=== PATIENT | male | born 1960 | race Caucasian/White ===

== ENCOUNTER 2019-05-22 04:57 | Observation (INO) | payer OTHER ==
[2019-05-22] MEDS ORDERED: DECADRON 10MG INJ. IV ONE (05:08)
[2019-05-22] MEDS ORDERED: BENADRYL 50 MG/ML IV ONE (05:08)
[2019-05-22] MEDS ORDERED: Hydromorphone 1 mg/ml Ampule IV ONE (05:08)
[2019-05-22] MEDS ORDERED: TYLENOL 325 MG PO ONE (05:08)
[2019-05-22] MEDS ORDERED: DECADRON 10MG INJ. ONE (05:27)
[2019-05-22] MEDS ORDERED: BENADRYL 50 MG/ML ONE (05:27)
--- NOTE | 2019-05-22 05:27 | ERPHSYRPT ---
- History of Present Illness Time Seen by Provider: 05/22/19 05:10 Source: patient Exam Limitations: no limitations Patient Subjective Stated Complaint: pt states he woke up in middle of the night with pain in hip that goes down to ouside of lower leg. States it hurt so bad he could not catch his breath. at that point pt took pain meds and came to er. Triage Nursing Assessment: pt alert and oriented, states that his pain in his leg is 8/10. pt arrived in wheelchair and had some difficulty ambulating to bed with his r leg pain. Physician History: Patient has pain in the low back/right hip area radiating down his right thigh down to his foot. Patient denies any recent trauma, repetitive bending or lifting, fevers, chills, urinary retention, uncontrollable diarrhea or perineal numbness. Patient has not had any new weakness in the right lower leg in comparison to the left leg. Patient states he may have had an epidural in lumbar spine over 3 months ago by a buildings painter in [place], [place]. He did have lumbar surgery 2 years ago without any relief of his low back pain. Patient tried his pain medication Percocet without any relief of his symptoms. Timing/Duration: other (chronic pain in his low back that radiates into his leg ; 4 hours prior to coming into the emergency department, patient had a flare-up of pain) Method of Injury: unknown Quality: radiating Back Pain Location: lumbar spine Back Pain Radiation: upper legs (right thigh mainly) Severity of Pain-Max: severe Severity of Pain-Current: severe Modifying Factors: Improves With: pain medication (minimal relief). Worsens With: rest (laying flat while sleeping) Associated Symptoms: lower back pain, No fever, No chills, No sweating, No urinary incontinence, No loss of bowel control, No constipation, No nausea, No vomiting, No problems urinating, No light-headedness, No dizziness, No numbness in legs/feet, No weakness, No tingling in legs/feet, No muscle spasms Previous symptoms: same symptoms as today, no recent treatment Allergies/Adverse Reactions: No Known Drug Allergies Allergy (Verified 05/22/19 05:19) Home Medications: Hydrocodone Bit/Acetaminophen [Gattman 10-325 Tablet] 1 each PO QID 12/23/14 [ History] Citalopram Hydrobromide 20 mg* [ceLEXa 20 MG] 20 mg PO DAILY 12/31/15 [ History] Omeprazole 20 MG [Prilosec 20 mg] 20 mg PO BID 12/31/15 [History] Amlodipine Besylate/Valsartan [Amlodipine-Valsartan 10-320 mg] 1 each PO DAILY 12/03/16 [History] Benazepril HCl 10 mg [Lotensin 10 MG] 10 mg PO DAILY 12/03/16 [History] Methocarbamol [Robaxin-750] 750 mg PO Q6H 12/03/16 [History] Naproxen 375 mg [Naprosyn 375 mg] 375 mg PO BID 12/03/16 [History] Nitroglycerin 0.4 mg Tablet [Nitrostat 0.4 MG Tablet] 0.4 mg SL Q5MIN PRN MR X 3 PRN 12/03/16 [History] Simvastatin [Zocor] 20 mg PO DAILY 12/03/16 [History] Tizanidine HCl 4 mg [Zanaflex 4 MG] 4 mg PO TIDPRN PRN 08/04/17 [History] Hx Influenza Vaccination/Date Given: No Hx Pneumococcal Vaccination/Date Given: No - Review of Systems Constitutional: No Fever, No Chills, No Fatigue Eyes: No Symptoms, No Eye Pain, No Vision Changes Ears, Nose, & Throat: No Symptoms, No Throat Swelling, No Painful Swallowing, No Stridor Respiratory: No Cough, No Dyspnea Cardiac: No Chest Pain, No Edema, No Syncope Abdominal/Gastrointestinal: No Abdominal Pain, No Nausea, No Vomiting, No Diarrhea, No Hematemesis, No Hematochezia, No Melena Genitourinary Symptoms: No Dysuria, No Frequency, No Hematuria, No Flank Pain Musculoskeletal: Back Pain, No Neck Pain Skin: No Rash Neurological: No Dizziness, No Focal Weakness, No Headache, No Parasthesia, No Sensory Changes, No Speech Changes Psychological: No Symptoms Endocrine: No Symptoms Hematologic/Lymphatic: No Easy Bleeding, No Easy Bruising All Other Systems: Reviewed and Negative - Past Medical History Pertinent Past Medical History: Yes Neurological History: No Pertinent History ENT History: No Pertinent History Cardiac History: Angina, Coronary Artery Disease, Hypertension Respiratory History: Asthma, COPD Endocrine Medical History: Diabetes Type II, Liver Disease Musculoskeletal History: Arthritis GI Medical History: Ulcer History: No Pertinent History Psycho-Social History: Depression Male Reproductive Disorders: No Pertinent History Other Medical History: DM2. - Past Surgical History Past Surgical History: Yes Neuro Surgical History: No Pertinent History Cardiac: Cardiac Catheterization Respiratory: No Pertinent History Gastrointestinal: Cholecystectomy Genitourinary: No Pertinent History Musculoskeletal: Joint Replacement, Orthopedic Surgery Male Surgical History: No Pertinent History Other Surgical History: gastric bypass. rt knee arthroscopy and replacement, VINCENT - Social History Smoking Status: Never smoker Exposure to second hand smoke: No Drug Use: none Patient Lives Alone: No - Nursing Vital Signs Nursing Vital Signs: Initial Vital Signs Temperature 97.9 F 05/22/19 05:02 Pulse Rate 77 05/22/19 05:02 Respiratory Rate 16 05/22/19 05:02 O2 Sat by Pulse Oximetry 95 05/22/19 05:02 Pain Scale Pain Intensity [Right Calf] 8 Pain Intensity 6 - Physical Exam General Appearance: no apparent distress, alert Eye Exam: PERRL/EOMI, eyes nml inspection, No scleral icterus, No pale conjunctivae Ears, Nose, Throat Exam: pharynx normal, moist mucous membranes Neck Exam: normal inspection, non-tender, supple, full range of motion, No meningismus, No midline tenderness Respiratory Exam: normal breath sounds, lungs clear, airway intact, No respiratory distress, No diminished breath sounds, No accessory muscle use, No crackles/rales, No rhonchi, No wheezing, No stridor Cardiovascular Exam: regular rate/rhythm, normal heart sounds, normal peripheral pulses, capillary refill <2 sec Gastrointestinal Exam: soft, normal bowel sounds, No tenderness, No mass, No guarding, No rebound Back Exam: decreased range of motion, No CVA tenderness, No vertebral tenderness , No point tenderness Extremity Exam: normal inspection, normal range of motion, No calf tenderness, No pedal edema Neurologic Exam: alert, oriented x 3, cooperative, hospital sales representative II-XII nml as tested, normal mood/affect, nml station & gait, sensation nml, No motor deficits Skin Exam: normal color, warm, dry, No rash SpO2 Interpretation: normal SpO2: 95 O2 Delivery: Room Air - Course Nursing assessment & vital signs reviewed: Yes EKG Interpreted by Me: RATE, NORMAL AXIS, NORMAL INTERVALS, NORMAL QRS, NORMAL ST-T, Other (no change in comparison to EKG from 05/18/2017) Rhythm Strip: Normal Sinus Rhythm - CT Exams Abdomen CT Interpretation: Other (per Radiologist Interpretation: Mild diffuse fecal stasis, colonic diverticulosis. 1 cm right renal cyst, mild fatty liver and multilevel DDD. Normal appendix. Gastric bypass symptoms and meehan catheter in situ) Ordered Tests: Active Orders 24 hr Category Date Time Status Pneumatic Deicer Inspector STAT Care 05/22/19 05:35 Active Catheter-Roselle Meehan STAT Care 05/22/19 06:18 Active EKG-ER Only STAT Care 05/22/19 06:10 Active IV Insertion STAT Care 05/22/19 05:08 Active ABDOMEN AND PELVIS W/0 CONTRAS [CT] Stat Exams 05/22/19 06:12 Taken AMYLASE Stat Lab 05/22/19 05:15 Completed CBC W DIFF Stat Lab 05/22/19 05:15 Completed CK-Creatinine Phosphokinase Stat Lab 05/22/19 05:15 Completed CMP Stat Lab 05/22/19 05:15 Completed LIPASE Stat Lab 05/22/19 05:15 Completed Lactic Acid Stat Lab 05/22/19 05:32 Completed MAGNESIUM Stat Lab 05/22/19 05:15 Completed PROTIME WITH INR Stat Lab 05/22/19 05:15 Completed TROPONIN Q3H Lab 05/22/19 05:15 Received TROPONIN Q3H Lab 05/22/19 08:45 Ordered TROPONIN Q3H Lab 05/22/19 11:45 Ordered TROPONIN Q3H Lab 05/22/19 14:45 Ordered TROPONIN Q3H Lab 05/22/19 17:45 Ordered UA W/RFX UR CULTURE Stat Lab 05/22/19 05:33 Completed Urine Triage Profile Stat Lab 05/22/19 05:33 Ordered Transfer Order Routine Transfer 05/22/19 Ordered Medication Summary Discontinued Medications Generic Name Dose Route Start Last Admin Trade Name Freq PRN Reason Stop Dose Admin Acetaminophen 975 mg 05/22/19 05:08 05/22/19 05:30 Tylenol 325 Mg PO 05/22/19 05:09 975 mg STAT ONE Administration Acetaminophen Confirm 05/22/19 05:28 Tylenol 325 Mg Administered 05/22/19 05:29 Dose 975 mg .ROUTE .STK-MED ONE Calcium Gluconate 1,000 mg 05/22/19 06:12 05/22/19 06:47 Calcium Gluconate 10% 1000 Mg IV 05/22/19 06:13 1,000 mg STAT ONE Administration Calcium Gluconate Confirm 05/22/19 06:26 Calcium Gluconate 10% 1000 Mg Administered 05/22/19 06:27 Dose 1,000 mg IV .STK-MED ONE Dexamethasone Sodium Phosphate 10 mg 05/22/19 05:08 05/22/19 05:31 Decadron 10mg Inj. IV 05/22/19 05:09 10 mg STAT ONE Administration Dexamethasone Sodium Phosphate Confirm 05/22/19 05:27 Decadron 10mg Inj. Administered 05/22/19 05:28 Dose 10 mg .ROUTE .STK-MED ONE Dextrose 50 ml 05/22/19 06:12 05/22/19 06:47 D50w 50 Ml Abboject IV 05/22/19 06:13 50 ml STAT ONE Administration Diphenhydramine HCl 50 mg 05/22/19 05:08 05/22/19 07:03 Benadryl 50 Mg/Ml IV 05/22/19 05:09 Not Given STAT ONE Diphenhydramine HCl Confirm 05/22/19 05:27 Benadryl 50 Mg/Ml Administered 05/22/19 05:28 Dose 50 mg .ROUTE .STK-MED ONE Hydromorphone HCl 2 mg 05/22/19 05:08 05/22/19 07:04 Hydromorphone 1 Mg/Ml Ampule IV 05/22/19 05:09 Not Given STAT ONE Hydromorphone HCl Confirm 05/22/19 05:28 Hydromorphone 1 Mg/Ml Ampule Administered 05/22/19 05:29 Dose 2 mg .ROUTE .STK-MED ONE Sodium Chloride Confirm 05/22/19 05:34 Sodium Chloride 0.9% 1000 Ml Administered 05/22/19 05:35 Dose 1,000 mls @ ud .ROUTE .STK-MED ONE Sodium Chloride 1,000 mls @ 999 mls/hr 05/22/19 05:32 05/22/19 07:14 Sodium Chloride 0.9% 1000 Ml IV 05/22/19 06:32 Infused .Q1H1M STA Infusion Sodium Chloride 1,000 mls @ 999 mls/hr 05/22/19 06:12 05/22/19 07:08 Sodium Chloride 0.9% 1000 Ml IV 05/22/19 07:12 999 mls/hr .Q1H1M STA Administration Sodium Chloride Confirm 05/22/19 07:07 Sodium Chloride 0.9% 1000 Ml Administered 05/22/19 07:08 Dose 1,000 mls @ ud .ROUTE .STK-MED ONE Insulin Human Regular 10 unit 05/22/19 06:12 05/22/19 06:36 Novolin R IV 05/22/19 06:13 10 unit STAT ONE Administration Insulin Human Regular Confirm 05/22/19 06:37 Novolin R Administered 05/22/19 06:38 Dose 10 unit .ROUTE .STK-MED ONE Sodium Bicarbonate 50 meq 05/22/19 06:12 05/22/19 06:53 Sodium Bicarbonate 50 Meq/50 Ml Abboject IV 05/22/19 06:13 50 meq STAT ONE Administration Sodium Bicarbonate Confirm 05/22/19 06:51 Sodium Bicarbonate 50 Meq/50 Ml Abboject Administered 05/22/19 06:52 Dose 50 meq IV .STK-MED ONE Lab/Rad Data: Laboratory Result Diagrams 05/22/19 05:15 05/22/19 05:15 Laboratory Results 05/22/19 05/22/19 05/22/19 Range/Units 05:33 05:32 05:15 WBC (4.0-10.5) K/mm3 RBC (4.1-5.6) M/mm3 Hgb (12.5-18.0) gm/dl Hct (42-50) % MCV (78-100) fl MCH (26-32) pg MCHC (32-36) g/dl RDW (11.5-14.0) % Plt Count (150-450) K/mm3 MPV (6-9.5) fl Gran % (36.0-66.0) % Eos # (Auto) (0-0.5) Absolute Lymphs (auto) (1.0-4.6) Absolute Monos (auto) (0.0-1.3) Lymphocytes % (24.0-44.0) % Monocytes % (0.0-12.0) % Eosinophils % (0.00-5.0) % Basophils % (0.0-0.4) % Absolute Granulocytes (1.4-6.9) Basophils # (0-0.4) PT (8.83-12.87) SECONDS INR (0.8-3.0) Sodium (137-145) mmol/L Potassium (3.5-5.1) mmol/L Chloride (98-107) mmol/L Carbon Dioxide (22-30) mmol/L Anion Gap (5-15) MEQ/L BUN (9-20) mg/dL Creatinine (0.66-1.25) mg/dL Estimated GFR ML/MIN Glucose (74-106) mg/dL Lactic Acid 1.8 (0.4-2.0) Calcium (8.4-10.2) mg/dL Magnesium (1.6-2.3) mg/dL Total Bilirubin (0.2-1.3) mg/dL AST (17-59) U/L ALT (0-50) U/L Alkaline Phosphatase (38-126) U/L Creatine Kinase 348 H (55-170) U/L Serum Total Protein (6.3-8.2) g/dL Albumin (3.5-5.0) g/dL Amylase (30-110) U/L Lipase (23-300) U/L Urine Color YELLOW (YELLOW) Urine Appearance CLEAR (CLEAR) Urine pH 5.0 (5-6) Ur Specific [place] 1.017 (1.005-1.025) Urine Protein NEGATIVE (Negative) Urine Ketones NEGATIVE (NEGATIVE) Urine Blood NEGATIVE (0-5) Kristopher/ul Urine Nitrite NEGATIVE (NEGATIVE) Urine Bilirubin NEGATIVE (NEGATIVE) Urine Urobilinogen NEGATIVE (0-1) mg/dL Ur Leukocyte Esterase NEGATIVE (NEGATIVE) Urine WBC (Auto) 0-2 (0-5) /HPF Urine RBC (Auto) NONE (0-2) /HPF U Hyaline Cast (Auto) 0-2 (0-2) /LPF U Epithel Cells (Auto) NONE (FEW) /HPF Urine Bacteria (Auto) NONE (NEGATIVE) /HPF Urine Mucus (Auto) SLIGHT (NEGATIVE) /HPF Urine Culture Reflexed NO (NO) Urine Glucose NEGATIVE (NEGATIVE) mg/dL 05/22/19 05/22/19 05/22/19 Range/Units 05:15 05:15 05:15 WBC 13.2 H (4.0-10.5) K/mm3 RBC 4.19 (4.1-5.6) M/mm3 Hgb 11.0 L (12.5-18.0) gm/dl Hct 36.0 L (42-50) % MCV 85.9 (78-100) fl MCH 26.2 (26-32) pg MCHC 30.6 L (32-36) g/dl RDW 17.0 H (11.5-14.0) % Plt Count 256 (150-450) K/mm3 MPV 10.9 H (6-9.5) fl Gran % 82.8 H (36.0-66.0) % Eos # (Auto) 0.44 (0-0.5) Absolute Lymphs (auto) 1.04 (1.0-4.6) Absolute Monos (auto) 0.76 (0.0-1.3) Lymphocytes % 7.9 L (24.0-44.0) % Monocytes % 5.8 (0.0-12.0) % Eosinophils % 3.3 (0.00-5.0) % Basophils % 0.2 (0.0-0.4) % Absolute Granulocytes 10.92 H (1.4-6.9) Basophils # 0.03 (0-0.4) PT 12.9 H (8.83-12.87) SECONDS INR 1.14 (0.8-3.0) Sodium 140 (137-145) mmol/L Potassium 6.1 H* (3.5-5.1) mmol/L Chloride 106 (98-107) mmol/L Carbon Dioxide 24 (22-30) mmol/L Anion Gap 16.3 H (5-15) MEQ/L BUN 30 H (9-20) mg/dL Creatinine 3.71 H (0.66-1.25) mg/dL Estimated GFR 17.9 ML/MIN Glucose 207 H (74-106) mg/dL Lactic Acid (0.4-2.0) Calcium 9.2 (8.4-10.2) mg/dL Magnesium 2.1 (1.6-2.3) mg/dL Total Bilirubin 0.30 (0.2-1.3) mg/dL AST 35 (17-59) U/L ALT 27 (0-50) U/L Alkaline Phosphatase 85 (38-126) U/L Creatine Kinase (55-170) U/L Serum Total Protein 7.9 (6.3-8.2) g/dL Albumin 4.4 (3.5-5.0) g/dL Amylase 67 (30-110) U/L Lipase 62 (23-300) U/L Urine Color (YELLOW) Urine Appearance (CLEAR) Urine pH (5-6) Ur Specific [place] (1.005-1.025) Urine Protein (Negative) Urine Ketones (NEGATIVE) Urine Blood (0-5) Kristopher/ul Urine Nitrite (NEGATIVE) Urine Bilirubin (NEGATIVE) Urine Urobilinogen (0-1) mg/dL Ur Leukocyte Esterase (NEGATIVE) Urine WBC (Auto) (0-5) /HPF Urine RBC (Auto) (0-2) /HPF U Hyaline Cast (Auto) (0-2) /LPF U Epithel Cells (Auto) (FEW) /HPF Urine Bacteria (Auto) (NEGATIVE) /HPF Urine Mucus (Auto) (NEGATIVE) /HPF Urine Culture Reflexed (NO) Urine Glucose (NEGATIVE) mg/dL - Progress Progress: improved Progress Note: 05/22/19 06:26 Patient's blood pressure has improved with IV hydration to normal range. Cardiac monitory does not show any arrhythmias, peaked T waves or and QRS widening. Discussed with .: Gilbert (@[id number], Discussed the patient with Dr Hurtado, patient's physician and hospitalist. Dr Hurtado accepted the patient for observation to [facility] telemetry) Counseled pt/family regarding: lab results, diagnosis, need for follow-up, rad results - Departure Departure Disposition: Observation (to [facility] telemetry) Clinical Impression: Acute on chronic renal insufficiency, Hyperkalemia, Elevated CPK, Acute exacerbation of chronic low back pain Hypotension Qualifiers: Hypotension type: unspecified hypotension type Qualified Code(s): I95.9 - Hypotension, unspecified Condition: Fair Critical Care Time: Yes Referrals: LAWANDA HURTADO [Primary Care Provider] -
[2019-05-22] MEDS ORDERED: Hydromorphone 1 mg/ml Ampule ONE (05:28)
[2019-05-22] MEDS ORDERED: TYLENOL 325 MG ONE (05:28)
[2019-05-22] MEDS ORDERED: Sodium Chloride 0.9% 1000 ML 1,000 ML IV STA ×2 (05:32→06:12)
[2019-05-22] MEDS ORDERED: Sodium Chloride 0.9% 1000 ML 1,000 ML ONE ×2 (05:34→07:07)
[2019-05-22 05:42] LABS: Absolute Neutrophil Ct (ANC) 10.92 (1.4-6.9); BASOPHIL % 0.2 % (0.0-0.4); Basophil (Absolute #) 0.03 (0-0.4); Eosinophil % 3.3 % (0.00-5.0); Eosinophil (Absolute #) 0.44 (0-0.5); Lymphocyte (Absolute #) 1.04 (1.0-4.6); Lymphocytes % 7.9 % (24.0-44.0); Mean Cell Volume 85.9 fl (78-100); Mean Corpuscular Hemoglobin 26.2 pg (26-32); Mean Corpuscular Hgb Concent. 30.6 g/dl (32-36); Mean Platelet Volume 10.9 fl (6-9.5); Monocyte (Absolute #) 0.76 (0.0-1.3); Monocytes % 5.8 % (0.0-12.0); Neutrophil % 82.8 % (36.0-66.0); Platelet Count 256 K/mm3 (150-450); Red Blood Count 4.19 M/mm3 (4.1-5.6); White Blood Count 13.2 K/mm3 (4.0-10.5)
[2019-05-22 05:50] LABS: INR 1.14 (0.8-3.0); PROTIME 12.9 SECONDS (8.83-12.87)
[2019-05-22 05:55] LABS: ALBUMIN 4.4 g/dL (3.5-5.0); ANION GAP 16.3 MEQ/L (5-15); BILIRUBIN,TOTAL 0.3 mg/dL (0.2-1.3); Calcium 9.2 mg/dL (8.4-10.2); Creatinine 1 3.71 mg/dL (0.66-1.25); MAGNESIUM 2.1 mg/dL (1.6-2.3); Total Protein 7.9 g/dL (6.3-8.2)
[2019-05-22 06:09] LABS: Potassium 6.1 mmol/L (3.5-5.1)
[2019-05-22] MEDS ORDERED: D50W 50 ml Abboject IV ONE ×2 (06:12→20:41)
[2019-05-22] MEDS ORDERED: Calcium Gluconate 10% 1000 MG IV ONE ×5 (06:12→20:43)
[2019-05-22] MEDS ORDERED: SODIUM BICARBONATE 50 MEQ/50 ML ABBOJECT IV ONE ×4 (06:12→20:48)
[2019-05-22] MEDS ORDERED: NovoLIN R IV ONE ×2 (06:12→20:44)
[2019-05-22] MEDS ORDERED: NovoLIN R ONE (06:37)
[2019-05-22 06:58] LABS: Appearance CLEAR (CLEAR); Bilirubin NEGATIVE (NEGATIVE); Blood NEGATIVE Ery/ul (0-5); Glucose NEGATIVE (NEGATIVE); Hyaline Casts 0-2 /LPF (0-2); Ketones NEGATIVE (NEGATIVE); Leukocyte Esterase NEGATIVE (NEGATIVE); Mucus SLIGHT /HPF (NEGATIVE); Nitrite NEGATIVE (NEGATIVE); Protein,Urine Dip NEGATIVE (Negative); Specific Gravity 1.017 (1.005-1.025); Urobilinogen NEGATIVE mg/dL (0-1); WBC 0-2 /HPF (0-5)
[2019-05-22 07:25] LABS: Amphetamine,Urine NEGATIVE (NEGATIVE); Barbiturate,Urine NEGATIVE (NEGATIVE); Benzodiazepine,Urine POSITIVE (NEGATIVE); Cocaine,Urine NEGATIVE (NEGATIVE); Methadone,Urine NEGATIVE (NEGATIVE); Opiate,Urine POSITIVE (NEGATIVE); PCP,Urine NEGATIVE (NEGATIVE); THC,Urine NEGATIVE (NEGATIVE)
[2019-05-22] MEDS ORDERED: TYLENOL 325 MG PO PRN (08:30)
[2019-05-22] MEDS ORDERED: NovoLIN R SQ PRN (08:30)
--- NOTE | 2019-05-22 08:51 | XRAY ---
Indication: Low back pain radiating right leg. Multiple contiguous axial images obtained through the abdomen and pelvis without contrast as ordered. Comparison: None Lung bases are grossly clear. Heart is not enlarged. There has been previous gastric bypass surgery. Noncontrasted stomach and bowel loops appear nonobstructed. Normal appendix. Mild diffuse scattered colonic fecal debris throughout. Also mild scattered descending/sigmoid diverticulosis. Espinoza balloon catheter empties the urinary bladder. No free fluid/air. Mild fatty liver, fatty replaced pancreas, and previous cholecystectomy. 1 cm right inferior renal cyst. Remaining liver, pancreas, spleen, adrenal glands, kidneys, ureters, and bladder appear unremarkable for noncontrast exam. Minimal scattered aortoiliac calcifications without AAA. Osseous structures demonstrates mild/moderate degenerative changes throughout the thoracolumbar spine. Impression: 1. Mild fecal stasis without obstruction, colonic diverticulosis, fatty liver, right renal cyst, and Espinoza catheter in situ. 2. No acute intra-abdominal/pelvic abnormalities on this noncontrast exam. CTDI 24.17
--- NOTE | 2019-05-22 09:33 | HP ---
CHIEF COMPLAINT: Right leg pain and fall. HISTORY OF PRESENT ILLNESS: The patient is a 58 year-old white male patient with history of previous back problems, degenerative disc disease. He has had previous injections in his spine. He recently had problems with increasing pain and placed on naproxen and Zanaflex for his back pain. The patient was also recently found to be diabetic once again and started back on Metformin. The patient had been having trouble also with obstructive uropathy issues for which he had been placed on prostate medications as well. On presentation the patient reported that he had gotten increasing pain in his back and had gotten out of his bed to go to the bathroom and had fallen due to his right leg giving way. He has been having pain on a scale of 8 to 10 in that leg. Since that time and his presentation to the emergency room, the patient was found to be hypotensive and he had blood tests showing his creatinine had risen to above 3. The patient reports that he has had a previous problem with his kidneys after having taken naproxen but it had been good until just recently. PAST MEDICAL HISTORY: Again significant for his back issues, previous renal insufficiency, diabetes mellitus type 2 and hyperlipidemia. PAST SURGICAL HISTORY: The patient apparently previously had gastric bypass. MEDICATIONS: The patient's current home medications include Percocet 10/325 mg PRN, Celexa 20 mg a day, omeprazole 20 mg b.i.d., amlodipine/valsartan 10/320 mg daily, benazepril 10 mg daily, Robaxin 750 mg, nitroglycerin PRN, Simvastatin 20 mg, Zanaflex 10 mg b.i.d. ALLERGIES: NKDA. PHYSICAL EXAMINATION: Reveals a well-nourished, well-developed, somewhat obese white male patient currently in mild distress due to his back pain. VITAL SIGNS: His vital signs on admission showed temperature 97.9F, pulse 77 and respiratory rate 16. O2 saturation 95%. His blood pressure was 90 systolic on initial presentation but after fluids had risen to above 100 and most recently was 131 systolic. HEENT: Normocephalic, atraumatic. Pupils equal round reactive to light. Extraocular movements intact. Oropharynx is pink and moist. NECK: Supple without lymphadenopathy, thyromegaly or JVD. CHEST: Clear to auscultation. HEART: Regular rate and rhythm. ABDOMEN: Soft. No palpable masses. EXTREMITIES: Without cyanosis, clubbing or edema. NEUROLOGIC: The patient is alert and oriented x3. No focal deficits were noted. LAB DATA AND TESTS: His CT scan showing mild diverticulosis, fecal stasis, small right renal cyst and degenerative disc disease multi-level. No acute process was otherwise present. The patient's CPK was elevated at 348. His UA specific gravity 1.017 but otherwise essentially normal. Specifically negative for protein on urine dipstick. Lactic acid was 1.8. International normalized ratio 1.14. Sugar 207 nonfasting, BUN 30, creatinine 3.71, potassium 6.1. Electrolytes were otherwise normal. CO2 was normal at 24. Liver enzymes were normal. Amylase and lipase were normal. CBC showed a white count 13,200, hemoglobin 11.0, PLT count 256,000. There did appear to be a left shift with 82.8% granulocytes. Troponins were less than 0.012. Urine drug screen was positive for benzodiazepines and opiates. The patient had a rhythm strip showing normal sinus rhythm. There did appear to be some delay in precordial lead concerning for coronary artery disease. ASSESSMENT: A patient with hypertension, acute renal insufficiency, possible post-obstructive uropathy. Espinoza catheter has been placed. The patient has been given IV fluids. He has already been given. He was already given glucose and insulin in the emergency room as well as potassium. His hypertension has resolved with the IV fluids in the emergency room. We will maintain his IV fluids at half-normal saline at 150 cc/hour. We will obtain a nephrology consult checking albumin levels to see if there is any bacterial component to his illness. We will obtain blood cultures and urine cultures. We will place him on a sliding scale coverage for his sugars. Apparently the patient had also been recently placed on Metformin having been diagnosed with diabetes that may be contributing to his renal problems as well, this will be discontinued as well at this point. We will monitor him closely on telemetry due to his hyperkalemia. Otherwise the patient may take his Percocet for pain control. We will obtain PT evaluation for his sciatic pain.
[2019-05-22] MEDS: ZOCOR 20MG PO SCH (10:13)
[2019-05-22] MEDS: Pepcid 20 MG PO SCH ×2 (10:13→21:32)
[2019-05-22] MEDS: ceLEXa 20 MG PO SCH (10:14)
[2019-05-22] MEDS: Flomax 0.4 MG PO SCH (10:14)
[2019-05-22] MEDS: Avodart 0.5 MG PO SCH (10:14)
[2019-05-22] MEDS: Zanaflex 4 MG PO SCH ×3 (10:14→21:32)
[2019-05-22] MEDS: OXYCODONE-ACETAMINOPHEN 10-325 PO PRN ×3 (10:18→21:35)
[2019-05-22 11:46] LABS: Hematocrit 35.6 % (42-50); Hemoglobin 10.8 gm/dl (12.5-18.0); Mean Corpuscular Hgb Concent. 30.3 g/dl (32-36); Mean Platelet Volume 10.6 fl (6-9.5); Platelet Count 229 K/mm3 (150-450); Red Blood Count 4.14 M/mm3 (4.1-5.6); Red Cell Distribution Width 16.7 % (11.5-14.0); White Blood Count 11.7 K/mm3 (4.0-10.5)
[2019-05-22 12:20] LABS: ANION GAP 14.4 MEQ/L (5-15); Calcium 8.9 mg/dL (8.4-10.2); Creatinine 1 3.1 mg/dL (0.66-1.25)
[2019-05-22 12:38] LABS: Potassium 6.2 mmol/L (3.5-5.1)
[2019-05-22] MEDS ORDERED: Kayexylate 15 GM/60 ML PO ONE ×2 (13:20→14:30)
[2019-05-22] MEDS: NovoLOG Insulin SQ PRN ×2 (13:42→18:14)
[2019-05-22 19:30] LABS: ALBUMIN 4.3 g/dL (3.5-5.0); ANION GAP 15.8 MEQ/L (5-15); BILIRUBIN,TOTAL 0.4 mg/dL (0.2-1.3); Calcium 9.5 mg/dL (8.4-10.2); Creatinine 1 2.46 mg/dL (0.66-1.25); Total Protein 7.8 g/dL (6.3-8.2)
[2019-05-22 19:36] LABS: Potassium 6.6 mmol/L (3.5-5.1)
[2019-05-22] MEDS ORDERED: Lasix 20 MG/2 ML IV ONE (20:49)
[2019-05-22] MEDS: Sodium Chloride 0.9% 10 ML FLUSH Syringe IV PRN ×3 (21:56→22:10)
[2019-05-23] MEDS: OXYCODONE-ACETAMINOPHEN 10-325 PO PRN ×3 (04:47→20:50)
[2019-05-23 04:58] LABS: Hematocrit 35.8 % (42-50); Hemoglobin 11.2 gm/dl (12.5-18.0); Mean Cell Volume 84.2 fl (78-100); Mean Corpuscular Hgb Concent. 31.3 g/dl (32-36); Mean Platelet Volume 10.7 fl (6-9.5); Platelet Count 270 K/mm3 (150-450); Red Blood Count 4.25 M/mm3 (4.1-5.6); Red Cell Distribution Width 16.7 % (11.5-14.0)
[2019-05-23 05:00] LABS: Mean Corpuscular Hemoglobin 26.3 pg (26-32)
[2019-05-23 05:10] LABS: Iron 104 ug/dL (49-181); Iron Saturation 30 % (20-39); TIBC 344 ug/dL (261-497)
[2019-05-23 06:09] LABS: ALBUMIN 4.2 g/dL (3.5-5.0); ANION GAP 13.9 MEQ/L (5-15); BILIRUBIN,TOTAL 0.5 mg/dL (0.2-1.3); Calcium 9.9 mg/dL (8.4-10.2); Creatinine 1 1.83 mg/dL (0.66-1.25); Ferritin 65.7 ng/mL (17.9-464); Folate (Folic Acid) 6.81 ng/mL (2.76 - >20); Potassium 4.2 mmol/L (3.5-5.1); Total Protein 7.5 g/dL (6.3-8.2)
--- NOTE | 2019-05-23 08:22 | CONS ---
CONSULT DATE: 05/22/2019 REASON FOR CONSULT: Acute renal failure, hyperkalemia. HISTORY: The patient is a 58 year-old gentleman with multiple medical problems including diabetes mellitus type 2, hypertension who has been feeling poorly for the last few days. He has been feeling weak and tired, occasionally confused, has been feeling dizzy, lightheaded. He also has some degenerative disc disease and back pain. His pain in the back was getting worse and was not able to feel good. He presented to the emergency room and he was found to have low blood pressure. His creatinine was found to be greater than 3 and noted to have high potassium and he was admitted for further management and nephrology service was consulted. The patient denies any active vomiting or diarrhea. He said he has been feeling dizzy, lightheaded. He has not been drinking water. He mainly used to drink Mountain Dew. He gave some history of acute kidney injury several years ago with NSAID's. He does not follow with a psychology teacher. REVIEW OF SYSTEMS: All other systems were reviewed negative except as listed above. PAST MEDICAL HISTORY: Diabetes mellitus type 2, hypertension, hyperlipidemia, back pain. Cardiac disease, chronic obstructive pulmonary disease, osteoarthritis, depression. PAST SURGICAL HISTORY: Includes gastric bypass surgery. MEDICATIONS: Home medicines include amlodipine/valsartan and Benazepril along with other medication all of which were reviewed. ALLERGIES: NKDA. SOCIAL HISTORY: Denies any tobacco, alcohol or substance abuse. He is and lives with his . FAMILY HISTORY: Denies any history of kidney disease in the family. PHYSICAL EXAMINATION: The patient is awake, alert and oriented x3. No acute distress. Vital signs reviewed at bedside on the floor. HEENT: Head - Atraumatic, normocephalic. Eyes - Nonicteric. Positive icterus. No pallor. ENT: Mucosa moist. NECK: No JVD. Trachea midline. CHEST: Clear to auscultation bilaterally. No respiratory distress. CVS: Appears regular. No peripheral edema. ABDOMEN: Soft, nontender. Positive bowel sounds. No organomegaly. EXTREMITIES: No peripheral edema. NEURO: Awake, alert, oriented. Following commands. PSYCH: Appropriate mood and affect. SKIN: Warm and dry. LAB DATA AND TESTS: Labs reviewed. Creatinine 3.7, potassium 6.1, CPK 348. CT scan of abdomen showed diverticulosis and fecal stasis, small right renal cyst, degenerative disc disease. CBC showed white blood cell count 13,000, hemoglobin 11.0. Urine drug screen positive for benzodiazepine and opiate. ASSESSMENT AND PLAN: 1) Acute kidney disease likely secondary to both LIDIA and ARB combination and the combination of dehydration. I recommend at this time holding both LIDIA and ARB. Once his renal functions stabilizes he may go on one but not on both LIDIA or ARB. 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 His glomerular filtration rate in the last three years has been in the 40 to 50 range. I will add work up including ultrasound of the kidneys. I will check urine protein-creatinine ratio. I will evaluate for paraproteinemia and check ANCA panel and autoimmune diseases for the cause of renal dysfunction. I recommend renal dosing of all medications, avoiding nephrotoxins. 2) Hypertension: I recommend avoiding LIDIA and ARB combination and once his renal functions stabilizes he may go on one. Right now both should be on hold and using alternative agents. 3) Diabetes mellitus type 2: I recommend avoiding Metformin using alternative agents. 4) Gout: I recommend avoiding NSAID's and using alternative agents. I will monitor him closely. 5) Pain and depression: He will undergo medical management per primary team. I will continue to follow him closely. The patient's accompanying family members are updated at bedside. All questions were answered. 6) Anemia: I will check iron, B12, CMP, ferritin, folic acid and magnesium closely. Thank you for the consultation on this patient. Please do not hesitate to contact me for any questions.
--- NOTE | 2019-05-23 10:06 | XRAY ---
Indication: Hyperkalemia. Two-dimensional renal sonogram performed. Comparison: January 20, 2018. Right kidney measures 9.9 x 5.3 x 4.0 cm with new 1.1 cm cortical cyst. Left kidney measures 10.3 x 5.4 x 5.0 cm. No other solid/cystic renal mass or hydronephrosis. Cortical medullary differentiation preserved. Espinoza catheter empties the urinary bladder. Impression: New right renal cyst in a otherwise negative renal sonogram.
[2019-05-23 10:48] LABS: Appearance CLEAR (CLEAR); Bacteria RARE /HPF (NEGATIVE); Bilirubin NEGATIVE (NEGATIVE); Blood MODERATE Ery/ul (0-5); Glucose NEGATIVE (NEGATIVE); Ketones NEGATIVE (NEGATIVE); Leukocyte Esterase NEGATIVE (NEGATIVE); Mucus SLIGHT /HPF (NEGATIVE); Nitrite NEGATIVE (NEGATIVE); Protein,Urine Dip NEGATIVE (Negative); Specific Gravity 1.009 (1.005-1.025); Urobilinogen NEGATIVE mg/dL (0-1); WBC 0-2 /HPF (0-5)
[2019-05-23] MEDS: Zanaflex 4 MG PO SCH ×3 (11:42→22:52)
[2019-05-23] MEDS: ceLEXa 20 MG PO SCH (11:42)
[2019-05-23] MEDS: Flomax 0.4 MG PO SCH (11:42)
[2019-05-23] MEDS: ZOCOR 20MG PO SCH (11:42)
[2019-05-23] MEDS: Avodart 0.5 MG PO SCH (11:42)
[2019-05-23] MEDS: Pepcid 20 MG PO SCH ×2 (11:43→20:50)
[2019-05-23 12:04] LABS: 24 HR TOT. PROTEIN CALCULATION 1.44 GM/DAY (0.04-0.15)
[2019-05-23] MEDS: NovoLOG Insulin SQ PRN (23:02)
[2019-05-24] MEDS: OXYCODONE-ACETAMINOPHEN 10-325 PO PRN (02:50)
[2019-05-24 04:48] LABS: Absolute Neutrophil Ct (ANC) 6.21 (1.4-6.9); BASOPHIL % 0.3 % (0.0-0.4); Basophil (Absolute #) 0.03 (0-0.4); Eosinophil (Absolute #) 0.55 (0-0.5); Hematocrit 34.5 % (42-50); Hemoglobin 10.8 gm/dl (12.5-18.0); Lymphocyte (Absolute #) 1.76 (1.0-4.6); Lymphocytes % 19.1 % (24.0-44.0); Mean Cell Volume 84.1 fl (78-100); Mean Corpuscular Hemoglobin 26.3 pg (26-32); Mean Corpuscular Hgb Concent. 31.3 g/dl (32-36); Mean Platelet Volume 10.9 fl (6-9.5); Monocyte (Absolute #) 0.66 (0.0-1.3); Monocytes % 7.2 % (0.0-12.0); Neutrophil % 67.4 % (36.0-66.0); Platelet Count 239 K/mm3 (150-450); Red Cell Distribution Width 16.5 % (11.5-14.0); White Blood Count 9.2 K/mm3 (4.0-10.5)
[2019-05-24 05:02] LABS: ALBUMIN 3.8 g/dL (3.5-5.0); BILIRUBIN,TOTAL 0.4 mg/dL (0.2-1.3); Calcium 9.3 mg/dL (8.4-10.2); Creatinine 1 1.35 mg/dL (0.66-1.25); Potassium 4.5 mmol/L (3.5-5.1); Total Protein 6.9 g/dL (6.3-8.2)
[2019-05-24 05:09] LABS: COMPLEMENT C3 137 mg/dL (88-201); COMPLEMENT C4 36 mg/dL (10-40)
[2019-05-24 07:25] VITALS: BP 192/86; PULSE 76; O2SAT 92
[2019-05-24] MEDS: NovoLOG Insulin SQ PRN (08:33)
[2019-05-24 09:03] LABS: UR CREATININE CALC 24 H 3.3 g/24 h (1.50-2.00); UR CREATININE RAW 35.1 mg/dL
--- NOTE | 2019-05-24 09:13 | DS ---
DISCHARGE DIAGNOSES: 1) ACUTE RENAL INJURY. 2) HYPERTENSION. 3) HYPERKALEMIA. 4) DIABETES MELLITUS TYPE 2. 5) SCIATIC PAIN FROM DEGENERATIVE DISC DISEASE. HOSPITAL COURSE: The patient is a 58 year-old white male patient who apparently had been feeling ill over the past few days. He presented to the emergency room and was found to be in acute renal failure. He had been taking naproxen and Metformin as well as LIDIA inhibitors and his creatinine had risen to above 3. We did have consultation from nephrology as the patient's potassium was also significantly elevated at 6.1 initially and went to 6.2 and then 6.6 prior to proceeding Kayexalate and other treatments to bring the potassium back down in the normal range. Since then the patient's potassium has been normal. His creatinine has dropped by 05/24/2010 down to 1.35 with a sugar 207 fasting and metabolic panel was normal otherwise. His white count was 9,200, hemoglobin 10.8 and PLT count 239,000 on the day of discharge home. The patient did have renal ultrasound which was essentially negative. He did have proteinuria and we did ask for a urine protein electrophoresis. The patient will have follow up for his hypertension, to see the sail cutter on Tuesday of this week on 05/25/2019. He has an appointment to see me in approximately ten days. He is sent home on insulin sliding scale coverage low dose Humalog in addition to his other home medications which will now include Celexa 40 mg a day, Avodart 0.5 mg a day, Percocet 10/325 mg PRN for pain, Pepcid 20 mg a day, Flomax 0.4 mg a day, Zanaflex 4 mg a day.
[2019-05-24] MEDS: ZOCOR 20MG PO SCH (09:33)
[2019-05-24] MEDS: ceLEXa 20 MG PO SCH (09:33)
[2019-05-24] MEDS: Flomax 0.4 MG PO SCH (09:34)
[2019-05-24] MEDS: Pepcid 20 MG PO SCH (09:34)
[2019-05-24] MEDS: Zanaflex 4 MG PO SCH (09:34)
[2019-05-24] MEDS: Avodart 0.5 MG PO SCH (09:34)
[2019-05-24 16:59] LABS: PROTEIN BETA 2 0.43 g/dL (0.18-0.50); Protein Beta 1 0.43 g/dL (0.35-0.66)
[2019-05-24 17:25] LABS: ANA Pattern Interp Detail See Result Note:
[2019-05-25 14:53] LABS: cANCA IgG Titer Not Indicated (Not Indicated); pANCA IgG Titer Not Indicated (Not Indicated)
[2019-05-28 05:59] LABS: UA1 PCT 7.9 %; UA2 PCT 15.1 %
== END 2019-05-24 10:45 | disposition home or self-care (01) ==
LOC: ED 04:57 → MED SURG 08:15
PROVIDERS: ADMIT Family Medicine; ATTEND Family Medicine
DX: N17.9 Acute kidney failure, unspecified (principal); I12.9 Hypertensive chronic kidney disease with stage 1 through stage 4 chronic kidney disease, or unspecified chronic kidney disease; E11.22 Type 2 diabetes mellitus with diabetic chronic kidney disease; N18.3 Chronic kidney disease, stage 3 (moderate); E87.5 Hyperkalemia; M51.35 Other intervertebral disc degeneration, thoracolumbar region; R41.0 Disorientation, unspecified; R42 Dizziness and giddiness; E78.5 Hyperlipidemia, unspecified; J44.9 Chronic obstructive pulmonary disease, unspecified; E86.0 Dehydration; M10.9 Gout, unspecified; F32.9 Major depressive disorder, single episode, unspecified; D64.9 Anemia, unspecified; M79.604 Pain in right leg; K57.90 Diverticulosis of intestine, part unspecified, without perforation or abscess without bleeding; I95.9 Hypotension, unspecified; Z79.899 Other long term (current) drug therapy
CPT/HCPCS: 36415; 51702; 74176; 76770; 80048; 80053; 80307; 81001; 81050; 82150; 82550; 82570; 82607; 82728; 82746; 82962; 83516; 83540; 83550; 83605; 83690; 83735; 84132; 84134; 84156; 84165; 84166; 84484; 85025; 85027; 85610; 86038; 86039; 86160; 86255; 86256; 86334; 87040; 93005; 93041; 93268; 96360; 96361; 96374; 96375; 97110; 97161; 99285; G0378; J0610; J1100; J1170; J1200; J1940; A9270-GY

== ENCOUNTER 2020-09-17 09:11 | Day surgery (SDC) | payer MEDICARE ==
[2020-09-17] MEDS ORDERED: Xylocaine 1% Vial 30 ML PF IJ ONE (09:12)
[2020-09-17] MEDS ORDERED: BUPIVACAINE 0.5% VIAL IJ ONE (09:12)
[2020-09-17] MEDS ORDERED: Depo-Medrol 40 MG/ML IM ONE (09:12)
[2020-09-17] MEDS ORDERED: Ketamine HCl 50 MG/ML ONE (10:37)
[2020-09-17] MEDS ORDERED: DIPRIVAN 200 MG/20 ML IV ONE (10:37)
--- NOTE | 2020-09-17 12:42 | XRAY ---
Indication: Right L4-S1 RFA Intraoperative fluoroscopy provided for 1 minute 4 seconds. 4 digital spot images submitted for interpretation demonstrates posterior needle tips projecting over the expected right L4-S1 nerve roots. Correlate with intraoperative findings/report.
--- NOTE | 2020-09-17 12:46 | XRAY ---
1 minute and 4 seconds fluoroscopy time in surgery for right L4-S1 RFA.
[2020-09-17] MEDS ORDERED: Lactated Ringers 1,000 ML IV ONE (16:10)
== END 2020-09-17 11:15 | disposition home or self-care (01) ==
LOC: SDC-PAIN 09:11
PROVIDERS: ATTEND Psychiatry & Neurology Pain Medicine
DX: M47.816 Spondylosis without myelopathy or radiculopathy, lumbar region (principal); E11.9 Type 2 diabetes mellitus without complications; I10 Essential (primary) hypertension; E78.5 Hyperlipidemia, unspecified; D64.9 Anemia, unspecified; R79.89 Other specified abnormal findings of blood chemistry; N40.0 Benign prostatic hyperplasia without lower urinary tract symptoms; I25.10 Atherosclerotic heart disease of native coronary artery without angina pectoris; J44.9 Chronic obstructive pulmonary disease, unspecified; M19.90 Unspecified osteoarthritis, unspecified site; F32.9 Major depressive disorder, single episode, unspecified; E11.40 Type 2 diabetes mellitus with diabetic neuropathy, unspecified; Z79.899 Other long term (current) drug therapy
CPT/HCPCS: 64635; 64636; 72100; 77002; 82947; J1030; J2001; J2704

== ENCOUNTER 2021-02-25 07:50 | Day surgery (SDC) | payer MEDICARE ==
[2021-02-25] MEDS ORDERED: Depo-Medrol 40 MG/ML IM ONE (07:51)
[2021-02-25] MEDS ORDERED: Xylocaine 1% Vial 30 ML PF IJ ONE (07:51)
[2021-02-25] MEDS ORDERED: Sodium Chloride 0.9(Preservative Free) 10 ML IJ ONE (07:51)
[2021-02-25] MEDS ORDERED: DIPRIVAN 200 MG/20 ML IV ONE (09:18)
[2021-02-25] MEDS ORDERED: Lactated Ringers 1,000 ML IV ONE (10:30)
--- NOTE | 2021-02-25 17:00 | XRAY ---
28 seconds of fluoroscopy was used in surgery for a lumbar VINCENT.
--- NOTE | 2021-02-27 09:17 | XRAY ---
Indication: Lumbar VINCENT. Intraoperative fluoroscopy was provided for 28 seconds. 2 lateral digital spot images submitted for interpretation demonstrate the posterior needle tip at the level of L4-L5. Some contrast has been injected for needle tip placement. Correlate with intraoperative findings/report.
== END 2021-02-25 10:02 | disposition home or self-care (01) ==
LOC: SDC-PAIN 07:50
PROVIDERS: ATTEND Psychiatry & Neurology Pain Medicine
DX: M54.16 Radiculopathy, lumbar region (principal); E11.9 Type 2 diabetes mellitus without complications; Z79.899 Other long term (current) drug therapy
CPT/HCPCS: 62323; 72100; 77003; 82947; J1030; J2001; J2704; Q9967

== ENCOUNTER 2021-04-15 09:54 | Day surgery (SDC) | payer MEDICARE ==
[2021-04-15] MEDS ORDERED: Depo-Medrol 40 MG/ML IM ONE (09:55)
[2021-04-15] MEDS ORDERED: Sodium Chloride 0.9(Preservative Free) 10 ML IJ ONE (09:55)
[2021-04-15] MEDS ORDERED: DIPRIVAN 200 MG/20 ML IV ONE (11:13)
--- NOTE | 2021-04-15 11:48 | XRAY ---
Indication: Caudal VINCENT. Intraoperative fluoroscopy provided for 23 seconds. 2 digital spot images submitted for interpretation demonstrates caudal needle tip projecting mid sacrum. Small amount of contrast injected for needle tip placement. Correlate with intraoperative findings/report.
--- NOTE | 2021-04-15 11:50 | XRAY ---
23 seconds fluoroscopy time in surgery for caudal VINCENT.
[2021-04-15] MEDS ORDERED: Lactated Ringers 1,000 ML IV ONE (15:20)
== END 2021-04-15 11:40 | disposition home or self-care (01) ==
LOC: SDC-PAIN 09:54
PROVIDERS: ATTEND Psychiatry & Neurology Pain Medicine
DX: M54.16 Radiculopathy, lumbar region (principal); E11.9 Type 2 diabetes mellitus without complications; Z79.899 Other long term (current) drug therapy
CPT/HCPCS: 62323; 72100; 77003; 82947; J1030; J2704; Q9966

== ENCOUNTER 2022-03-31 07:50 | Day surgery (SDC) | payer MEDICARE ==
[2022-03-31] MEDS ORDERED: Marcaine Mpf 0.5% Vial 30 Ml IJ ONE (07:51)
[2022-03-31] MEDS ORDERED: DIPRIVAN 200 MG/20 ML IV ONE (09:12)
--- NOTE | 2022-03-31 10:39 | XRAY ---
Indication: Bilateral L4-S1 MBB. Intraoperative fluoroscopy provided for 15 seconds. Single digital spot image submitted for interpretation demonstrates posterior needle tips projecting over the expected left and right L4-S1 nerve roots. Correlate with intraoperative findings/report.
--- NOTE | 2022-03-31 10:56 | XRAY ---
15 seconds fluoroscopy time in surgery for bilateral L4-S1 MBB.
[2022-03-31] MEDS ORDERED: Lactated Ringers 1,000 ML IV ONE (12:38)
== END 2022-03-31 09:40 | disposition home or self-care (01) ==
LOC: SDC-PAIN 07:50
PROVIDERS: ATTEND Psychiatry & Neurology Pain Medicine
DX: M47.816 Spondylosis without myelopathy or radiculopathy, lumbar region (principal); E11.9 Type 2 diabetes mellitus without complications; Z79.899 Other long term (current) drug therapy
CPT/HCPCS: 64493; 64494; 72020; 77002; 82947; J2704

== ENCOUNTER 2022-05-05 08:57 | Day surgery (SDC) | payer MEDICARE ==
[2022-05-05] MEDS ORDERED: Depo-Medrol 40 MG/ML IM ONE (08:58)
[2022-05-05] MEDS ORDERED: Xylocaine 1% Vial 30 ML PF IJ ONE (08:58)
[2022-05-05] MEDS ORDERED: BUPIVACAINE 0.5% VIAL IJ ONE (08:58)
[2022-05-05] MEDS ORDERED: DIPRIVAN 200 MG/20 ML IV ONE (10:32)
[2022-05-05] MEDS ORDERED: Lactated Ringers 1,000 ML IV ONE (13:06)
--- NOTE | 2022-05-05 13:34 | XRAY ---
Indication: Left L4-S1 RFA. Intraoperative fluoroscopy provided for 24 seconds. 5 digital spot images submitted for interpretation demonstrate posterior needle tips projecting over the expected left L4-S1 nerve roots. Correlate with intraoperative findings/report.
--- NOTE | 2022-05-05 13:34 | XRAY ---
24 seconds of fluoroscopy was used in surgery for a left L4-S1 RFA.
== END 2022-05-05 11:05 | disposition home or self-care (01) ==
LOC: SDC-PAIN 08:57
PROVIDERS: ATTEND Psychiatry & Neurology Pain Medicine
DX: M47.816 Spondylosis without myelopathy or radiculopathy, lumbar region (principal); E11.9 Type 2 diabetes mellitus without complications; Z79.899 Other long term (current) drug therapy
CPT/HCPCS: 64635; 64636; 72100; 77002; 82947; J1030; J2001; J2704

== ENCOUNTER 2022-05-12 08:31 | Day surgery (SDC) | payer MEDICARE ==
[2022-05-12] MEDS ORDERED: Xylocaine 1% Vial 30 ML PF IJ ONE (08:32)
[2022-05-12] MEDS ORDERED: Depo-Medrol 40 MG/ML IM ONE (08:32)
[2022-05-12] MEDS ORDERED: BUPIVACAINE 0.5% VIAL IJ ONE (08:32)
[2022-05-12] MEDS ORDERED: DIPRIVAN 200 MG/20 ML IV ONE (09:34)
[2022-05-12] MEDS ORDERED: Lactated Ringers 1,000 ML IV ONE (09:45)
--- NOTE | 2022-05-12 11:05 | XRAY ---
Indication: Right L4-S1 RFA. Intraoperative fluoroscopy provided for 47 seconds. 4 digital spot image submitted for interpretation demonstrates posterior needle tips projecting over the expected right L4-S1 nerve roots. Correlate with intraoperative findings/report.
--- NOTE | 2022-05-12 11:34 | XRAY ---
47 seconds fluoroscopy time in surgery for right L4-S1 RFA.
== END 2022-05-12 10:04 | disposition home or self-care (01) ==
LOC: SDC-PAIN 08:31
PROVIDERS: ATTEND Psychiatry & Neurology Pain Medicine
DX: M47.816 Spondylosis without myelopathy or radiculopathy, lumbar region (principal); E11.9 Type 2 diabetes mellitus without complications; Z79.899 Other long term (current) drug therapy
CPT/HCPCS: 64635; 64636; 72100; 77002; 82947; J1030; J2001; J2704

== ENCOUNTER 2022-06-23 10:37 | Inpatient (IN) | payer MEDICARE ==
[2022-06-23] MEDS ORDERED: Zithromax 500 MG/ 250 ML NaCl Premix 500 MG/250 ML IVPB IV STA (10:45)
[2022-06-23] MEDS ORDERED: ROCEPHIN 1 Gm-D5w 50 ml Bag** 1 G/50 ML IVPB IV STA (10:45)
[2022-06-23] MEDS ORDERED: solu-MEDROL 125 MG, Sterile H2O 10 ml 2 ML IV ONE ×2 (10:48)
[2022-06-23] MEDS ORDERED: DUONEB 0.5-3 MG/3 ml Neb IH ONE ×2 (10:49→11:10)
[2022-06-23] MEDS ORDERED: Zithromax 500 MG/ 250 ML NaCl Premix 500 MG/250 ML IVPB IV ONE (10:57)
[2022-06-23] MEDS ORDERED: Sterile H2O 10 ml IJ ONE (10:57)
[2022-06-23] MEDS ORDERED: solu-MEDROL ONE (10:57)
[2022-06-23] MEDS ORDERED: ROCEPHIN 1 Gm-D5w 50 ml Bag** 1 G/50 ML IVPB IV ONE (10:57)
--- NOTE | 2022-06-23 11:06 | XRAY ---
Indication: Cough and short of breath. Comparison: March 29, 2022. Portable chest less inflated with new diffuse right lung groundglass airspace disease. Remaining heart and left lung unremarkable. Bony thorax intact again with osteopenia and degenerative changes.
[2022-06-23 11:07] LABS: Absolute Neutrophil Ct (ANC) 17.09 x10^3/uL (1.4-6.9); Basophil (Absolute #) 0.03 x10^3/uL (0-0.4); Eosinophil % 1.3 % (0.00-5.0); Eosinophil (Absolute #) 0.24 x10^3/uL (0-0.5); Hematocrit 36.9 % (42-50); Hemoglobin 11.4 g/dL (12.5-18.0); Lymphocytes % 5.2 % (24.0-44.0); Mean Cell Volume 86.4 fL (78-100); Mean Corpuscular Hemoglobin 26.7 pg (26-32); Mean Corpuscular Hgb Concent. 30.9 g/dL (32-36); Mean Platelet Volume 11.1 fL (7.5-11.0); Monocyte (Absolute #) 0.72 x10^3/uL (0.0-1.3); Monocytes % 3.8 % (0.0-12.0); Neutrophil % 88.9 % (36.0-66.0); Platelet Count 282 x10^3/uL (150-450); Red Blood Count 4.27 x10^6/uL (4.1-5.6); Red Cell Distribution Width 15.9 % (11.5-14.0); White Blood Count 19.2 x10^3/uL (4.0-10.5)
[2022-06-23 11:31] LABS: ALBUMIN 4.2 g/dL (3.5-5.0); ANION GAP 11.5 MEQ/L (5-15); BILIRUBIN,TOTAL 0.5 mg/dL (0.2-1.3); Calcium 8.9 mg/dL (8.4-10.2); Creatinine 1 1.83 mg/dL (0.66-1.25); EST GLOMERULAR FILTRATION RATE 40.1 ML/MIN; MAGNESIUM 1.6 mg/dL (1.6-2.3); NT PRO BNP 82.6 pg/mL (0-900); Potassium 3.7 mmol/L (3.5-5.1); Total Protein 7.5 g/dL (6.3-8.2)
[2022-06-23 11:56] LABS: INFLUENZA A NEGATIVE (NEGATIVE); INFLUENZA B NEGATIVE (NEGATIVE); RESPIRATORY SYNCTIAL VIRUS NEGATIVE (Negative); SARS-CoV-2 Xpert Express NEGATIVE (NEGATIVE)
--- NOTE | 2022-06-23 11:56 | XRAY ---
Indication: Left facial injury following fall 2 days ago. Multiple contiguous images obtained through the facial bones. Sagittal and coronal reformatted images obtained. Comparison: None Study is slightly degraded by motion artifact throughout. Patient is edentulous. Axial images grossly negative for acute fracture, suspicious bony lesions, or radiopaque foreign body. Orbits including roof, louise, and floors intact. Paranasal sinuses and nasal passages are clear. Incidental moderate nasal septal deviation to the left. TMJ bilaterally symmetric. Visualized cervical spine intact. Mild bilateral carotid calcifications. Visualized noncontrasted soft tissues including orbits and base of brain unremarkable. Impression: Motion artifact. Nasal septal deviation and mild bilateral carotid calcifications. Remaining CT facial bones grossly negative.
--- NOTE | 2022-06-23 11:58 | XRAY ---
Indication: Pain following fall. Comparison: None 2 view left forearm demonstrates osteopenia, tiny distal radius bone island, mild 1st metacarpal multangular scaphoid degenerative changes, and minimal ulnar vascular calcifications. No other bony, articular, or soft tissue abnormalities.
[2022-06-23] MEDS ORDERED: Lasix 40 MG/4 ML IV ONE (12:28)
[2022-06-23] MEDS ORDERED: Lasix 40 MG/4 ML ONE (12:29)
--- NOTE | 2022-06-23 12:33 | ERPHSYRPT ---
- History of Present Illness Time Seen by Provider: 06/23/22 10:45 Source: patient, family Exam Limitations: no limitations Patient Subjective Stated Complaint: pt here for incresed sob since this morning, pt was seen last week in an er and given steriods which he think he lped, low grade fever, productive cough Triage Nursing Assessment: pt alert, resp labored ,grunting, face mask applied, diminished bs heard with wheezes, congested sounding cough, edema to lower legs, Physician History: Patient is a 61-year-old male who has been sick for 1 week he comes in with a complaint of increasing shortness of breath he was seen in [facility] was given steroids and was found to be negative for COVID or flu. His sputum production has increased is now green or yellow in appearance and he has had fever on and off. Timing/Duration: week(s) (1) Cough Quality/Degree: severe, productive cough, sputum (Green and yellow) Possible Cause: occasional episodes Associated Symptoms: fever, cough Allergies/Adverse Reactions: No Known Drug Allergies Allergy (Verified 06/23/22 10:51) Home Medications: Amlodipine Besylate 5 mg [Norvasc 5 mg] 10 mg PO DAILY 05/22/19 [History] Citalopram Hydrobromide 20 mg* [ceLEXa 20 MG] 40 mg PO DAILY 05/22/19 [History] Gabapentin 300 mg PO BID 05/22/19 [History] Oxycodone / APAP 10/325 mg [Oxycodone-Acetaminophen 10-325] 1 tab PO Q4HPRN PRN 05/22/19 [History] Simvastatin 40 mg PO DAILY 05/22/19 [History] Tamsulosin HCl 0.4 mg [Flomax 0.4 MG] 0.4 mg PO DAILY 05/22/19 [History] Amitriptyline HCl 25 mg [Amitriptyline 25 mg Tablet] 25 mg PO DAILY 06/23/22 [History] Benazepril HCl 40 mg DAILY 06/23/22 [History] Budesonide/Glycopyr/Formoterol [Breztri Aerosphere Inhaler] 1 puff DAILY 06/23/22 [History] Diclofenac Sodium 1 ea DAILY 06/23/22 [History] Glyburide,Micronized [Glyburide Micronized] 1 ea DAILY 06/23/22 [History] Isosorbide Mononitrate 30 mg [Imdur 30 MG] 30 mg PO BID 06/23/22 [History] Methocarbamol [Robaxin] 500 mg PO DAILY 06/23/22 [History] Hx Tetanus, Diphtheria Vaccination/Date Given: No Hx Influenza Vaccination/Date Given: Yes Hx Pneumococcal Vaccination/Date Given: Yes Immunizations Up to Date: Yes Travel Risk - International Travel Have you traveled outside of the country in past 3 weeks: No - Coronavirus Screening Are you exhibiting any of the following symptoms?: Yes Symptoms: Fever, Cough: New Onset, Shortness of Breath - Vaccine Status Have you recieved a Covid-19 vaccination: Yes [employer] 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: [employer] - Vaccination Dates Date of 2cond Vaccination (if applicable): 2020 - Review of Systems Constitutional: Fever, Chills Eyes: No Symptoms Ears, Nose, & Throat: No Symptoms Respiratory: Cough, Dyspnea Cardiac: No Chest Pain, No Edema, No Syncope Abdominal/Gastrointestinal: No Abdominal Pain, No Nausea, No Vomiting, No Diarrhea Genitourinary Symptoms: No Dysuria Musculoskeletal: No Back Pain, No Neck Pain Skin: No Rash Neurological: No Dizziness, No Focal Weakness, No Sensory Changes Psychological: No Symptoms Endocrine: No Symptoms All Other Systems: Reviewed and Negative - Past Medical History Pertinent Past Medical History: Yes Neurological History: No Pertinent History ENT History: No Pertinent History Cardiac History: High Cholesterol, Hypertension Respiratory History: COPD, Sleep Apnea Endocrine Medical History: Adrenal Insufficiency, Diabetes Type II Musculoskeletal History: Osteoarthritis GI Medical History: Ulcer History: No Pertinent History Psycho-Social History: Depression Male Reproductive Disorders: No Pertinent History Other Medical History: minor heart blockage, no stints. Back surgery. - Past Surgical History Past Surgical History: Yes Neuro Surgical History: No Pertinent History Cardiac: Cardiac Catheterization Respiratory: No Pertinent History Gastrointestinal: Cholecystectomy Genitourinary: No Pertinent History Musculoskeletal: Joint Replacement, Orthopedic Surgery Male Surgical History: No Pertinent History Other Surgical History: gastric bypass. rt knee arthroscopy and replacement, ES I - Social History Smoking Status: Never smoker Exposure to second hand smoke: No Drug Use: none Patient Lives Alone: No - Nursing Vital Signs Nursing Vital Signs: Initial Vital Signs Temperature 97.9 F 06/23/22 10:38 Pulse Rate 100 H 06/23/22 10:38 Respiratory Rate 32 H 06/23/22 10:38 O2 Sat by Pulse Oximetry 88 L 06/23/22 10:38 Pain Scale Pain Intensity 4 - Physical Exam General Appearance: moderate distress Eye Exam: PERRL/EOMI, eyes nml inspection Ears, Nose, Throat Exam: normal ENT inspection, TMs normal, pharynx normal, moist mucous membranes Neck Exam: normal inspection, non-tender, supple, full range of motion Respiratory Exam: airway intact, diminished breath sounds, crackles/rales, rhonchi, wheezing Gastrointestinal/Abdomen Exam: soft, normal bowel sounds Back Exam: normal inspection, normal range of motion Extremity Exam: normal inspection, normal range of motion Neurologic Exam: alert, oriented x 3 SpO2 Interpretation: normal SpO2: 98 O2 Delivery: Room Air - Course Nursing assessment & vital signs reviewed: Yes EKG Interpreted by Me: RATE (100), Sinus Tach, NORMAL AXIS, Right [place] Deviation, NORMAL INTERVALS, Non-specific ST Changes - Radiology Exams Chest X-ray Interpretation: Reviewed by me Ordered Tests: Active Orders 24 hr Category Date Time Status EKG-ER Only STAT Care 06/23/22 10:45 Active IV Insertion STAT Care 06/23/22 10:45 Active Oxygen-ED Only Nasal Cannula 3 lpm Care 06/23/22 10:45 Active CHEST 1 VIEW (PORTABLE) Stat Exams 06/23/22 10:46 Completed FACIAL BONES WO CONTRAST [CT] Routine Exams 06/23/22 11:24 Completed FOREARM Stat Exams 06/23/22 11:08 Completed CBC W DIFF Stat Lab 06/23/22 10:45 Completed CMP Stat Lab 06/23/22 11:00 Completed D-DIMER QUANTITATIVE Stat Lab 06/23/22 11:00 Completed Lactic Acid Stat Lab 06/23/22 11:10 Completed MAGNESIUM Stat Lab 06/23/22 11:00 Completed NT PRO BNP Stat Lab 06/23/22 11:00 Completed PROCALCITONIN Stat Lab 06/23/22 11:00 Completed TROPONIN Q4H Lab 06/23/22 11:00 Completed TROPONIN Q4H Lab 06/23/22 15:00 Ordered TROPONIN Q4H Lab 06/23/22 19:00 Ordered Medication Summary Discontinued Medications Generic Name Dose Route Start Last Admin Trade Name Freq PRN Reason Stop Dose Admin Albuterol/Ipratropium 3 ml 06/23/22 10:49 06/23/22 11:13 Ipratropium/Albuterol Sulfate 3 Ml Ampul.Neb IH 06/23/22 10:50 3 ml STAT ONE Administration Albuterol/Ipratropium Confirm 06/23/22 11:10 Ipratropium/Albuterol Sulfate 3 Ml Ampul.Neb Administered 06/23/22 11:11 Dose 3 ml IH .STK-MED ONE Methylprednisolone Sodium 0 mg 06/23/22 10:48 06/23/22 10:59 Succinate 125 mg/ Sterile IV 06/23/22 10:49 125 mg Water 2 ml STAT ONE Administration Azithromycin 500 mg in 250 mls @ 250 mls/hr 06/23/22 10:45 06/23/22 10:58 Zithromax 500 Mg/ 250 Ml Nacl Premix IV 06/23/22 11:44 250 mls/hr STAT STA 250 mls/hr Administration Ceftriaxone Sodium/Dextrose 1 g in 50 mls @ 100 mls/hr 06/23/22 10:45 11:44 Rocephin 1 Gm-D5w 50 Ml Bag IV 06/23/22 11:14 Infused STAT STA Infusion Azithromycin Confirm 06/23/22 10:57 Zithromax 500 Mg/ 250 Ml Nacl Premix Administered 06/23/22 10:58 Dose 500 mg in 250 mls @ ud IV .STK-MED ONE Ceftriaxone Sodium/Dextrose Confirm 06/23/22 10:57 Rocephin 1 Gm-D5w 50 Ml Bag Administered 06/23/22 10:58 Dose 1 g in 50 mls @ ud IV .STK-MED ONE Methylprednisolone Sodium Succinate Confirm 06/23/22 10:57 Methylprednis Sod Succ 125 Mg/2 Ml Vial Administered 06/23/22 10:58 Dose 125 mg .ROUTE .STK-MED ONE Sterile Water Confirm 06/23/22 10:57 Water For Injection,Sterile 10 Ml Vial Administered 06/23/22 10:58 Dose 10 ml IJ .STK-MED ONE Lab/Rad Data: Laboratory Result Diagrams 06/23/22 10:45 06/23/22 11:00 Laboratory Results 06/23/22 06/23/22 06/23/22 Range/Units 11:10 11:02 11:00 WBC (4.0-10.5) x10^3/uL RBC (4.1-5.6) x10^6/uL Hgb (12.5-18.0) g/dL Hct (42-50) % MCV (78-100) fL MCH (26-32) pg MCHC (32-36) g/dL RDW (11.5-14.0) % Plt Count (150-450) x10^3/uL MPV (7.5-11.0) fL Gran % (36.0-66.0) % Immature Gran % (Auto) (0.00-0.4) % Nucleat RBC Rel Count (0.00-0.1) % Eos # (Auto) (0-0.5) x10^3/uL Immature Gran # (Auto) (0.00-0.03) x10^3u/L Absolute Lymphs (auto) (1.0-4.6) x10^3/uL Absolute Monos (auto) (0.0-1.3) x10^3/uL Absolute Nucleated RBC (0.00-0.01) x10^3u/L Lymphocytes % (24.0-44.0) % Monocytes % (0.0-12.0) % Eosinophils % (0.00-5.0) % Basophils % (0.0-0.4) % Absolute Granulocytes (1.4-6.9) x10^3/uL Basophils # (0-0.4) x10^3/uL D-Dimer (0.0-0.50) mg/L Sodium (137-145) mmol/L Potassium (3.5-5.1) mmol/L Chloride (98-107) mmol/L Carbon Dioxide (22-30) mmol/L Anion Gap (5-15) MEQ/L BUN (9-20) mg/dL Creatinine (0.66-1.25) mg/dL Estimated GFR ML/MIN Glucose (74-106) mg/dL Lactic Acid 1.9 (0.4-2.0) Calcium (8.4-10.2) mg/dL Magnesium (1.6-2.3) mg/dL Total Bilirubin (0.2-1.3) mg/dL AST (17-59) U/L ALT (0-50) U/L Alkaline Phosphatase (38-126) U/L Troponin I (0.000-0.034) ng/mL NT-Pro-B Natriuret Pep (0-900) pg/mL Serum Total Protein (6.3-8.2) g/dL Albumin (3.5-5.0) g/dL Procalcitonin 1.010 H (0.030-0.080) ng/mL Influenza Type A Ag NEGATIVE (NEGATIVE) Influenza Type B Ag NEGATIVE (NEGATIVE) RSV (PCR) NEGATIVE (Negative) SARS-CoV-2 (PCR) NEGATIVE (NEGATIVE) 06/23/22 06/23/22 06/23/22 Range/Units 11:00 11:00 11:00 WBC (4.0-10.5) x10^3/uL RBC (4.1-5.6) x10^6/uL Hgb (12.5-18.0) g/dL Hct (42-50) % MCV (78-100) fL MCH (26-32) pg MCHC (32-36) g/dL RDW (11.5-14.0) % Plt Count (150-450) x10^3/uL MPV (7.5-11.0) fL Gran % (36.0-66.0) % Immature Gran % (Auto) (0.00-0.4) % Nucleat RBC Rel Count (0.00-0.1) % Eos # (Auto) (0-0.5) x10^3/uL Immature Gran # (Auto) (0.00-0.03) x10^3u/L Absolute Lymphs (auto) (1.0-4.6) x10^3/uL Absolute Monos (auto) (0.0-1.3) x10^3/uL Absolute Nucleated RBC (0.00-0.01) x10^3u/L Lymphocytes % (24.0-44.0) % Monocytes % (0.0-12.0) % Eosinophils % (0.00-5.0) % Basophils % (0.0-0.4) % Absolute Granulocytes (1.4-6.9) x10^3/uL Basophils # (0-0.4) x10^3/uL D-Dimer 0.65 H* (0.0-0.50) mg/L Sodium 134 L (137-145) mmol/L Potassium 3.7 (3.5-5.1) mmol/L Chloride 102 (98-107) mmol/L Carbon Dioxide 25 (22-30) mmol/L Anion Gap 11.5 (5-15) MEQ/L BUN 30 H (9-20) mg/dL Creatinine 1.83 H (0.66-1.25) mg/dL Estimated GFR 40.1 ML/MIN Glucose 210 H (74-106) mg/dL Lactic Acid (0.4-2.0) Calcium 8.9 (8.4-10.2) mg/dL Magnesium 1.6 (1.6-2.3) mg/dL Total Bilirubin 0.50 (0.2-1.3) mg/dL AST 31 (17-59) U/L ALT 38 (0-50) U/L Alkaline Phosphatase 95 (38-126) U/L Troponin I < 0.012 (0.000-0.034) ng/mL NT-Pro-B Natriuret Pep 82.6 (0-900) pg/mL Serum Total Protein 7.5 (6.3-8.2) g/dL Albumin 4.2 (3.5-5.0) g/dL Procalcitonin (0.030-0.080) ng/mL Influenza Type A Ag (NEGATIVE) Influenza Type B Ag (NEGATIVE) RSV (PCR) (Negative) SARS-CoV-2 (PCR) (NEGATIVE) 06/23/22 Range/Units 10:45 WBC 19.2 H (4.0-10.5) x10^3/uL RBC 4.27 (4.1-5.6) x10^6/uL Hgb 11.4 L (12.5-18.0) g/dL Hct 36.9 L (42-50) % MCV 86.4 (78-100) fL MCH 26.7 (26-32) pg MCHC 30.9 L (32-36) g/dL RDW 15.9 H (11.5-14.0) % Plt Count 282 (150-450) x10^3/uL MPV 11.1 H (7.5-11.0) fL Gran % 88.9 H (36.0-66.0) % Immature Gran % (Auto) 0.6 H (0.00-0.4) % Nucleat RBC Rel Count 0.0 (0.00-0.1) % Eos # (Auto) 0.24 (0-0.5) x10^3/uL Immature Gran # (Auto) 0.11 H (0.00-0.03) x10^3u/L Absolute Lymphs (auto) 1.00 (1.0-4.6) x10^3/uL Absolute Monos (auto) 0.72 (0.0-1.3) x10^3/uL Absolute Nucleated RBC 0.00 (0.00-0.01) x10^3u/L Lymphocytes % 5.2 L (24.0-44.0) % Monocytes % 3.8 (0.0-12.0) % Eosinophils % 1.3 (0.00-5.0) % Basophils % 0.2 (0.0-0.4) % Absolute Granulocytes 17.09 H (1.4-6.9) x10^3/uL Basophils # 0.03 (0-0.4) x10^3/uL D-Dimer (0.0-0.50) mg/L Sodium (137-145) mmol/L Potassium (3.5-5.1) mmol/L Chloride (98-107) mmol/L Carbon Dioxide (22-30) mmol/L Anion Gap (5-15) MEQ/L BUN (9-20) mg/dL Creatinine (0.66-1.25) mg/dL Estimated GFR ML/MIN Glucose (74-106) mg/dL Lactic Acid (0.4-2.0) Calcium (8.4-10.2) mg/dL Magnesium (1.6-2.3) mg/dL Total Bilirubin (0.2-1.3) mg/dL AST (17-59) U/L ALT (0-50) U/L Alkaline Phosphatase (38-126) U/L Troponin I (0.000-0.034) ng/mL NT-Pro-B Natriuret Pep (0-900) pg/mL Serum Total Protein (6.3-8.2) g/dL Albumin (3.5-5.0) g/dL Procalcitonin (0.030-0.080) ng/mL Influenza Type A Ag (NEGATIVE) Influenza Type B Ag (NEGATIVE) RSV (PCR) (Negative) SARS-CoV-2 (PCR) (NEGATIVE) - Progress Progress: unchanged Air Movement: fair Blood Culture(s) Obtained: Yes Antibiotics given: Yes Discussed with DrSuzi: Damon Will see patient in: hospital (observation) - Departure Departure Disposition: Observation Clinical Impression: Pneumonia Condition: Fair Critical Care Time: No Referrals: LAWANDA ELMORE [Primary Care Provider] - Follow up/PCP as directed Instructions: Pneumonia, Adult (DC)
[2022-06-23] MEDS ORDERED: Sodium Chloride 0.9% 1000 ML 0 ML ONE (13:09)
[2022-06-23] MEDS: solu-MEDROL 60 MG, Sterile H2O 10 ml 2 ML IV SCH ×4 (16:56→23:07)
[2022-06-23] MEDS: HUMALOG SQ PRN ×2 (16:57→22:15)
[2022-06-23] MEDS ORDERED: OXYCODONE-ACETAMINOPHEN 10-325 PO SCH (18:00)
[2022-06-23] MEDS: OXYCODONE-ACETAMINOPHEN 10-325 PO PRN (18:33)
[2022-06-23] MEDS ORDERED: Zofran 4 MG/2 ML VIAL IV PRN (19:10)
[2022-06-23] MEDS ORDERED: TYLENOL 325 MG PO PRN (19:10)
--- NOTE | 2022-06-23 19:14 | PCM.HP ---
History of Present Illness - Chief Complaint Chief Complaint: pneumonia History of Present Illness: is a 61 year old male patient of Dr Hurtado, he has had a cough and been progressively more ill for 2 weeks. he was apparently seen in [facility] at [facility] and given steroids and keflex for bronchitis, he worsened. He has a cough productive of green sputum, he is more short of breath today. he was hypoxic with oxygen sat in the 70's this morning so came to ER via family. He has been confused today per family, he fell on his steps outside his home and hit his head hard 2 days ago per patient. - Review of Systems Constitutional: No Fever, No Chills Respiratory: Cough, Short Of Breath Cardiac: No Chest Pain, No Edema, No Syncope Skin: No Rash All Other Systems: Reviewed and Negative Medications & Allergies Home Medications: Home Medication List Amlodipine Besylate 5 mg [Norvasc 5 mg] 10 mg PO HS 05/22/19 [History Confirmed 06/23/22] Citalopram Hydrobromide 20 mg* [ceLEXa 20 MG] 40 mg PO HS 05/22/19 [History Confirmed 06/23/22] Gabapentin 600 mg PO BID 05/22/19 [History Confirmed 06/23/22] Oxycodone / APAP 10/325 mg [Oxycodone-Acetaminophen 10-325] 1 tab PO Q6H PRN 05/22/19 [History Confirmed 06/23/22] Simvastatin 40 mg PO HS 05/22/19 [History Confirmed 06/23/22] Tamsulosin HCl 0.4 mg [Flomax 0.4 MG] 0.4 mg PO DAILY 05/22/19 [History Confirmed 06/23/22] Insulin Lispro [Humalog Kwikpen U-100] 100 unit SQ ACHS #1 box 05/24/19 [Rx Confirmed 06/23/22] Amitriptyline HCl 25 mg [Amitriptyline 25 mg Tablet] 25 mg PO BID 06/23/22 [History Confirmed 06/23/22] Benazepril HCl 40 mg PO HS 06/23/22 [History Confirmed 06/23/22] Budesonide/Glycopyr/Formoterol [Breztri Aerosphere Inhaler] 1 puff IH DAILY 06/23/22 [History Confirmed 06/23/22] Diclofenac Sodium 1 ea TOP DAILY 06/23/22 [History Confirmed 06/23/22] Methocarbamol [Robaxin] 500 mg PO HS 06/23/22 [History Confirmed 06/23/22] Allergies/Adverse Reactions: Allergies Allergy/AdvReac Type Severity Reaction Status Date / Time No Known Drug Allergies Allergy Verified 06/23/22 10:51 - Past Medical History Past Medical History: Yes Neurological History: No Pertinent History ENT History: No Pertinent History Cardiac History: High Cholesterol, Hypertension Respiratory History: COPD, Sleep Apnea Endocrine Medical History: Adrenal Insufficiency, Diabetes Type II Musculoskelatal History: Osteoarthritis GI Medical History: Ulcer History: No Pertinent History Pyscho-Social History: Depression Male Reproductive Disorders: No Pertinent History Comment: minor heart blockage, no stints. Back surgery. - Past Surgical History Past Surgical History: Yes Neuro Surgical History: No Pertinent History Cardiac History: Cardiac Catheterization Respiratory Surgery: No Pertinent History GI Surgical History: Cholecystectomy Genitourinary Surgical Hx: No Pertinent History Musculskeletal Surgical Hx: Joint Replacement, Orthopedic Surgery Male Surgical History: No Pertinent History Other Surgical History: gastric bypass. rt knee arthroscopy and replacement, [facility]ENT - Social History Smoking Status: Never smoker Exposure to second hand smoke: No Alcohol: None Drug Use: none - Physical Exam Vital Signs: Vital Signs - 24 hr Temp Pulse Resp BP Pulse Ox 06/23/22 15:48 97.9 F 90 16 124/57 94 L 06/23/22 13:04 97.9 F 93 H 18 134/85 94 L 06/23/22 12:49 93 H 16 108/66 92 L 06/23/22 12:36 92 H 18 94 L 06/23/22 12:32 98 06/23/22 12:01 102 H 06/23/22 11:58 101 H 20 112/70 98 06/23/22 11:17 101 H 18 94 L 06/23/22 10:50 16 94 L 06/23/22 10:38 97.9 F 100 H 32 H 88 L General Appearance: no apparent distress, alert Neurologic Exam: alert, cooperative Respiratory Exam: crackles/rales Cardiovascular Exam: regular rate/rhythm, normal heart sounds, normal peripheral pulses Gastrointestinal/Abdomen Exam: soft, normal bowel sounds, No tenderness, No mass Extremity Exam: normal inspection, normal range of motion, pelvis stable Skin Exam: normal color, warm, dry, No rash Results - Labs Lab/Micro Results: Lab Results-Last 24 Hours 06/23/22 06/23/22 06/23/22 Range/Units 10:45 11:00 11:00 WBC 19.2 H (4.0-10.5) x10^3/uL RBC 4.27 (4.1-5.6) x10^6/uL Hgb 11.4 L (12.5-18.0) g/dL Hct 36.9 L (42-50) % MCV 86.4 (78-100) fL MCH 26.7 (26-32) pg MCHC 30.9 L (32-36) g/dL RDW 15.9 H (11.5-14.0) % Plt Count 282 (150-450) x10^3/uL MPV 11.1 H (7.5-11.0) fL Gran % 88.9 H (36.0-66.0) % Immature Gran % (Auto) 0.6 H (0.00-0.4) % Nucleat RBC Rel Count 0.0 (0.00-0.1) % Eos # (Auto) 0.24 (0-0.5) x10^3/uL Immature Gran # (Auto) 0.11 H (0.00-0.03) x10^3u/L Absolute Lymphs (auto) 1.00 (1.0-4.6) x10^3/uL Absolute Monos (auto) 0.72 (0.0-1.3) x10^3/uL Absolute Nucleated RBC 0.00 (0.00-0.01) x10^3u/L Lymphocytes % 5.2 L (24.0-44.0) % Monocytes % 3.8 (0.0-12.0) % Eosinophils % 1.3 (0.00-5.0) % Basophils % 0.2 (0.0-0.4) % Absolute Granulocytes 17.09 H (1.4-6.9) x10^3/uL Basophils # 0.03 (0-0.4) x10^3/uL D-Dimer 0.65 H* (0.0-0.50) mg/L Sodium 134 L (137-145) mmol/L Potassium 3.7 (3.5-5.1) mmol/L Chloride 102 (98-107) mmol/L Carbon Dioxide 25 (22-30) mmol/L Anion Gap 11.5 (5-15) MEQ/L BUN 30 H (9-20) mg/dL Creatinine 1.83 H (0.66-1.25) mg/dL Estimated GFR 40.1 ML/MIN Glucose 210 H (74-106) mg/dL POC Glucometer (74 to 106) mg/dL Hemoglobin A1c (4.5-6.0) % Lactic Acid (0.4-2.0) Calcium 8.9 (8.4-10.2) mg/dL Magnesium 1.6 (1.6-2.3) mg/dL Total Bilirubin 0.50 (0.2-1.3) mg/dL AST 31 (17-59) U/L ALT 38 (0-50) U/L Alkaline Phosphatase 95 (38-126) U/L Troponin I (0.000-0.034) ng/mL NT-Pro-B Natriuret Pep 82.6 (0-900) pg/mL Serum Total Protein 7.5 (6.3-8.2) g/dL Albumin 4.2 (3.5-5.0) g/dL Procalcitonin (0.030-0.080) ng/mL Influenza Type A Ag (NEGATIVE) Influenza Type B Ag (NEGATIVE) RSV (PCR) (Negative) SARS-CoV-2 (PCR) (NEGATIVE) 06/23/22 06/23/22 06/23/22 Range/Units 11:00 11:00 11:00 WBC (4.0-10.5) x10^3/uL RBC (4.1-5.6) x10^6/uL Hgb (12.5-18.0) g/dL Hct (42-50) % MCV (78-100) fL MCH (26-32) pg MCHC (32-36) g/dL RDW (11.5-14.0) % Plt Count (150-450) x10^3/uL MPV (7.5-11.0) fL Gran % (36.0-66.0) % Immature Gran % (Auto) (0.00-0.4) % Nucleat RBC Rel Count (0.00-0.1) % Eos # (Auto) (0-0.5) x10^3/uL Immature Gran # (Auto) (0.00-0.03) x10^3u/L Absolute Lymphs (auto) (1.0-4.6) x10^3/uL Absolute Monos (auto) (0.0-1.3) x10^3/uL Absolute Nucleated RBC (0.00-0.01) x10^3u/L Lymphocytes % (24.0-44.0) % Monocytes % (0.0-12.0) % Eosinophils % (0.00-5.0) % Basophils % (0.0-0.4) % Absolute Granulocytes (1.4-6.9) x10^3/uL Basophils # (0-0.4) x10^3/uL D-Dimer (0.0-0.50) mg/L Sodium (137-145) mmol/L Potassium (3.5-5.1) mmol/L Chloride (98-107) mmol/L Carbon Dioxide (22-30) mmol/L Anion Gap (5-15) MEQ/L BUN (9-20) mg/dL Creatinine (0.66-1.25) mg/dL Estimated GFR ML/MIN Glucose (74-106) mg/dL POC Glucometer (74 to 106) mg/dL Hemoglobin A1c 8.22 H (4.5-6.0) % Lactic Acid (0.4-2.0) Calcium (8.4-10.2) mg/dL Magnesium (1.6-2.3) mg/dL Total Bilirubin (0.2-1.3) mg/dL AST (17-59) U/L ALT (0-50) U/L Alkaline Phosphatase (38-126) U/L Troponin I < 0.012 (0.000-0.034) ng/mL NT-Pro-B Natriuret Pep (0-900) pg/mL Serum Total Protein (6.3-8.2) g/dL Albumin (3.5-5.0) g/dL Procalcitonin 1.010 H (0.030-0.080) ng/mL Influenza Type A Ag (NEGATIVE) Influenza Type B Ag (NEGATIVE) RSV (PCR) (Negative) SARS-CoV-2 (PCR) (NEGATIVE) 06/23/22 06/23/22 06/23/22 Range/Units 11:02 11:10 15:18 WBC (4.0-10.5) x10^3/uL RBC (4.1-5.6) x10^6/uL Hgb (12.5-18.0) g/dL Hct (42-50) % MCV (78-100) fL MCH (26-32) pg MCHC (32-36) g/dL RDW (11.5-14.0) % Plt Count (150-450) x10^3/uL MPV (7.5-11.0) fL Gran % (36.0-66.0) % Immature Gran % (Auto) (0.00-0.4) % Nucleat RBC Rel Count (0.00-0.1) % Eos # (Auto) (0-0.5) x10^3/uL Immature Gran # (Auto) (0.00-0.03) x10^3u/L Absolute Lymphs (auto) (1.0-4.6) x10^3/uL Absolute Monos (auto) (0.0-1.3) x10^3/uL Absolute Nucleated RBC (0.00-0.01) x10^3u/L Lymphocytes % (24.0-44.0) % Monocytes % (0.0-12.0) % Eosinophils % (0.00-5.0) % Basophils % (0.0-0.4) % Absolute Granulocytes (1.4-6.9) x10^3/uL Basophils # (0-0.4) x10^3/uL D-Dimer (0.0-0.50) mg/L Sodium (137-145) mmol/L Potassium (3.5-5.1) mmol/L Chloride (98-107) mmol/L Carbon Dioxide (22-30) mmol/L Anion Gap (5-15) MEQ/L BUN (9-20) mg/dL Creatinine (0.66-1.25) mg/dL Estimated GFR ML/MIN Glucose (74-106) mg/dL POC Glucometer (74 to 106) mg/dL Hemoglobin A1c (4.5-6.0) % Lactic Acid 1.9 (0.4-2.0) Calcium (8.4-10.2) mg/dL Magnesium (1.6-2.3) mg/dL Total Bilirubin (0.2-1.3) mg/dL AST (17-59) U/L ALT (0-50) U/L Alkaline Phosphatase (38-126) U/L Troponin I < 0.012 (0.000-0.034) ng/mL NT-Pro-B Natriuret Pep (0-900) pg/mL Serum Total Protein (6.3-8.2) g/dL Albumin (3.5-5.0) g/dL Procalcitonin (0.030-0.080) ng/mL Influenza Type A Ag NEGATIVE (NEGATIVE) Influenza Type B Ag NEGATIVE (NEGATIVE) RSV (PCR) NEGATIVE (Negative) SARS-CoV-2 (PCR) NEGATIVE (NEGATIVE) 06/23/22 Range/Units 16:09 WBC (4.0-10.5) x10^3/uL RBC (4.1-5.6) x10^6/uL Hgb (12.5-18.0) g/dL Hct (42-50) % MCV (78-100) fL MCH (26-32) pg MCHC (32-36) g/dL RDW (11.5-14.0) % Plt Count (150-450) x10^3/uL MPV (7.5-11.0) fL Gran % (36.0-66.0) % Immature Gran % (Auto) (0.00-0.4) % Nucleat RBC Rel Count (0.00-0.1) % Eos # (Auto) (0-0.5) x10^3/uL Immature Gran # (Auto) (0.00-0.03) x10^3u/L Absolute Lymphs (auto) (1.0-4.6) x10^3/uL Absolute Monos (auto) (0.0-1.3) x10^3/uL Absolute Nucleated RBC (0.00-0.01) x10^3u/L Lymphocytes % (24.0-44.0) % Monocytes % (0.0-12.0) % Eosinophils % (0.00-5.0) % Basophils % (0.0-0.4) % Absolute Granulocytes (1.4-6.9) x10^3/uL Basophils # (0-0.4) x10^3/uL D-Dimer (0.0-0.50) mg/L Sodium (137-145) mmol/L Potassium (3.5-5.1) mmol/L Chloride (98-107) mmol/L Carbon Dioxide (22-30) mmol/L Anion Gap (5-15) MEQ/L BUN (9-20) mg/dL Creatinine (0.66-1.25) mg/dL Estimated GFR ML/MIN Glucose (74-106) mg/dL POC Glucometer 311 H (74 to 106) mg/dL Hemoglobin A1c (4.5-6.0) % Lactic Acid (0.4-2.0) Calcium (8.4-10.2) mg/dL Magnesium (1.6-2.3) mg/dL Total Bilirubin (0.2-1.3) mg/dL AST (17-59) U/L ALT (0-50) U/L Alkaline Phosphatase (38-126) U/L Troponin I (0.000-0.034) ng/mL NT-Pro-B Natriuret Pep (0-900) pg/mL Serum Total Protein (6.3-8.2) g/dL Albumin (3.5-5.0) g/dL Procalcitonin (0.030-0.080) ng/mL Influenza Type A Ag (NEGATIVE) Influenza Type B Ag (NEGATIVE) RSV (PCR) (Negative) SARS-CoV-2 (PCR) (NEGATIVE) Accuchecks Date 06/23/22 Time 16:11 - Radiology Impressions Radiology Exams & Impressions: Radiology Procedures Category Date Time Status CHEST 1 VIEW (PORTABLE) Stat Exams 06/23/22 10:46 Completed FACIAL BONES WO CONTRAST [CT] Routine Exams 06/23/22 11:24 Completed FOREARM Stat Exams 06/23/22 11:08 Completed HEAD WITHOUT CONTRAST [CT] Urgent Exams 06/23/22 19:09 Ordered - Other Procedures and Tests Respiratory Therapy 06/23/22 12:35 Oxygen Nasal Cannula 3 lpm Assessment/Plan (1) Pneumonia Current Visit: Yes Status: Acute Assessment & Plan: rocephin/zithromax, supplemental oxygen and nebs are ordered. Code(s): J18.9 - PNEUMONIA, UNSPECIFIED ORGANISM (2) COPD (chronic obstructive pulmonary disease) Current Visit: Yes Status: Acute Assessment & Plan: no wheezing present currently, will monitor (3) Chronic kidney disease Current Visit: Yes Status: Acute Code(s): N18.9 - CHRONIC KIDNEY DISEASE, UNSPECIFIED (4) Altered mental status Current Visit: Yes Status: Acute Assessment & Plan: CT head to r/o bleed, had ct facial bones in ER but with AMS reported by patient and family today I want a head CT to r/o intracranial bleed Code(s): R41.82 - ALTERED MENTAL STATUS, UNSPECIFIED
[2022-06-23] MEDS: VENTOLIN COMMON CANISTER IH PRN (20:15)
[2022-06-23] MEDS: Advair Hfa 230/21 Mcg COMMON CANISTER IH SCH (20:15)
[2022-06-23] MEDS ORDERED: NON-FORMULARY ITEM (Benazepril Hcl [Benazepril Hcl] 40 MG Tablet) PO SCH (22:00)
[2022-06-23] MEDS ORDERED: NON-FORMULARY ITEM (Insulin Lispro [Humalog Kwikpen U-100] 100 UNIT/ML Insuln.Pen) SQ SCH (22:00)
[2022-06-23] MEDS ORDERED: NON-FORMULARY ITEM (Simvastatin [Simvastatin] 40 MG Tablet) PO SCH (22:00)
[2022-06-23] MEDS: ceLEXa 20 MG PO SCH (22:16)
[2022-06-23] MEDS: NEURONTIN PO SCH (22:16)
[2022-06-23] MEDS: AMITRIPTYLINE 25 MG TABLET PO SCH (22:16)
[2022-06-23] MEDS: Robaxin PO SCH (22:16)
[2022-06-23] MEDS: Lotensin PO SCH (22:16)
[2022-06-23] MEDS: ZOCOR 20MG PO SCH (22:17)
[2022-06-23] MEDS: NORVASC 5 MG PO SCH (22:17)
[2022-06-23] MEDS: HUMALOG SQ SCH (22:18)
[2022-06-24] MEDS: OXYCODONE-ACETAMINOPHEN 10-325 PO PRN ×4 (01:13→21:35)
[2022-06-24 05:14] LABS: Hemoglobin 10.5 g/dL (12.5-18.0); Mean Cell Volume 86.5 fL (78-100); Mean Corpuscular Hemoglobin 26.7 pg (26-32); Mean Corpuscular Hgb Concent. 30.9 g/dL (32-36); Mean Platelet Volume 11.2 fL (7.5-11.0); Platelet Count 242 x10^3/uL (150-450); Red Blood Count 3.93 x10^6/uL (4.1-5.6); Red Cell Distribution Width 16.1 % (11.5-14.0)
[2022-06-24 05:20] LABS: ALBUMIN 3.9 g/dL (3.5-5.0); ANION GAP 10.9 MEQ/L (5-15); BILIRUBIN,TOTAL 0.3 mg/dL (0.2-1.3); Calcium 9.1 mg/dL (8.4-10.2); Creatinine 1 1.83 mg/dL (0.66-1.25); EST GLOMERULAR FILTRATION RATE 40.1 ML/MIN; Potassium 4.8 mmol/L (3.5-5.1); Total Protein 7.2 g/dL (6.3-8.2)
[2022-06-24 05:23] LABS: White Blood Count 30.5 x10^3/uL (4.0-10.5)
[2022-06-24] MEDS: solu-MEDROL 60 MG, Sterile H2O 10 ml 2 ML IV SCH ×8 (05:57→23:45)
[2022-06-24] MEDS: Advair Hfa 230/21 Mcg COMMON CANISTER IH SCH ×2 (07:06→18:43)
[2022-06-24] MEDS: HUMALOG SQ SCH ×4 (07:55→21:49)
--- NOTE | 2022-06-24 08:26 | XRAY ---
Indication: Left head injury, headache, and altered mental status following fall 2 days ago. Multiple contiguous axial images obtained through the head without contrast. Comparison: None Age-appropriate global atrophy and minimal periventricular degenerative micro-ischemia bilaterally. No acute intracranial hemorrhage, abnormal extra-axial fluid collection, or mass effect. Fourth ventricle is midline without hydrocephalus. Bony calvarium intact. Visualized paranasal sinuses and mastoid air cells are clear. Impression: Nonacute senile brain.
--- NOTE | 2022-06-24 08:50 | PCM.NOTE ---
Date and Time: 06/24/22 0848 Subjective Assessment: patient is feeling much better today than he did yesterday, shortness of breath is much improved. Objective Exam General Appearance: no apparent distress Neurologic Exam: alert, oriented x 3 Respiratory Exam: rhonchi, wheezing, No respiratory distress Cardiovascular Exam: regular rate/rhythm, normal heart sounds Gastrointestinal/Abdomen Exam: soft, No tenderness, No mass Extremity Exam: normal inspection, normal range of motion OBJECTIVE DATA Vital Signs: Vital Signs - 24 hr Temp Pulse Resp BP Pulse Ox 06/24/22 07:19 97.5 F 85 16 111/58 94 L 06/24/22 07:06 74 16 94 L 06/24/22 04:00 98.0 F 81 22 135/62 96 06/23/22 23:41 97.8 F 89 20 123/51 97 06/23/22 20:15 87 17 96 06/23/22 20:00 98.1 F 89 22 140/76 96 06/23/22 15:48 97.9 F 90 16 124/57 94 L 06/23/22 13:04 97.9 F 93 H 18 134/85 94 L 06/23/22 12:49 93 H 16 108/66 92 L 06/23/22 12:36 92 H 18 94 L 06/23/22 12:32 98 06/23/22 12:01 102 H 06/23/22 11:58 101 H 20 112/70 98 06/23/22 11:17 101 H 18 94 L 06/23/22 10:50 16 94 L 06/23/22 10:38 97.9 F 100 H 32 H 88 L Pain Assessment - Last Documented Pain Intensity 7 Pain Scale Used 0-10 Pain Scale Intake and Output: Intake & Output 06/21/22 06/22/22 06/23/22 06/24/22 11:59 11:59 11:59 11:59 Intake Total 1953 Output Total 3600 Balance -1647 Weight 123 kg 121 kg Lab Results: Lab Results-Last 24 Hours 06/23/22 06/23/22 06/23/22 Range/Units 10:45 11:00 11:00 WBC 19.2 H (4.0-10.5) x10^3/uL RBC 4.27 (4.1-5.6) x10^6/uL Hgb 11.4 L (12.5-18.0) g/dL Hct 36.9 L (42-50) % MCV 86.4 (78-100) fL MCH 26.7 (26-32) pg MCHC 30.9 L (32-36) g/dL RDW 15.9 H (11.5-14.0) % Plt Count 282 (150-450) x10^3/uL MPV 11.1 H (7.5-11.0) fL Gran % 88.9 H (36.0-66.0) % Immature Gran % (Auto) 0.6 H (0.00-0.4) % Nucleat RBC Rel Count 0.0 (0.00-0.1) % Eos # (Auto) 0.24 (0-0.5) x10^3/uL Immature Gran # (Auto) 0.11 H (0.00-0.03) x10^3u/L Absolute Lymphs (auto) 1.00 (1.0-4.6) x10^3/uL Absolute Monos (auto) 0.72 (0.0-1.3) x10^3/uL Absolute Nucleated RBC 0.00 (0.00-0.01) x10^3u/L Lymphocytes % 5.2 L (24.0-44.0) % Monocytes % 3.8 (0.0-12.0) % Eosinophils % 1.3 (0.00-5.0) % Basophils % 0.2 (0.0-0.4) % Absolute Granulocytes 17.09 H (1.4-6.9) x10^3/uL Basophils # 0.03 (0-0.4) x10^3/uL D-Dimer 0.65 H* (0.0-0.50) mg/L Sodium 134 L (137-145) mmol/L Potassium 3.7 (3.5-5.1) mmol/L Chloride 102 (98-107) mmol/L Carbon Dioxide 25 (22-30) mmol/L Anion Gap 11.5 (5-15) MEQ/L BUN 30 H (9-20) mg/dL Creatinine 1.83 H (0.66-1.25) mg/dL Estimated GFR 40.1 ML/MIN Glucose 210 H (74-106) mg/dL POC Glucometer (74 to 106) mg/dL Hemoglobin A1c (4.5-6.0) % Lactic Acid (0.4-2.0) Calcium 8.9 (8.4-10.2) mg/dL Magnesium 1.6 (1.6-2.3) mg/dL Total Bilirubin 0.50 (0.2-1.3) mg/dL AST 31 (17-59) U/L ALT 38 (0-50) U/L Alkaline Phosphatase 95 (38-126) U/L Troponin I (0.000-0.034) ng/mL NT-Pro-B Natriuret Pep 82.6 (0-900) pg/mL Serum Total Protein 7.5 (6.3-8.2) g/dL Albumin 4.2 (3.5-5.0) g/dL Procalcitonin (0.030-0.080) ng/mL Influenza Type A Ag (NEGATIVE) Influenza Type B Ag (NEGATIVE) RSV (PCR) (Negative) SARS-CoV-2 (PCR) (NEGATIVE) 06/23/22 06/23/22 06/23/22 Range/Units 11:00 11:00 11:00 WBC (4.0-10.5) x10^3/uL RBC (4.1-5.6) x10^6/uL Hgb (12.5-18.0) g/dL Hct (42-50) % MCV (78-100) fL MCH (26-32) pg MCHC (32-36) g/dL RDW (11.5-14.0) % Plt Count (150-450) x10^3/uL MPV (7.5-11.0) fL Gran % (36.0-66.0) % Immature Gran % (Auto) (0.00-0.4) % Nucleat RBC Rel Count (0.00-0.1) % Eos # (Auto) (0-0.5) x10^3/uL Immature Gran # (Auto) (0.00-0.03) x10^3u/L Absolute Lymphs (auto) (1.0-4.6) x10^3/uL Absolute Monos (auto) (0.0-1.3) x10^3/uL Absolute Nucleated RBC (0.00-0.01) x10^3u/L Lymphocytes % (24.0-44.0) % Monocytes % (0.0-12.0) % Eosinophils % (0.00-5.0) % Basophils % (0.0-0.4) % Absolute Granulocytes (1.4-6.9) x10^3/uL Basophils # (0-0.4) x10^3/uL D-Dimer (0.0-0.50) mg/L Sodium (137-145) mmol/L Potassium (3.5-5.1) mmol/L Chloride (98-107) mmol/L Carbon Dioxide (22-30) mmol/L Anion Gap (5-15) MEQ/L BUN (9-20) mg/dL Creatinine (0.66-1.25) mg/dL Estimated GFR ML/MIN Glucose (74-106) mg/dL POC Glucometer (74 to 106) mg/dL Hemoglobin A1c 8.22 H (4.5-6.0) % Lactic Acid (0.4-2.0) Calcium (8.4-10.2) mg/dL Magnesium (1.6-2.3) mg/dL Total Bilirubin (0.2-1.3) mg/dL AST (17-59) U/L ALT (0-50) U/L Alkaline Phosphatase (38-126) U/L Troponin I < 0.012 (0.000-0.034) ng/mL NT-Pro-B Natriuret Pep (0-900) pg/mL Serum Total Protein (6.3-8.2) g/dL Albumin (3.5-5.0) g/dL Procalcitonin 1.010 H (0.030-0.080) ng/mL Influenza Type A Ag (NEGATIVE) Influenza Type B Ag (NEGATIVE) RSV (PCR) (Negative) SARS-CoV-2 (PCR) (NEGATIVE) 06/23/22 06/23/22 06/23/22 Range/Units 11:02 11:10 15:18 WBC (4.0-10.5) x10^3/uL RBC (4.1-5.6) x10^6/uL Hgb (12.5-18.0) g/dL Hct (42-50) % MCV (78-100) fL MCH (26-32) pg MCHC (32-36) g/dL RDW (11.5-14.0) % Plt Count (150-450) x10^3/uL MPV (7.5-11.0) fL Gran % (36.0-66.0) % Immature Gran % (Auto) (0.00-0.4) % Nucleat RBC Rel Count (0.00-0.1) % Eos # (Auto) (0-0.5) x10^3/uL Immature Gran # (Auto) (0.00-0.03) x10^3u/L Absolute Lymphs (auto) (1.0-4.6) x10^3/uL Absolute Monos (auto) (0.0-1.3) x10^3/uL Absolute Nucleated RBC (0.00-0.01) x10^3u/L Lymphocytes % (24.0-44.0) % Monocytes % (0.0-12.0) % Eosinophils % (0.00-5.0) % Basophils % (0.0-0.4) % Absolute Granulocytes (1.4-6.9) x10^3/uL Basophils # (0-0.4) x10^3/uL D-Dimer (0.0-0.50) mg/L Sodium (137-145) mmol/L Potassium (3.5-5.1) mmol/L Chloride (98-107) mmol/L Carbon Dioxide (22-30) mmol/L Anion Gap (5-15) MEQ/L BUN (9-20) mg/dL Creatinine (0.66-1.25) mg/dL Estimated GFR ML/MIN Glucose (74-106) mg/dL POC Glucometer (74 to 106) mg/dL Hemoglobin A1c (4.5-6.0) % Lactic Acid 1.9 (0.4-2.0) Calcium (8.4-10.2) mg/dL Magnesium (1.6-2.3) mg/dL Total Bilirubin (0.2-1.3) mg/dL AST (17-59) U/L ALT (0-50) U/L Alkaline Phosphatase (38-126) U/L Troponin I < 0.012 (0.000-0.034) ng/mL NT-Pro-B Natriuret Pep (0-900) pg/mL Serum Total Protein (6.3-8.2) g/dL Albumin (3.5-5.0) g/dL Procalcitonin (0.030-0.080) ng/mL Influenza Type A Ag NEGATIVE (NEGATIVE) Influenza Type B Ag NEGATIVE (NEGATIVE) RSV (PCR) NEGATIVE (Negative) SARS-CoV-2 (PCR) NEGATIVE (NEGATIVE) 06/23/22 06/23/22 06/23/22 Range/Units 16:09 19:00 21:34 WBC (4.0-10.5) x10^3/uL RBC (4.1-5.6) x10^6/uL Hgb (12.5-18.0) g/dL Hct (42-50) % MCV (78-100) fL MCH (26-32) pg MCHC (32-36) g/dL RDW (11.5-14.0) % Plt Count (150-450) x10^3/uL MPV (7.5-11.0) fL Gran % (36.0-66.0) % Immature Gran % (Auto) (0.00-0.4) % Nucleat RBC Rel Count (0.00-0.1) % Eos # (Auto) (0-0.5) x10^3/uL Immature Gran # (Auto) (0.00-0.03) x10^3u/L Absolute Lymphs (auto) (1.0-4.6) x10^3/uL Absolute Monos (auto) (0.0-1.3) x10^3/uL Absolute Nucleated RBC (0.00-0.01) x10^3u/L Lymphocytes % (24.0-44.0) % Monocytes % (0.0-12.0) % Eosinophils % (0.00-5.0) % Basophils % (0.0-0.4) % Absolute Granulocytes (1.4-6.9) x10^3/uL Basophils # (0-0.4) x10^3/uL D-Dimer (0.0-0.50) mg/L Sodium (137-145) mmol/L Potassium (3.5-5.1) mmol/L Chloride (98-107) mmol/L Carbon Dioxide (22-30) mmol/L Anion Gap (5-15) MEQ/L BUN (9-20) mg/dL Creatinine (0.66-1.25) mg/dL Estimated GFR ML/MIN Glucose (74-106) mg/dL POC Glucometer 311 H 510 H* (74 to 106) mg/dL Hemoglobin A1c (4.5-6.0) % Lactic Acid (0.4-2.0) Calcium (8.4-10.2) mg/dL Magnesium (1.6-2.3) mg/dL Total Bilirubin (0.2-1.3) mg/dL AST (17-59) U/L ALT (0-50) U/L Alkaline Phosphatase (38-126) U/L Troponin I < 0.012 (0.000-0.034) ng/mL NT-Pro-B Natriuret Pep (0-900) pg/mL Serum Total Protein (6.3-8.2) g/dL Albumin (3.5-5.0) g/dL Procalcitonin (0.030-0.080) ng/mL Influenza Type A Ag (NEGATIVE) Influenza Type B Ag (NEGATIVE) RSV (PCR) (Negative) SARS-CoV-2 (PCR) (NEGATIVE) 06/23/22 06/24/22 06/24/22 Range/Units 21:39 04:50 04:50 WBC 30.5 H* (4.0-10.5) x10^3/uL RBC 3.93 L (4.1-5.6) x10^6/uL Hgb 10.5 L (12.5-18.0) g/dL Hct 34.0 L (42-50) % MCV 86.5 (78-100) fL MCH 26.7 (26-32) pg MCHC 30.9 L (32-36) g/dL RDW 16.1 H (11.5-14.0) % Plt Count 242 (150-450) x10^3/uL MPV 11.2 H (7.5-11.0) fL Gran % (36.0-66.0) % Immature Gran % (Auto) (0.00-0.4) % Nucleat RBC Rel Count (0.00-0.1) % Eos # (Auto) (0-0.5) x10^3/uL Immature Gran # (Auto) (0.00-0.03) x10^3u/L Absolute Lymphs (auto) (1.0-4.6) x10^3/uL Absolute Monos (auto) (0.0-1.3) x10^3/uL Absolute Nucleated RBC (0.00-0.01) x10^3u/L Lymphocytes % (24.0-44.0) % Monocytes % (0.0-12.0) % Eosinophils % (0.00-5.0) % Basophils % (0.0-0.4) % Absolute Granulocytes (1.4-6.9) x10^3/uL Basophils # (0-0.4) x10^3/uL D-Dimer (0.0-0.50) mg/L Sodium 134 L (137-145) mmol/L Potassium 4.8 D (3.5-5.1) mmol/L Chloride 98 (98-107) mmol/L Carbon Dioxide 30 (22-30) mmol/L Anion Gap 10.9 (5-15) MEQ/L BUN 30 H (9-20) mg/dL Creatinine 1.83 H (0.66-1.25) mg/dL Estimated GFR 40.1 ML/MIN Glucose 385 H (74-106) mg/dL POC Glucometer 490 H (74 to 106) mg/dL Hemoglobin A1c (4.5-6.0) % Lactic Acid (0.4-2.0) Calcium 9.1 (8.4-10.2) mg/dL Magnesium (1.6-2.3) mg/dL Total Bilirubin 0.30 (0.2-1.3) mg/dL AST 28 (17-59) U/L ALT 35 (0-50) U/L Alkaline Phosphatase 78 (38-126) U/L Troponin I (0.000-0.034) ng/mL NT-Pro-B Natriuret Pep (0-900) pg/mL Serum Total Protein 7.2 (6.3-8.2) g/dL Albumin 3.9 (3.5-5.0) g/dL Procalcitonin (0.030-0.080) ng/mL Influenza Type A Ag (NEGATIVE) Influenza Type B Ag (NEGATIVE) RSV (PCR) (Negative) SARS-CoV-2 (PCR) (NEGATIVE) 06/24/22 Range/Units 07:05 WBC (4.0-10.5) x10^3/uL RBC (4.1-5.6) x10^6/uL Hgb (12.5-18.0) g/dL Hct (42-50) % MCV (78-100) fL MCH (26-32) pg MCHC (32-36) g/dL RDW (11.5-14.0) % Plt Count (150-450) x10^3/uL MPV (7.5-11.0) fL Gran % (36.0-66.0) % Immature Gran % (Auto) (0.00-0.4) % Nucleat RBC Rel Count (0.00-0.1) % Eos # (Auto) (0-0.5) x10^3/uL Immature Gran # (Auto) (0.00-0.03) x10^3u/L Absolute Lymphs (auto) (1.0-4.6) x10^3/uL Absolute Monos (auto) (0.0-1.3) x10^3/uL Absolute Nucleated RBC (0.00-0.01) x10^3u/L Lymphocytes % (24.0-44.0) % Monocytes % (0.0-12.0) % Eosinophils % (0.00-5.0) % Basophils % (0.0-0.4) % Absolute Granulocytes (1.4-6.9) x10^3/uL Basophils # (0-0.4) x10^3/uL D-Dimer (0.0-0.50) mg/L Sodium (137-145) mmol/L Potassium (3.5-5.1) mmol/L Chloride (98-107) mmol/L Carbon Dioxide (22-30) mmol/L Anion Gap (5-15) MEQ/L BUN (9-20) mg/dL Creatinine (0.66-1.25) mg/dL Estimated GFR ML/MIN Glucose (74-106) mg/dL POC Glucometer 329 H (74 to 106) mg/dL Hemoglobin A1c (4.5-6.0) % Lactic Acid (0.4-2.0) Calcium (8.4-10.2) mg/dL Magnesium (1.6-2.3) mg/dL Total Bilirubin (0.2-1.3) mg/dL AST (17-59) U/L ALT (0-50) U/L Alkaline Phosphatase (38-126) U/L Troponin I (0.000-0.034) ng/mL NT-Pro-B Natriuret Pep (0-900) pg/mL Serum Total Protein (6.3-8.2) g/dL Albumin (3.5-5.0) g/dL Procalcitonin (0.030-0.080) ng/mL Influenza Type A Ag (NEGATIVE) Influenza Type B Ag (NEGATIVE) RSV (PCR) (Negative) SARS-CoV-2 (PCR) (NEGATIVE) Radiology Exams: Radiology Procedures Category Date Time Status CHEST 1 VIEW (PORTABLE) Stat Exams 06/23/22 10:46 Completed FACIAL BONES WO CONTRAST [CT] Routine Exams 06/23/22 11:24 Completed FOREARM Stat Exams 06/23/22 11:08 Completed HEAD WITHOUT CONTRAST [CT] Urgent Exams 06/23/22 19:09 Completed Assessment/Plan (1) Pneumonia Current Visit: Yes Status: Acute Assessment & Plan: continue rocephin/zithromax Code(s): J18.9 - PNEUMONIA, UNSPECIFIED ORGANISM (2) COPD (chronic obstructive pulmonary disease) Current Visit: Yes Status: Acute Assessment & Plan: improved with IV solu medrol and IV abx. continue current treatment (3) Chronic kidney disease Current Visit: Yes Status: Acute Code(s): N18.9 - CHRONIC KIDNEY DISEASE, UNSPECIFIED (4) Altered mental status Current Visit: Yes Status: Acute Code(s): R41.82 - ALTERED MENTAL STATUS, UNSPECIFIED
[2022-06-24] MEDS: AMITRIPTYLINE 25 MG TABLET PO SCH ×2 (09:49→21:31)
[2022-06-24] MEDS: NEURONTIN PO SCH ×2 (09:49→21:34)
[2022-06-24] MEDS: ROCEPHIN 1 Gm-D5w 50 ml Bag** 1 G/50 ML IVPB IV SCH (09:49)
[2022-06-24] MEDS: Flomax 0.4 MG PO SCH (09:49)
[2022-06-24] MEDS ORDERED: NON-FORMULARY ITEM (Budesonide/Glycopyr/Formoterol [Breztri Aerosphere Inhaler] 10.7 GM Hf IH SCH (10:00)
[2022-06-24 10:10] LABS: Slide Review YES
[2022-06-24] MEDS: Zithromax 500 MG/ 250 ML NaCl Premix 500 MG/250 ML IVPB IV SCH (10:26)
[2022-06-24] MEDS: Mucinex 600MG ER Tabs PO SCH ×2 (11:37→21:34)
[2022-06-24] MEDS: VENTOLIN COMMON CANISTER IH PRN (18:44)
[2022-06-24] MEDS: NORVASC 5 MG PO SCH (21:31)
[2022-06-24] MEDS: Lotensin PO SCH (21:31)
[2022-06-24] MEDS: ZOCOR 20MG PO SCH (21:34)
[2022-06-24] MEDS: ceLEXa 20 MG PO SCH (21:34)
[2022-06-24] MEDS: Robaxin PO SCH (21:35)
[2022-06-24] MEDS: HUMALOG SQ PRN (21:36)
[2022-06-25 04:53] LABS: Absolute Neutrophil Ct (ANC) 27.65 x10^3/uL (1.4-6.9); Basophil (Absolute #) 0.03 x10^3/uL (0-0.4); Eosinophil (Absolute #) 0 x10^3/uL (0-0.5); Hematocrit 36.7 % (42-50); Hemoglobin 11.2 g/dL (12.5-18.0); Lymphocyte (Absolute #) 0.93 x10^3/uL (1.0-4.6); Lymphocytes % 3.1 % (24.0-44.0); Mean Cell Volume 87.4 fL (78-100); Mean Corpuscular Hemoglobin 26.7 pg (26-32); Mean Corpuscular Hgb Concent. 30.5 g/dL (32-36); Mean Platelet Volume 11.2 fL (7.5-11.0); Monocyte (Absolute #) 0.84 x10^3/uL (0.0-1.3); Monocytes % 2.8 % (0.0-12.0); Neutrophil % 93.1 % (36.0-66.0); Platelet Count 275 x10^3/uL (150-450); Red Cell Distribution Width 16.3 % (11.5-14.0)
[2022-06-25 04:59] LABS: White Blood Count 29.7 x10^3/uL (4.0-10.5)
[2022-06-25 05:24] LABS: ANION GAP 9.5 MEQ/L (5-15); BILIRUBIN,TOTAL 0.3 mg/dL (0.2-1.3); Calcium 9.3 mg/dL (8.4-10.2); Creatinine 1 1.46 mg/dL (0.66-1.25); Potassium 4.7 mmol/L (3.5-5.1); Total Protein 7.5 g/dL (6.3-8.2)
[2022-06-25] MEDS: OXYCODONE-ACETAMINOPHEN 10-325 PO PRN ×3 (06:17→19:33)
[2022-06-25] MEDS: solu-MEDROL 60 MG, Sterile H2O 10 ml 2 ML IV SCH ×2 (06:17)
[2022-06-25] MEDS: Advair Hfa 230/21 Mcg COMMON CANISTER IH SCH ×2 (07:33→19:45)
[2022-06-25 07:38] LABS: Slide Review 1 YES
--- NOTE | 2022-06-25 08:35 | PCM.NOTE ---
Date and Time: 06/25/22832 Subjective Assessment: feeling much better today, still had a coughing fit last night and very hard to breath. requiring 2L oxygen at this point Objective Exam General Appearance: no apparent distress, obese Skin Exam: normal color, warm, dry Respiratory Exam: wheezing Cardiovascular Exam: regular rate/rhythm, normal heart sounds Gastrointestinal/Abdomen Exam: soft, No tenderness, No mass OBJECTIVE DATA Vital Signs: Vital Signs - 24 hr Temp Pulse Resp BP Pulse Ox 06/25/22 07:37 76 18 95 06/25/22 07:02 97.7 F 83 18 134/64 95 06/25/22 04:00 97.1 F 83 20 136/74 06/24/22 23:34 97.3 F 17 147/67 94 L 06/24/22 19:34 97.8 F 94 H 19 130/62 94 L 06/24/22 18:44 93 H 18 95 06/24/22 15:11 97.9 F 93 H 16 147/79 96 06/24/22 11:27 98.7 F 93 H 18 107/64 91 L 06/24/22 10:46 91 L 06/24/22 10:27 95 Pain Assessment - Last Documented Pain Intensity 4 Pain Scale Used 0-10 Pain Scale Intake and Output: Intake & Output 06/22/22 06/23/22 06/24/22 06/25/22 11:59 11:59 11:59 11:59 Intake Total 2193 1020 Output Total 3600 1600 Balance -1407 -580 Weight 123 kg 121 kg Lab Results: Lab Results-Last 24 Hours 06/24/22 06/24/22 06/24/22 Range/Units 04:50 11:09 15:47 WBC 30.5 H* (4.0-10.5) x10^3/uL RBC 3.93 L (4.1-5.6) x10^6/uL Hgb 10.5 L (12.5-18.0) g/dL Hct 34.0 L (42-50) % MCV 86.5 (78-100) fL MCH 26.7 (26-32) pg MCHC 30.9 L (32-36) g/dL RDW 16.1 H (11.5-14.0) % Plt Count 242 (150-450) x10^3/uL MPV 11.2 H (7.5-11.0) fL Gran % (36.0-66.0) % Immature Gran % (Auto) (0.00-0.4) % Nucleat RBC Rel Count (0.00-0.1) % Eos # (Auto) (0-0.5) x10^3/uL Immature Gran # (Auto) (0.00-0.03) x10^3u/L Absolute Lymphs (auto) (1.0-4.6) x10^3/uL Absolute Monos (auto) (0.0-1.3) x10^3/uL Absolute Nucleated RBC (0.00-0.01) x10^3u/L Lymphocytes % (24.0-44.0) % Monocytes % (0.0-12.0) % Eosinophils % (0.00-5.0) % Basophils % (0.0-0.4) % Absolute Granulocytes (1.4-6.9) x10^3/uL Basophils # (0-0.4) x10^3/uL Smear Path Review Sodium (137-145) mmol/L Potassium (3.5-5.1) mmol/L Chloride (98-107) mmol/L Carbon Dioxide (22-30) mmol/L Anion Gap (5-15) MEQ/L BUN (9-20) mg/dL Creatinine (0.66-1.25) mg/dL Estimated GFR ML/MIN Glucose (74-106) mg/dL POC Glucometer 353 H 399 H (74 to 106) mg/dL Calcium (8.4-10.2) mg/dL Total Bilirubin (0.2-1.3) mg/dL AST (17-59) U/L ALT (0-50) U/L Alkaline Phosphatase (38-126) U/L Serum Total Protein (6.3-8.2) g/dL Albumin (3.5-5.0) g/dL Slides for Path Review YES 06/24/22 06/25/22 06/25/22 Range/Units 20:25 04:47 04:47 WBC 29.7 H* (4.0-10.5) x10^3/uL RBC 4.20 (4.1-5.6) x10^6/uL Hgb 11.2 L (12.5-18.0) g/dL Hct 36.7 L (42-50) % MCV 87.4 (78-100) fL MCH 26.7 (26-32) pg MCHC 30.5 L (32-36) g/dL RDW 16.3 H (11.5-14.0) % Plt Count 275 (150-450) x10^3/uL MPV 11.2 H (7.5-11.0) fL Gran % 93.1 H (36.0-66.0) % Immature Gran % (Auto) 0.9 H (0.00-0.4) % Nucleat RBC Rel Count 0.0 (0.00-0.1) % Eos # (Auto) 0 (0-0.5) x10^3/uL Immature Gran # (Auto) 0.27 H (0.00-0.03) x10^3u/L Absolute Lymphs (auto) 0.93 L (1.0-4.6) x10^3/uL Absolute Monos (auto) 0.84 (0.0-1.3) x10^3/uL Absolute Nucleated RBC 0.00 (0.00-0.01) x10^3u/L Lymphocytes % 3.1 L (24.0-44.0) % Monocytes % 2.8 (0.0-12.0) % Eosinophils % 0.0 (0.00-5.0) % Basophils % 0.1 (0.0-0.4) % Absolute Granulocytes 27.65 H (1.4-6.9) x10^3/uL Basophils # 0.03 (0-0.4) x10^3/uL Smear Path Review Sodium 134 L (137-145) mmol/L Potassium 4.7 (3.5-5.1) mmol/L Chloride 100 (98-107) mmol/L Carbon Dioxide 29 (22-30) mmol/L Anion Gap 9.5 (5-15) MEQ/L BUN 38 H (9-20) mg/dL Creatinine 1.46 H (0.66-1.25) mg/dL Estimated GFR 52.0 ML/MIN Glucose 458 H (74-106) mg/dL POC Glucometer 470 H (74 to 106) mg/dL Calcium 9.3 (8.4-10.2) mg/dL Total Bilirubin 0.30 (0.2-1.3) mg/dL AST 24 (17-59) U/L ALT 33 (0-50) U/L Alkaline Phosphatase 89 (38-126) U/L Serum Total Protein 7.5 (6.3-8.2) g/dL Albumin 4.0 (3.5-5.0) g/dL Slides for Path Review YES 06/25/22 Range/Units 06:49 WBC (4.0-10.5) x10^3/uL RBC (4.1-5.6) x10^6/uL Hgb (12.5-18.0) g/dL Hct (42-50) % MCV (78-100) fL MCH (26-32) pg MCHC (32-36) g/dL RDW (11.5-14.0) % Plt Count (150-450) x10^3/uL MPV (7.5-11.0) fL Gran % (36.0-66.0) % Immature Gran % (Auto) (0.00-0.4) % Nucleat RBC Rel Count (0.00-0.1) % Eos # (Auto) (0-0.5) x10^3/uL Immature Gran # (Auto) (0.00-0.03) x10^3u/L Absolute Lymphs (auto) (1.0-4.6) x10^3/uL Absolute Monos (auto) (0.0-1.3) x10^3/uL Absolute Nucleated RBC (0.00-0.01) x10^3u/L Lymphocytes % (24.0-44.0) % Monocytes % (0.0-12.0) % Eosinophils % (0.00-5.0) % Basophils % (0.0-0.4) % Absolute Granulocytes (1.4-6.9) x10^3/uL Basophils # (0-0.4) x10^3/uL Smear Path Review Sodium (137-145) mmol/L Potassium (3.5-5.1) mmol/L Chloride (98-107) mmol/L Carbon Dioxide (22-30) mmol/L Anion Gap (5-15) MEQ/L BUN (9-20) mg/dL Creatinine (0.66-1.25) mg/dL Estimated GFR ML/MIN Glucose (74-106) mg/dL POC Glucometer 392 H (74 to 106) mg/dL Calcium (8.4-10.2) mg/dL Total Bilirubin (0.2-1.3) mg/dL AST (17-59) U/L ALT (0-50) U/L Alkaline Phosphatase (38-126) U/L Serum Total Protein (6.3-8.2) g/dL Albumin (3.5-5.0) g/dL Slides for Path Review Radiology Exams: Radiology Procedures Category Date Time Status CHEST 1 VIEW (PORTABLE) Stat Exams 06/23/22 10:46 Completed FACIAL BONES WO CONTRAST [CT] Routine Exams 06/23/22 11:24 Completed FOREARM Stat Exams 06/23/22 11:08 Completed HEAD WITHOUT CONTRAST [CT] Urgent Exams 06/23/22 19:09 Completed Assessment/Plan (1) Pneumonia Current Visit: Yes Status: Acute Assessment & Plan: improving clinically, continue rocephin/zithromax. repeat chest xray today Code(s): J18.9 - PNEUMONIA, UNSPECIFIED ORGANISM (2) COPD (chronic obstructive pulmonary disease) Current Visit: Yes Status: Acute Assessment & Plan: wheezing much improved, still has some audible wheezing in right upper lung and requiring 2L oxygen, he is not on oxygen at home. attempt to decrease steroids (3) Chronic kidney disease Current Visit: Yes Status: Acute Assessment & Plan: GFR improved since admission Code(s): N18.9 - CHRONIC KIDNEY DISEASE, UNSPECIFIED (4) Altered mental status Current Visit: Yes Status: Acute Code(s): R41.82 - ALTERED MENTAL STATUS, UNSPECIFIED
--- NOTE | 2022-06-25 09:20 | XRAY ---
Indication: Follow-up pneumonia. Comparison: June 23, 2022 Portable chest remains slightly underinflated. Diffuse right lung groundglass airspace disease mildly improved with mild residual. Heart not enlarged. No new cardiopulmonary abnormalities.
[2022-06-25] MEDS: NEURONTIN PO SCH ×2 (10:15→21:04)
[2022-06-25] MEDS: HUMALOG SQ PRN ×4 (10:15→21:49)
[2022-06-25] MEDS: Flomax 0.4 MG PO SCH (10:15)
[2022-06-25] MEDS: Mucinex 600MG ER Tabs PO SCH ×2 (10:15→21:04)
[2022-06-25] MEDS: AMITRIPTYLINE 25 MG TABLET PO SCH ×2 (10:15→21:03)
[2022-06-25] MEDS: ROCEPHIN 1 Gm-D5w 50 ml Bag** 1 G/50 ML IVPB IV SCH (10:16)
[2022-06-25] MEDS: Zithromax 500 MG/ 250 ML NaCl Premix 500 MG/250 ML IVPB IV SCH (10:50)
[2022-06-25] MEDS ORDERED: solu-MEDROL IV SCH (12:00)
[2022-06-25] MEDS: solu-MEDROL 40 MG, Sterile H2O 10 ml 1 ML IV SCH ×6 (12:07→23:46)
[2022-06-25] MEDS ORDERED: solu-MEDROL ONE (16:53)
[2022-06-25] MEDS: VENTOLIN COMMON CANISTER IH PRN (19:44)
[2022-06-25] MEDS: ZOCOR 20MG PO SCH (21:04)
[2022-06-25] MEDS: ceLEXa 20 MG PO SCH (21:04)
[2022-06-25] MEDS: NORVASC 5 MG PO SCH (21:04)
[2022-06-25] MEDS: Lotensin PO SCH (21:04)
[2022-06-25] MEDS: Robaxin PO SCH (21:05)
[2022-06-26] MEDS: solu-MEDROL 40 MG, Sterile H2O 10 ml 1 ML IV SCH ×8 (05:42→23:31)
[2022-06-26] MEDS: OXYCODONE-ACETAMINOPHEN 10-325 PO PRN ×3 (05:42→19:50)
[2022-06-26 06:24] LABS: Hematocrit 35.8 % (42-50); Hemoglobin 11.1 g/dL (12.5-18.0); Mean Cell Volume 86.1 fL (78-100); Mean Corpuscular Hemoglobin 26.7 pg (26-32); Mean Platelet Volume 11.1 fL (7.5-11.0); Platelet Count 296 x10^3/uL (150-450); Red Blood Count 4.16 x10^6/uL (4.1-5.6); Red Cell Distribution Width 16.3 % (11.5-14.0)
[2022-06-26 06:44] LABS: White Blood Count 27.1 x10^3/uL (4.0-10.5)
[2022-06-26 06:57] LABS: ALBUMIN 3.7 g/dL (3.5-5.0); BILIRUBIN,TOTAL 0.4 mg/dL (0.2-1.3); Calcium 8.9 mg/dL (8.4-10.2); Creatinine 1 1.32 mg/dL (0.66-1.25); EST GLOMERULAR FILTRATION RATE 58.4 ML/MIN; Potassium 4.5 mmol/L (3.5-5.1)
[2022-06-26] MEDS: Advair Hfa 230/21 Mcg COMMON CANISTER IH SCH ×2 (08:05→18:51)
[2022-06-26] MEDS: ROCEPHIN 1 Gm-D5w 50 ml Bag** 1 G/50 ML IVPB IV SCH (09:14)
[2022-06-26] MEDS: AMITRIPTYLINE 25 MG TABLET PO SCH ×2 (09:15→21:00)
[2022-06-26] MEDS: NEURONTIN PO SCH ×2 (09:15→21:00)
[2022-06-26] MEDS: Flomax 0.4 MG PO SCH (09:15)
[2022-06-26] MEDS: Mucinex 600MG ER Tabs PO SCH ×2 (09:16→21:00)
[2022-06-26] MEDS: HUMALOG SQ PRN ×4 (09:17→21:41)
[2022-06-26] MEDS: Zithromax 500 MG/ 250 ML NaCl Premix 500 MG/250 ML IVPB IV SCH (09:48)
[2022-06-26 12:16] LABS: BAND 12 % (0.0-2.0); Lymphocytes 7 % (24-44); Monocyte 2 % (0.0-12.0); Total Cells Counted 100
[2022-06-26 12:17] LABS: Platelet Estimate NORMAL (NORMAL)
[2022-06-26] MEDS: PROVENTIL 2.5 MG/3 ML NEB IH SCH (18:45)
[2022-06-26] MEDS: Lotensin PO SCH (21:00)
[2022-06-26] MEDS: ceLEXa 20 MG PO SCH (21:00)
[2022-06-26] MEDS: Robaxin PO SCH (21:01)
[2022-06-26] MEDS: NORVASC 5 MG PO SCH (21:01)
[2022-06-26] MEDS: ZOCOR 20MG PO SCH (21:01)
[2022-06-27] MEDS: OXYCODONE-ACETAMINOPHEN 10-325 PO PRN ×3 (04:37→17:27)
[2022-06-27] MEDS: solu-MEDROL 40 MG, Sterile H2O 10 ml 1 ML IV SCH ×4 (05:48→12:00)
[2022-06-27] MEDS ORDERED: PROVENTIL 2.5 MG/3 ML NEB IH ONE (07:10)
[2022-06-27] MEDS: PROVENTIL 2.5 MG/3 ML NEB IH SCH ×3 (07:46→19:29)
[2022-06-27] MEDS: Advair Hfa 230/21 Mcg COMMON CANISTER IH SCH ×2 (07:47→19:31)
[2022-06-27] MEDS: HUMALOG SQ PRN ×3 (08:18→17:28)
[2022-06-27] MEDS: Flomax 0.4 MG PO SCH (10:30)
[2022-06-27] MEDS: NEURONTIN PO SCH ×2 (10:30→20:21)
[2022-06-27] MEDS: Mucinex 600MG ER Tabs PO SCH ×2 (10:30→20:21)
[2022-06-27] MEDS: AMITRIPTYLINE 25 MG TABLET PO SCH ×2 (10:30→20:20)
[2022-06-27] MEDS: ROCEPHIN 1 Gm-D5w 50 ml Bag** 1 G/50 ML IVPB IV SCH (10:31)
[2022-06-27] MEDS: Zithromax 500 MG/ 250 ML NaCl Premix 500 MG/250 ML IVPB IV SCH (10:59)
--- NOTE | 2022-06-27 14:49 | PCM.NOTE ---
Date and Time: 06/26/22 1800 Subjective Assessment: patient states he is feeling better but still on O2 and short of breath when up. Hx Covid x 2 this year- DR Coyne follows,just started a C-Pap for home.. Objective Exam General Appearance: no apparent distress Neurologic Exam: alert, oriented x 3, cooperative, normal mood/affect Skin Exam: normal color, warm, dry Neck Exam: normal inspection Respiratory Exam: diminished breath sounds, wheezing (left mid) Cardiovascular Exam: regular rate/rhythm Gastrointestinal/Abdomen Exam: soft, No tenderness Extremity Exam: other (no pitting edema) OBJECTIVE DATA Vital Signs: Vital Signs - 24 hr Temp Pulse Resp BP Pulse Ox 06/27/22 13:29 102 H 18 94 L 06/27/22 11:55 97.7 F 89 19 134/61 90 L 06/27/22 07:50 97.3 F 78 16 158/68 94 L 06/27/22 07:47 78 16 94 L 06/27/22 05:20 86 16 165/79 94 L 06/27/22 04:00 97.6 F 82 17 185/54 95 06/26/22 23:42 98.0 F 101 H 19 146/74 95 06/26/22 19:32 98.6 F 84 18 164/82 96 06/26/22 18:45 84 18 96 06/26/22 16:00 97.1 F 87 20 182/86 93 L Pain Assessment - Last Documented Pain Intensity 4 Pain Scale Used 0-10 Pain Scale Intake and Output: Intake & Output 06/25/22 06/26/22 06/27/22 06/28/22 11:59 11:59 11:59 11:59 Intake Total 1500 1920 3199 360 Output Total 1600 Balance -100 1920 3199 360 Weight 121 kg 117.1 kg 115.5 kg Lab Results: Lab Results-Last 24 Hours 06/26/22 06/26/22 06/27/22 Range/Units 16:24 21:20 05:35 POC Glucometer 308 H 433 H (74 to 106) mg/dL Troponin I < 0.012 (0.000-0.034) ng/mL 06/27/22 06/27/22 Range/Units 07:12 11:46 POC Glucometer 393 H 389 H (74 to 106) mg/dL Troponin I (0.000-0.034) ng/mL Multi-Disciplinary Progress Notes: Multi-Disciplinary Progress Notes 06/27/22 11:02 Respiratory Note by Norma Benedict 1050 N/C 2LPM SPO2 96%. 1100 ROOM AIR SPO2 96% Initialized on 06/27/22 11:02 - END OF NOTE Assessment/Plan (1) Pneumonia Current Visit: Yes Status: Acute Assessment & Plan: clinically improve ,still on O2 Code(s): J18.9 - PNEUMONIA, UNSPECIFIED ORGANISM
--- NOTE | 2022-06-27 16:25 | PCM.NOTE ---
Date and Time: 06/27/22 1622 Subjective Assessment: Patient improved . States up and showered with out shortness of breath. Neb txs helping. OBJECTIVE DATA Vital Signs: Vital Signs - 24 hr Temp Pulse Resp BP Pulse Ox 06/27/22 13:29 102 H 18 94 L 06/27/22 11:55 97.7 F 89 19 134/61 90 L 06/27/22 07:50 97.3 F 78 16 158/68 94 L 06/27/22 07:47 78 16 94 L 06/27/22 05:20 86 16 165/79 94 L 06/27/22 04:00 97.6 F 82 17 185/54 95 06/26/22 23:42 98.0 F 101 H 19 146/74 95 06/26/22 19:32 98.6 F 84 18 164/82 96 06/26/22 18:45 84 18 96 Pain Assessment - Last Documented Pain Intensity 4 Pain Scale Used 0-10 Pain Scale Intake and Output: Intake & Output 06/25/22 06/26/22 06/27/22 06/28/22 11:59 11:59 11:59 11:59 Intake Total 1500 1920 3199 360 Output Total 1600 Balance -100 1920 3199 360 Weight 121 kg 117.1 kg 115.5 kg Lab Results: Lab Results-Last 24 Hours 06/26/22 06/26/22 06/27/22 Range/Units 16:24 21:20 05:35 POC Glucometer 308 H 433 H (74 to 106) mg/dL Troponin I < 0.012 (0.000-0.034) ng/mL 06/27/22 06/27/22 Range/Units 07:12 11:46 POC Glucometer 393 H 389 H (74 to 106) mg/dL Troponin I (0.000-0.034) ng/mL Multi-Disciplinary Progress Notes: Multi-Disciplinary Progress Notes 06/27/22 15:41 Respiratory Note by Norma Benedict AMBULATED ON ROOM AIR APPROX 100FT SPO2 90-92% NO SOB Initialized on 06/27/22 15:41 - END OF NOTE 06/27/22 11:02 Respiratory Note by Norma Benedict 1050 N/C 2LPM SPO2 96%. 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
[2022-06-27] MEDS ORDERED: Tessalon Perles 100 MG PO ONE ×2 (17:26→20:11)
[2022-06-27] MEDS: Tessalon Perles 100 MG PO PRN ×2 (17:27→20:22)
[2022-06-27 20:11] VITALS: BP 128/56; PULSE 96; O2SAT 94
[2022-06-27] MEDS: Lotensin PO SCH (20:20)
[2022-06-27] MEDS: ceLEXa 20 MG PO SCH (20:20)
[2022-06-27] MEDS: NORVASC 5 MG PO SCH (20:21)
[2022-06-27] MEDS: Robaxin PO SCH (20:21)
[2022-06-27] MEDS: ZOCOR 20MG PO SCH (20:22)
--- NOTE | 2022-06-27 20:34 | PCM.DCORD ---
- Discharge Condition: Fair Prescriptions: New Prednisone 10 mg [Deltasone 10 mg] 0 mg PO DAILY #20 tablet Benzonatate 100 mg PO TID #60 cap Continue Oxycodone / APAP 10/325 mg [Oxycodone-Acetaminophen 10-325] 1 tab PO Q6H PRN PRN Reason: Pain Tamsulosin HCl 0.4 mg [Flomax 0.4 MG] 0.4 mg PO DAILY Citalopram Hydrobromide 20 mg* [ceLEXa 20 MG] 40 mg PO HS Amlodipine Besylate 5 mg [Norvasc 5 mg] 10 mg PO HS Simvastatin 40 mg PO HS Gabapentin 600 mg PO BID Insulin Lispro [Humalog Kwikpen U-100] 100 unit SQ ACHS #1 box Benazepril HCl 40 mg PO HS Methocarbamol [Robaxin] 500 mg PO HS Budesonide/Glycopyr/Formoterol [Breztri Aerosphere Inhaler] 1 puff IH DAILY Diclofenac Sodium 1 ea TOP DAILY Amitriptyline HCl 25 mg [Amitriptyline 25 mg Tablet] 25 mg PO BID Additional Instructions: 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
[2022-06-27] MEDS ORDERED: solu-MEDROL 30 MG, Sterile H2O 10 ml 1 ML IV SCH ×2 (22:00)
== END 2022-06-27 21:05 | disposition home or self-care (01) | DRG 195 ==
LOC: ED 10:37 → MED SURG 12:54 → OBSVTOIN 06-24 08:48
PROVIDERS: ADMIT Family Medicine; ATTEND Family Medicine
DX: J18.9 Pneumonia, unspecified organism (principal); J44.9 Chronic obstructive pulmonary disease, unspecified; E11.22 Type 2 diabetes mellitus with diabetic chronic kidney disease; I12.9 Hypertensive chronic kidney disease with stage 1 through stage 4 chronic kidney disease, or unspecified chronic kidney disease; N18.9 Chronic kidney disease, unspecified; R41.82 Altered mental status, unspecified; W18.30XA Fall on same level, unspecified, initial encounter; D72.829 Elevated white blood cell count, unspecified; R06.09 Other forms of dyspnea; U09.9 Post COVID-19 condition, unspecified; Z79.899 Other long term (current) drug therapy; Z20.828 Contact with and (suspected) exposure to other viral communicable diseases
CPT/HCPCS: 0241U; 36000; 36415; 70450; 70486; 71045; 73090; 80053; 82947; 83036; 83605; 83735; 83880; 84145; 84484; 85025; 85027; 85379; 87086; 93005; 93268; 94640; 94667; 94668; 94762; 96365; 96374; 96375; 99285; G0378; J0456; J0696; J1817; J1940; J2920; J2930; J7609; A9270-GY

== ENCOUNTER 2022-06-29 22:57 | Emergency (ER) | payer MEDICARE ==
--- NOTE | 2022-06-29 23:00 | ERPHSYRPT ---
- History of Present Illness Time Seen by Provider: 06/29/22 23:00 Source: patient Exam Limitations: no limitations Physician History: This is a 61-year-old overweight white male patient of Dr. Hurtado has a history of diabetes and recently was discharged from the hospital for treatment of pneumonia. He was also on intravenous steroids and was given a tapering oral do sudha of steroids which she is still taking. He is been feeling well. However, he has been checking his blood sugar levels. He was told that they would be elevated and he was supposed to receive insulin to give himself in the event his blood sugar levels were high. He is still feeling well and has no specific pain complaints. However he noticed today, that his blood sugar level was reading "high" on his Accu meter. On arrival to the emergency department, his blood sugar Accu-Chek was 426 for us. Patient has a history of prostate issues as well as hyperlipidemia and hypertension. Timing/Duration: today Severity: mild Associated Symptoms: denies symptoms Allergies/Adverse Reactions: No Known Drug Allergies Allergy (Verified 06/29/22 23:30) Home Medications: Amlodipine Besylate 5 mg [Norvasc 5 mg] 10 mg PO HS 05/22/19 [History] Citalopram Hydrobromide 20 mg* [ceLEXa 20 MG] 40 mg PO HS 05/22/19 [History] Gabapentin 600 mg PO BID 05/22/19 [History] Oxycodone / APAP 10/325 mg [Oxycodone-Acetaminophen 10-325] 1 tab PO Q6H PRN 05/22/19 [History] Simvastatin 40 mg PO HS 05/22/19 [History] Tamsulosin HCl 0.4 mg [Flomax 0.4 MG] 0.4 mg PO DAILY 05/22/19 [History] Amitriptyline HCl 25 mg [Amitriptyline 25 mg Tablet] 25 mg PO BID 06/23/22 [History] Benazepril HCl 40 mg PO HS 06/23/22 [History] Budesonide/Glycopyr/Formoterol [Breztri Aerosphere Inhaler] 1 - 2 puff IH DAILY 06/23/22 [History] Diclofenac Sodium 1 ea TOP DAILY 06/23/22 [History] Methocarbamol [Robaxin] 500 mg PO BID 06/23/22 [History] Carvedilol [Coreg] 12.5 mg PO BID 06/29/22 [History] Dutasteride 0.5 MG [Avodart 0.5 MG] 0.5 mg PO HS 06/29/22 [History] Isosorbide Mononitrate 30 mg [Imdur 30 MG] 30 mg PO DAILY 06/29/22 [History] Prednisone 10 mg [Deltasone 10 mg] 0 mg PO BID 06/29/22 [History] Hx Tetanus, Diphtheria Vaccination/Date Given: No Hx Influenza Vaccination/Date Given: Yes Hx Pneumococcal Vaccination/Date Given: Yes Travel Risk - International Travel Have you traveled outside of the country in past 3 weeks: No - Coronavirus Screening Are you exhibiting any of the following symptoms?: No Close contact with a COVID-19 positive Pt in past 14-21 Days: No - Vaccine Status Have you recieved a Covid-19 vaccination: Yes 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[employer]: [email or web address] - Vaccination Dates Date of 2cond Vaccination (if applicable): 2020 - Review of Systems Constitutional: No Symptoms Eyes: No Symptoms Ears, Nose, & Throat: No Symptoms Respiratory: No Symptoms Cardiac: No Symptoms Abdominal/Gastrointestinal: No Symptoms Genitourinary Symptoms: No Symptoms Musculoskeletal: No Symptoms Skin: No Symptoms Neurological: No Symptoms Psychological: No Symptoms Endocrine: No Symptoms Hematologic/Lymphatic: No Symptoms Immunological/Allergic: No Symptoms All Other Systems: Reviewed and Negative - Past Medical History Pertinent Past Medical History: Yes Neurological History: No Pertinent History ENT History: No Pertinent History Cardiac History: High Cholesterol, Hypertension Respiratory History: COPD, Sleep Apnea Endocrine Medical History: Adrenal Insufficiency, Diabetes Type II Musculoskeletal History: Osteoarthritis GI Medical History: Ulcer History: No Pertinent History Psycho-Social History: Depression Male Reproductive Disorders: No Pertinent History Other Medical History: minor heart blockage, no stints. Back surgery. - Past Surgical History Past Surgical History: Yes Neuro Surgical History: No Pertinent History Cardiac: Cardiac Catheterization Respiratory: No Pertinent History Gastrointestinal: Cholecystectomy Genitourinary: No Pertinent History Musculoskeletal: Joint Replacement, Orthopedic Surgery Male Surgical History: No Pertinent History Other Surgical History: gastric bypass. rt knee arthroscopy and replacement, [facility] - Social History Smoking Status: Never smoker Exposure to second hand smoke: No Drug Use: none Patient Lives Alone: No - Nursing Vital Signs Nursing Vital Signs: Initial Vital Signs Temperature 96.9 F 06/29/22 23:20 Pulse Rate 72 06/29/22 23:20 Respiratory Rate 22 06/29/22 23:20 Blood Pressure 98/67 06/29/22 23:20 O2 Sat by Pulse Oximetry 94 L 06/29/22 23:20 Pain Scale Pain Intensity 0 - Physical Exam General Appearance: no apparent distress, alert, obese Eye Exam: PERRL/EOMI, eyes nml inspection Ears, Nose, Throat Exam: normal ENT inspection, moist mucous membranes Neck Exam: normal inspection, non-tender, supple, full range of motion Respiratory Exam: normal breath sounds, lungs clear, airway intact, No chest tenderness, No respiratory distress Cardiovascular Exam: regular rate/rhythm, normal heart sounds, normal peripheral pulses Gastrointestinal/Abdomen Exam: soft, normal bowel sounds, No tenderness Rectal Exam: not done Back Exam: normal inspection, normal range of motion, No CVA tenderness, No vertebral tenderness Extremity Exam: normal inspection, normal range of motion, pelvis stable Neurologic Exam: alert, oriented x 3, cooperative, 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 as tested, normal mood/affect, nml cerebellar function, nml station & gait, sensation nml Skin Exam: normal color, warm, dry Lymphatic Exam: No adenopathy SpO2 Interpretation: normal O2 Delivery: Room Air - Course Nursing assessment & vital signs reviewed: Yes Ordered Tests: Active Orders 24 hr Category Date Time Status IV Insertion STAT Care 06/29/22 23:51 Active BMP Stat Lab 06/29/22 23:51 Completed CBC W DIFF Stat Lab 06/29/22 23:51 Completed POCT GLUCOSE Stat Lab 06/29/22 23:28 Completed Medication Summary Generic Name Dose Route Start Last Admin Trade Name Freq PRN Reason Stop Dose Admin Sodium Chloride 500 mls @ 500 mls/hr 06/30/22 01:23 06/30/22 01:25 Sodium Chloride 0.9% 500 Ml IV 06/30/22 02:22 500 mls/hr .Q1H ONE Administration Discontinued Medications Generic Name Dose Route Start Last Admin Trade Name Freq PRN Reason Stop Dose Admin Sodium Chloride 500 mls @ 500 mls/hr 06/29/22 23:51 06/30/22 00:18 Sodium Chloride 0.9% 500 Ml IV 06/30/22 00:50 500 mls/hr .Q1H ONE Administration Sodium Chloride Confirm 06/30/22 00:17 Sodium Chloride 0.9% 500 Ml Administered 06/30/22 00:18 Dose 500 mls @ ud IV .STK-MED ONE Sodium Chloride Confirm 06/30/22 01:24 Sodium Chloride 0.9% 500 Ml Administered 06/30/22 01:25 Dose 500 mls @ ud IV .STK-MED ONE Insulin Human Regular 8 unit 06/29/22 23:52 06/30/22 00:18 Insulin Regular, Human 1 Unit IV 06/29/22 23:53 8 unit STAT ONE Administration Insulin Human Regular Confirm 06/30/22 00:17 Insulin Regular, Human 1 Unit Administered 06/30/22 00:18 Dose 8 unit .ROUTE .STK-MED ONE Lab/Rad Data: Laboratory Result Diagrams 06/29/22 23:51 06/29/22 23:51 Laboratory Results 06/29/22 06/29/22 06/29/22 Range/Units 23:51 23:51 23:28 WBC 17.7 H (4.0-10.5) x10^3/uL RBC 4.38 (4.1-5.6) x10^6/uL Hgb 11.7 L (12.5-18.0) g/dL Hct 37.6 L (42-50) % MCV 85.8 (78-100) fL MCH 26.7 (26-32) pg MCHC 31.1 L (32-36) g/dL RDW 15.3 H (11.5-14.0) % Plt Count 262 (150-450) x10^3/uL MPV 10.4 (7.5-11.0) fL Gran % 85.2 H (36.0-66.0) % Immature Gran % (Auto) 3.1 H (0.00-0.4) % Nucleat RBC Rel Count 0.0 (0.00-0.1) % Eos # (Auto) 0.15 (0-0.5) x10^3/uL Immature Gran # (Auto) 0.54 H (0.00-0.03) x10^3u/L Absolute Lymphs (auto) 1.05 (1.0-4.6) x10^3/uL Absolute Monos (auto) 0.85 (0.0-1.3) x10^3/uL Absolute Nucleated RBC 0.00 (0.00-0.01) x10^3u/L Lymphocytes % 5.9 L (24.0-44.0) % Monocytes % 4.8 (0.0-12.0) % Eosinophils % 0.8 (0.00-5.0) % Basophils % 0.2 (0.0-0.4) % Absolute Granulocytes 15.05 H (1.4-6.9) x10^3/uL Basophils # 0.04 (0-0.4) x10^3/uL Sodium 127 L (137-145) mmol/L Potassium 5.2 H (3.5-5.1) mmol/L Chloride 96 L (98-107) mmol/L Carbon Dioxide 28 (22-30) mmol/L Anion Gap 8.5 (5-15) MEQ/L BUN 26 H (9-20) mg/dL Creatinine 1.29 H (0.66-1.25) mg/dL Estimated GFR 60.0 ML/MIN Glucose 426 H (74-106) mg/dL POC Glucometer 426 H (74 to 106) mg/dL Calcium 8.7 (8.4-10.2) mg/dL - Progress Progress: improved Progress Note: 06/29/22 23:48 Medical decision making: This patient is diabetic and he was aware that infecti on (pneumonia) and steroid use which he has been on, was going to raise his blood sugar levels. However, he did not receive the outpatient insulin medication he was supposed to receive from Dr. Pichardo who discharged him from the hospital recently. We will provide him with IV hydration and lower his blood sugar levels a bit. We will check his electrolytes and renal function and provide him with low-dose intravenous regular insulin. He will contact Dr. Pichardo tomorrow morning to receive the outpatient medication he was supposed to take at the time of his discharge. 06/30/22 00:29 Patient's leukocytosis is likely secondary to combination of pneumonia and patient currently on steroid tapering dosing. Counseled pt/family regarding: lab results, diagnosis, need for follow-up - Departure Departure Disposition: Home Clinical Impression: Hyperglycemia, Hyponatremia Condition: Stable Critical Care Time: No Referrals: LAWANDA HURTADO [Primary Care Provider] - Follow up/PCP as directed Additional Instructions: Monitor your blood sugar before meals and at bedtime. Call Dr. Schmidt's office tomorrow morning, 06/30/2022, to obtain regular insulin you stated you were supposed to receive to provide yourself with a sliding scale insulin if needed while on your steroid taper.
[2022-06-29] MEDS ORDERED: Sodium Chloride 0.9% 500 ML 500 ML IV ONE (23:51)
[2022-06-29] MEDS ORDERED: HUMULIN R IV ONE (23:52)
[2022-06-30 00:05] LABS: Absolute Neutrophil Ct (ANC) 15.05 x10^3/uL (1.4-6.9); Basophil (Absolute #) 0.04 x10^3/uL (0-0.4); Eosinophil % 0.8 % (0.00-5.0); Eosinophil (Absolute #) 0.15 x10^3/uL (0-0.5); Hematocrit 37.6 % (42-50); Hemoglobin 11.7 g/dL (12.5-18.0); Lymphocyte (Absolute #) 1.05 x10^3/uL (1.0-4.6); Lymphocytes % 5.9 % (24.0-44.0); Mean Cell Volume 85.8 fL (78-100); Mean Corpuscular Hemoglobin 26.7 pg (26-32); Mean Corpuscular Hgb Concent. 31.1 g/dL (32-36); Mean Platelet Volume 10.4 fL (7.5-11.0); Monocyte (Absolute #) 0.85 x10^3/uL (0.0-1.3); Monocytes % 4.8 % (0.0-12.0); Neutrophil % 85.2 % (36.0-66.0); Platelet Count 262 x10^3/uL (150-450); Red Blood Count 4.38 x10^6/uL (4.1-5.6); Red Cell Distribution Width 15.3 % (11.5-14.0); White Blood Count 17.7 x10^3/uL (4.0-10.5)
[2022-06-30 00:14] VITALS: O2SAT 95
[2022-06-30] MEDS ORDERED: HUMULIN R ONE (00:17)
[2022-06-30] MEDS ORDERED: Sodium Chloride 0.9% 500 ML 500 ML IV ONE ×3 (00:17→01:24)
[2022-06-30 00:34] LABS: ANION GAP 8.5 MEQ/L (5-15); Calcium 8.7 mg/dL (8.4-10.2); Creatinine 1 1.29 mg/dL (0.66-1.25); Potassium 5.2 mmol/L (3.5-5.1)
[2022-06-30 02:05] VITALS: BP 120/82; PULSE 74
== END 2022-06-30 02:07 | disposition home or self-care (01) ==
LOC: ED 22:57
DX: E11.65 Type 2 diabetes mellitus with hyperglycemia (principal); E87.1 Hypo-osmolality and hyponatremia; E78.5 Hyperlipidemia, unspecified; I10 Essential (primary) hypertension; Z79.52 Long term (current) use of systemic steroids; Z79.899 Other long term (current) drug therapy
CPT/HCPCS: 36000; 36415; 80048; 82947; 85025; 96374; 99284; J1815

== ENCOUNTER 2022-08-13 15:03 | Inpatient (IN) | payer MEDICARE ==
[2022-08-13] MEDS ORDERED: BABY ASPIRIN 81 MG CHEW PO ONE (15:36)
[2022-08-13] MEDS ORDERED: Nitrostat 0.4 MG (ED) SL ONE ×2 (15:36→16:09)
[2022-08-13] MEDS ORDERED: Sodium Chloride 0.9% 1000 ML 1,000 ML IV SCH (15:45)
--- NOTE | 2022-08-13 15:45 | ERPHSYRPT ---
- History of Present Illness Time Seen by Provider: 08/13/22 15:40 Historian: patient, family Exam Limitations: no limitations Patient Subjective Stated Complaint: SOB Triage Nursing Assessment: Patient ambulated back to ED and transferred self to bed. Patient A+O X3. Patient's skin pale, warm and dry. Patient complains of SOB that has gotten worse the past two days. Lungs noted to be diminished throughout. Patient complains of non productive cough. Patient states he has a headache and is weak. Patient complains of back pain 5/10. Physician History: pt has felt achy all over for a few days and now with CP and SOBreath - known CAD from Dr. Sherrie brown and was near another vessel so opted not to stent at that time due to collateral risk . Pt saw his Pulmonary DrSuzi ( [place]) recently and his primary who feel problem mainly cardiac and less his lungs per pt. Independent interview with family member to collaborate Hx. chest clear ht reg without M . Abd soft nontender without peritoneal signs or masses. Ext without tino, redness, and neg homans bilaterally. Timing/Duration: today Activities at Onset: none Quality: dullness, fullness, pressure, tightness Location: substernal, central Chest Pain Radiation: no radiation Severity of Pain-Max: moderate Severity of Pain-Current: moderate Modifying Factors: Improves With: nothing Associated Symptoms: cough Prior Chest Pain/Cardiac Workup: cardiac cath, recently seen/treated Nitro Today/Relief: 0.4 mg x 1, provided by ED Aspirin Treatment Today: 81 mg x 4, provided by ED Allergies/Adverse Reactions: No Known Drug Allergies Allergy (Verified 08/13/22 15:15) Home Medications: Amlodipine Besylate 5 mg [Norvasc 5 mg] 10 mg PO HS 05/22/19 [History] Citalopram Hydrobromide 20 mg* [ceLEXa 20 MG] 40 mg PO HS 05/22/19 [History] Gabapentin 600 mg PO BID 05/22/19 [History] Oxycodone / APAP 10/325 mg [Oxycodone-Acetaminophen 10-325] 1 tab PO Q6H PRN 05/22/19 [History] Simvastatin 40 mg PO HS 05/22/19 [History] Tamsulosin HCl 0.4 mg [Flomax 0.4 MG] 0.4 mg PO DAILY 05/22/19 [History] Amitriptyline HCl 25 mg [Amitriptyline 25 mg Tablet] 25 mg PO BID 06/23/22 [H istory] Benazepril HCl 40 mg PO HS 06/23/22 [History] Budesonide/Glycopyr/Formoterol [Breztri Aerosphere Inhaler] 1 - 2 puff IH DAILY 06/23/22 [History] Diclofenac Sodium 1 ea TOP DAILY 06/23/22 [History] Methocarbamol [Robaxin] 500 mg PO BID 06/23/22 [History] Carvedilol [Coreg] 12.5 mg PO BID 06/29/22 [History] Dutasteride 0.5 MG [Avodart 0.5 MG] 0.5 mg PO HS 06/29/22 [History] Isosorbide Mononitrate 30 mg [Imdur 30 MG] 30 mg PO DAILY 06/29/22 [History] Prednisone 10 mg [Deltasone 10 mg] 0 mg PO BID 06/29/22 [History] Hx Tetanus, Diphtheria Vaccination/Date Given: No Hx Influenza Vaccination/Date Given: Yes Hx Pneumococcal Vaccination/Date Given: Yes Immunizations Up to Date: Yes Travel Risk - International Travel Have you traveled outside of the country in past 3 weeks: No - Coronavirus Screening Are you exhibiting any of the following symptoms?: No Close contact with a COVID-19 positive Pt in past 14-21 Days: No - Vaccine Status Have you recieved a Covid-19 vaccination: Yes 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: [employer] - Vaccination Dates Date of 2cond Vaccination (if applicable): 2020 - Review of Systems Constitutional: No Fever, No Chills Eyes: No Symptoms Ears, Nose, & Throat: No Symptoms Respiratory: Cough, Dyspnea Cardiac: Chest Pain, No Edema, No Syncope Abdominal/Gastrointestinal: No Abdominal Pain, No Nausea, No Vomiting, No Diarrhea Genitourinary Symptoms: No Dysuria Musculoskeletal: No Back Pain, No Neck Pain Skin: No Rash Neurological: No Dizziness, No Focal Weakness, No Sensory Changes Psychological: No Symptoms Endocrine: No Symptoms Hematologic/Lymphatic: No Symptoms Immunological/Allergic: No Symptoms All Other Systems: Reviewed and Negative - Past Medical History Pertinent Past Medical History: Yes Neurological History: No Pertinent History ENT History: No Pertinent History Cardiac History: High Cholesterol, Hypertension Respiratory History: COPD, Sleep Apnea Endocrine Medical History: Adrenal Insufficiency, Diabetes Type II Musculoskeletal History: Osteoarthritis GI Medical History: Ulcer History: No Pertinent History Psycho-Social History: Depression Male Reproductive Disorders: No Pertinent History Other Medical History: minor heart blockage, no stints. Back surgery. - Past Surgical History Past Surgical History: Yes Neuro Surgical History: No Pertinent History Cardiac: Cardiac Catheterization Respiratory: No Pertinent History Gastrointestinal: Cholecystectomy Genitourinary: No Pertinent History Musculoskeletal: Joint Replacement, Orthopedic Surgery Male Surgical History: No Pertinent History Other Surgical History: gastric bypass. rt knee arthroscopy and replacement, VINCENT - Social History Smoking Status: Never smoker Exposure to second hand smoke: No Drug Use: none Patient Lives Alone: No - Nursing Vital Signs Nursing Vital Signs: Initial Vital Signs Temperature 97.8 F 08/13/22 15:15 Pulse Rate 101 H 08/13/22 15:15 Respiratory Rate 15 08/13/22 15:15 Blood Pressure 142/102 08/13/22 15:15 O2 Sat by Pulse Oximetry 92 L 08/13/22 15:15 Pain Scale Pain Intensity 6 - Physical Exam General Appearance: no apparent distress, alert Eye Exam: PERRL/EOMI, eyes nml inspection Ears, Nose, Throat Exam: normal ENT inspection, moist mucous membranes Neck Exam: normal inspection, non-tender, supple, full range of motion Respiratory Exam: normal breath sounds, lungs clear, No respiratory distress Cardiovascular Exam: regular rate/rhythm, normal heart sounds Gastrointestinal/Abdomen Exam: soft, No tenderness, No mass Rectal Exam: deferred Back Exam: normal inspection, No CVA tenderness, No vertebral tenderness Extremity Exam: normal inspection, normal range of motion Neurologic Exam: alert, oriented x 3, cooperative, normal mood/affect, sensation nml, No motor deficits Skin Exam: normal color, warm, dry SpO2 Interpretation: borderline oxygenation SpO2: 93 O2 Delivery: Room Air - Course Nursing assessment & vital signs reviewed: Yes EKG Interpreted by Me: Sinus Rhythm, NORMAL AXIS, NORMAL INTERVALS, Non-specific ST Changes, Other (Q in 3 ) - Radiology Exams Chest X-ray Interpretation: Reviewed by me, Teleradiologist Report (Dr Chao), Infiltrates Ordered Tests: Active Orders 24 hr Category Date Time Status Hand Coremaker STAT Care 08/13/22 15:37 Active EKG-ER Only STAT Care 08/13/22 15:36 Active IV Insertion STAT Care 08/13/22 15:36 Active Pulse Oximetry (ED) STAT Care 08/13/22 15:36 Active CHEST 1 VIEW (PORTABLE) Stat Exams 08/13/22 15:36 Completed CBC W DIFF Stat Lab 08/13/22 15:42 Completed CMP Stat Lab 08/13/22 15:42 Completed D-DIMER QUANTITATIVE Stat Lab 08/13/22 15:42 Completed NT PRO BNP Stat Lab 08/13/22 15:42 Completed POCT GLUCOSE Stat Lab 08/13/22 15:29 Completed TROPONIN Q4H Lab 08/13/22 15:42 Completed TROPONIN Q4H Lab 08/13/22 19:25 Completed TROPONIN Q4H Lab 08/13/22 23:45 Ordered Medication Summary Generic Name Dose Route Start Last Admin Trade Name Freq PRN Reason Stop Dose Admin Sodium Chloride 1,000 mls @ 50 mls/hr 08/13/22 15:45 08/13/22 16:17 Sodium Chloride 0.9% 1000 Ml IV 09/12/22 15:44 50 mls/hr .Q20H LOPEZ Administration Discontinued Medications Generic Name Dose Route Start Last Admin Trade Name Freq PRN Reason Stop Dose Admin Aspirin 324 mg 08/13/22 15:36 08/13/22 16:16 Aspirin 81 Mg Tab.Chew PO 08/13/22 15:37 324 mg STAT ONE Administration Aspirin Confirm 08/13/22 16:09 Aspirin 81 Mg Tab.Chew Administered 08/13/22 16:10 Dose 324 mg .ROUTE .STK-MED ONE Hydromorphone HCl 1 mg 08/13/22 21:10 Hydromorphone 1 Mg/1ml Inj 1 Mg/Ml Syringe IV 08/13/22 21:11 STAT ONE Ceftriaxone Sodium/Dextrose 1 g in 50 mls @ 100 mls/hr 08/13/22 18:59 08/13/22 20:16 Rocephin 1 Gm-D5w 50 Ml Bag IV 08/13/22 19:28 Infused STAT STA Infusion Ceftriaxone Sodium/Dextrose Confirm 08/13/22 19:32 Rocephin 1 Gm-D5w 50 Ml Bag Administered 08/13/22 19:33 Dose 1 g in 50 mls @ ud IV .STK-MED ONE Morphine Sulfate 4 mg 08/13/22 19:00 08/13/22 19:33 Morphine Sulfate 4 Mg/Ml Injection IV 08/13/22 19:01 4 mg STAT ONE Administration Morphine Sulfate Confirm 08/13/22 19:32 Morphine Sulfate 4 Mg/Ml Injection Administered 08/13/22 19:33 Dose 4 mg .ROUTE .STK-MED ONE Nitroglycerin 0.4 mg 08/13/22 15:36 08/13/22 16:17 Nitroglycerin 0.4 Mg (Ed) 0.4 Mg Tab.Subl SL 08/13/22 15:37 0.4 mg STAT ONE Administration Nitroglycerin Confirm 08/13/22 16:09 Nitroglycerin 0.4 Mg (Ed) 0.4 Mg Tab.Subl Administered 08/13/22 16:10 Dose 0.4 mg SL .STK-MED ONE Lab/Rad Data: Laboratory Result Diagrams 08/13/22 15:42 08/13/22 15:42 Laboratory Results 08/13/22 08/13/22 08/13/22 Range/Units Unknown 19:25 15:42 WBC (4.0-10.5) x10^3/uL RBC (4.1-5.6) x10^6/uL Hgb (12.5-18.0) g/dL Hct (42-50) % MCV (78-100) fL MCH (26-32) pg MCHC (32-36) g/dL RDW (11.5-14.0) % Plt Count (150-450) x10^3/uL MPV (7.5-11.0) fL Gran % (36.0-66.0) % Immature Gran % (Auto) (0.00-0.4) % Nucleat RBC Rel Count (0.00-0.1) % Eos # (Auto) (0-0.5) x10^3/uL Immature Gran # (Auto) (0.00-0.03) x10^3u/L Absolute Lymphs (auto) (1.0-4.6) x10^3/uL Absolute Monos (auto) (0.0-1.3) x10^3/uL Absolute Nucleated RBC (0.00-0.01) x10^3u/L Lymphocytes % (24.0-44.0) % Monocytes % (0.0-12.0) % Eosinophils % (0.00-5.0) % Basophils % (0.0-0.4) % Absolute Granulocytes (1.4-6.9) x10^3/uL Basophils # (0-0.4) x10^3/uL D-Dimer (0.0-0.50) mg/L Sodium (137-145) mmol/L Potassium (3.5-5.1) mmol/L Chloride (98-107) mmol/L Carbon Dioxide (22-30) mmol/L Anion Gap (5-15) MEQ/L BUN (9-20) mg/dL Creatinine (0.66-1.25) mg/dL Estimated GFR ML/MIN Glucose (74-106) mg/dL POC Glucometer (74 to 106) mg/dL Calcium (8.4-10.2) mg/dL Total Bilirubin (0.2-1.3) mg/dL AST (17-59) U/L ALT (0-50) U/L Alkaline Phosphatase (38-126) U/L Troponin I < 0.012 < 0.012 (0.000-0.034) ng/mL NT-Pro-B Natriuret Pep (0-900) pg/mL Serum Total Protein (6.3-8.2) g/dL Albumin (3.5-5.0) g/dL Influenza Type A Ag NEGATIVE (NEGATIVE) Influenza Type B Ag NEGATIVE (NEGATIVE) RSV (PCR) NEGATIVE (Negative) SARS-CoV-2 (PCR) NEGATIVE (NEGATIVE) 08/13/22 08/13/22 08/13/22 Range/Units 15:42 15:42 15:42 WBC 23.8 H (4.0-10.5) x10^3/uL RBC 4.52 (4.1-5.6) x10^6/uL Hgb 12.3 L (12.5-18.0) g/dL Hct 39.3 L (42-50) % MCV 86.9 (78-100) fL MCH 27.2 (26-32) pg MCHC 31.3 L (32-36) g/dL RDW 15.5 H (11.5-14.0) % Plt Count 239 (150-450) x10^3/uL MPV 11.3 H (7.5-11.0) fL Gran % 83.0 H (36.0-66.0) % Immature Gran % (Auto) 0.5 H (0.00-0.4) % Nucleat RBC Rel Count 0.0 (0.00-0.1) % Eos # (Auto) 0.37 (0-0.5) x10^3/uL Immature Gran # (Auto) 0.12 H (0.00-0.03) x10^3u/L Absolute Lymphs (auto) 1.79 (1.0-4.6) x10^3/uL Absolute Monos (auto) 1.70 H (0.0-1.3) x10^3/uL Absolute Nucleated RBC 0.00 (0.00-0.01) x10^3u/L Lymphocytes % 7.5 L (24.0-44.0) % Monocytes % 7.1 (0.0-12.0) % Eosinophils % 1.6 (0.00-5.0) % Basophils % 0.3 (0.0-0.4) % Absolute Granulocytes 19.73 H (1.4-6.9) x10^3/uL Basophils # 0.08 (0-0.4) x10^3/uL D-Dimer 0.37 (0.0-0.50) mg/L Sodium 132 L (137-145) mmol/L Potassium 4.4 (3.5-5.1) mmol/L Chloride 100 (98-107) mmol/L Carbon Dioxide 25 (22-30) mmol/L Anion Gap 10.8 (5-15) MEQ/L BUN 18 (9-20) mg/dL Creatinine 1.07 (0.66-1.25) mg/dL Estimated GFR > 60.0 ML/MIN Glucose 222 H (74-106) mg/dL POC Glucometer (74 to 106) mg/dL Calcium 9.1 (8.4-10.2) mg/dL Total Bilirubin 0.80 (0.2-1.3) mg/dL AST 26 (17-59) U/L ALT 23 (0-50) U/L Alkaline Phosphatase 117 (38-126) U/L Troponin I (0.000-0.034) ng/mL NT-Pro-B Natriuret Pep 53.1 (0-900) pg/mL Serum Total Protein 7.8 (6.3-8.2) g/dL Albumin 4.2 (3.5-5.0) g/dL Influenza Type A Ag (NEGATIVE) Influenza Type B Ag (NEGATIVE) RSV (PCR) (Negative) SARS-CoV-2 (PCR) (NEGATIVE) 08/13/22 Range/Units 15:29 WBC (4.0-10.5) x10^3/uL RBC (4.1-5.6) x10^6/uL Hgb (12.5-18.0) g/dL Hct (42-50) % MCV (78-100) fL MCH (26-32) pg MCHC (32-36) g/dL RDW (11.5-14.0) % Plt Count (150-450) x10^3/uL MPV (7.5-11.0) fL Gran % (36.0-66.0) % Immature Gran % (Auto) (0.00-0.4) % Nucleat RBC Rel Count (0.00-0.1) % Eos # (Auto) (0-0.5) x10^3/uL Immature Gran # (Auto) (0.00-0.03) x10^3u/L Absolute Lymphs (auto) (1.0-4.6) x10^3/uL Absolute Monos (auto) (0.0-1.3) x10^3/uL Absolute Nucleated RBC (0.00-0.01) x10^3u/L Lymphocytes % (24.0-44.0) % Monocytes % (0.0-12.0) % Eosinophils % (0.00-5.0) % Basophils % (0.0-0.4) % Absolute Granulocytes (1.4-6.9) x10^3/uL Basophils # (0-0.4) x10^3/uL D-Dimer (0.0-0.50) mg/L Sodium (137-145) mmol/L Potassium (3.5-5.1) mmol/L Chloride (98-107) mmol/L Carbon Dioxide (22-30) mmol/L Anion Gap (5-15) MEQ/L BUN (9-20) mg/dL Creatinine (0.66-1.25) mg/dL Estimated GFR ML/MIN Glucose (74-106) mg/dL POC Glucometer 209 H (74 to 106) mg/dL Calcium (8.4-10.2) mg/dL Total Bilirubin (0.2-1.3) mg/dL AST (17-59) U/L ALT (0-50) U/L Alkaline Phosphatase (38-126) U/L Troponin I (0.000-0.034) ng/mL NT-Pro-B Natriuret Pep (0-900) pg/mL Serum Total Protein (6.3-8.2) g/dL Albumin (3.5-5.0) g/dL Influenza Type A Ag (NEGATIVE) Influenza Type B Ag (NEGATIVE) RSV (PCR) (Negative) SARS-CoV-2 (PCR) (NEGATIVE) - Progress Progress: improved, re-examined Air Movement: good Progress Note: 08/13/22 21:19 discussed results with pt and family and AB IV adn they wish to proceed. COnsulted with Dr. Torres and all agree best to place pt in on obs and follow trops and treat pneumonia. Blood Culture(s) Obtained: No Antibiotics given: No Discussed with : Franck Will see patient in: hospital (observation) Counseled pt/family regarding: lab results, diagnosis, need for follow-up, rad results - Departure Departure Disposition: Observation Clinical Impression: Right middle lobe pneumonia, Leukocytosis, Chest pain Condition: Good Critical Care Time: No Referrals: LAWANDA ELMORE [Primary Care Provider] - Follow up/PCP as directed
[2022-08-13 15:47] LABS: Absolute Neutrophil Ct (ANC) 19.73 x10^3/uL (1.4-6.9); BASOPHIL % 0.3 % (0.0-0.4); Basophil (Absolute #) 0.08 x10^3/uL (0-0.4); Eosinophil % 1.6 % (0.00-5.0); Eosinophil (Absolute #) 0.37 x10^3/uL (0-0.5); Hematocrit 39.3 % (42-50); Hemoglobin 12.3 g/dL (12.5-18.0); IMMATURE GRAN # 0.12 x10^3u/L (0.00-0.03); IMMATURE GRAN % 0.5 % (0.00-0.4); Lymphocyte (Absolute #) 1.79 x10^3/uL (1.0-4.6); Lymphocytes % 7.5 % (24.0-44.0); Mean Cell Volume 86.9 fL (78-100); Mean Corpuscular Hemoglobin 27.2 pg (26-32); Mean Corpuscular Hgb Concent. 31.3 g/dL (32-36); Mean Platelet Volume 11.3 fL (7.5-11.0); Monocytes % 7.1 % (0.0-12.0); Platelet Count 239 x10^3/uL (150-450); Red Blood Count 4.52 x10^6/uL (4.1-5.6); Red Cell Distribution Width 15.5 % (11.5-14.0); White Blood Count 23.8 x10^3/uL (4.0-10.5)
--- NOTE | 2022-08-13 15:58 | XRAY ---
Indication: Short of breath and bodyaches. Comparison: June 25, 2022 Portable chest better inflated again with diffuse right lung groundglass airspace disease without consolidation/large effusion. Remaining heart and left lung unremarkable. No new cardiopulmonary abnormalities.
[2022-08-13] MEDS ORDERED: BABY ASPIRIN 81 MG CHEW ONE (16:09)
[2022-08-13] MEDS ORDERED: Sodium Chloride 0.9% 1000 ML 1,000 ML ONE (16:09)
[2022-08-13 16:20] LABS: ALBUMIN 4.2 g/dL (3.5-5.0); ALKALINE PHOSPHATASE 117 U/L (38-126); ANION GAP 10.8 MEQ/L (5-15); BLOOD UREA NITROGEN 18 mg/dL (9-20); CHLORIDE 100 mmol/L (98-107); Calcium 9.1 mg/dL (8.4-10.2); Carbon Dioxide 25 mmol/L (22-30); Creatinine 1 1.07 mg/dL (0.66-1.25); EST GLOMERULAR FILTRATION RATE > 60.0 ML/MIN; Glucose 222 mg/dL (74-106); NT PRO BNP 53.1 pg/mL (0-900); Potassium 4.4 mmol/L (3.5-5.1); SGOT/AST 26 U/L (17-59); SGPT/ALT 23 U/L (0-50); SODIUM 132 mmol/L (137-145); Total Protein 7.8 g/dL (6.3-8.2)
[2022-08-13 16:39] LABS: INFLUENZA A NEGATIVE (NEGATIVE); INFLUENZA B NEGATIVE (NEGATIVE); RESPIRATORY SYNCTIAL VIRUS NEGATIVE (Negative); SARS-CoV-2 Xpert Express NEGATIVE (NEGATIVE)
[2022-08-13] MEDS ORDERED: ROCEPHIN 1 Gm-D5w 50 ml Bag** 1 G/50 ML IVPB IV STA (18:59)
[2022-08-13] MEDS ORDERED: MORPHINE SULFATE 4 MG INJ IV ONE (19:00)
[2022-08-13] MEDS ORDERED: ROCEPHIN 1 Gm-D5w 50 ml Bag** 1 G/50 ML IVPB IV ONE (19:32)
[2022-08-13] MEDS ORDERED: MORPHINE SULFATE 4 MG INJ ONE (19:32)
[2022-08-13] MEDS ORDERED: Hydromorphone 1 mg/ml Injection IV ONE (21:10)
[2022-08-13] MEDS ORDERED: Hydromorphone 1 mg/ml Injection ONE (21:40)
[2022-08-13] MEDS ORDERED: MILK OF MAGNESIA 30 ML PO PRN (22:33)
[2022-08-13] MEDS ORDERED: Zofran 4 MG/2 ML VIAL IV PRN (22:33)
[2022-08-13] MEDS ORDERED: MAALOX ES 30 ML UNIT DOSE PO PRN (22:33)
[2022-08-13] MEDS ORDERED: Senokot-S Tablet PO PRN (22:33)
[2022-08-13] MEDS ORDERED: DUONEB 0.5-3 MG/3 ml Neb IH SCH (23:00)
[2022-08-14] MEDS ORDERED: NORVASC 5 MG ONE (00:37)
[2022-08-14] MEDS: NORVASC 5 MG PO SCH ×2 (00:41→20:36)
[2022-08-14] MEDS: NEURONTIN PO SCH ×3 (00:41→20:36)
[2022-08-14] MEDS: COREG 12.5 MG PO SCH ×3 (00:42→20:38)
[2022-08-14] MEDS ORDERED: solu-MEDROL ONE ×3 (00:49→17:00)
[2022-08-14] MEDS: Pepcid 20 MG VIAL IV SCH ×3 (01:02→20:39)
[2022-08-14] MEDS: solu-MEDROL 60 MG, Sterile H2O 10 ml 2 ML IV SCH ×8 (01:02→17:41)
[2022-08-14] MEDS: TYLENOL 325 MG PO PRN ×2 (01:51→20:35)
[2022-08-14] MEDS ORDERED: PROVENTIL 2.5 MG/3 ML NEB IH PRN (02:29)
[2022-08-14] MEDS ORDERED: Sodium Chloride 0.9% 1000 ML 1,000 ML ONE (05:32)
[2022-08-14 06:06] LABS: Hematocrit 36.7 % (42-50); Hemoglobin 11.7 g/dL (12.5-18.0); Mean Cell Volume 86.2 fL (78-100); Mean Corpuscular Hemoglobin 27.5 pg (26-32); Mean Corpuscular Hgb Concent. 31.9 g/dL (32-36); Mean Platelet Volume 11.7 fL (7.5-11.0); Platelet Count 239 x10^3/uL (150-450); Red Blood Count 4.26 x10^6/uL (4.1-5.6); Red Cell Distribution Width 15.9 % (11.5-14.0); White Blood Count 17.1 x10^3/uL (4.0-10.5)
[2022-08-14 06:52] LABS: ALBUMIN 3.9 g/dL (3.5-5.0); ALKALINE PHOSPHATASE 115 U/L (38-126); ANION GAP 8.4 MEQ/L (5-15); BLOOD UREA NITROGEN 17 mg/dL (9-20); CHLORIDE 103 mmol/L (98-107); Carbon Dioxide 28 mmol/L (22-30); Cholesterol 146 mg/dL (50-200); Creatinine 1 1.12 mg/dL (0.66-1.25); EST GLOMERULAR FILTRATION RATE > 60.0 ML/MIN; Glucose 300 mg/dL (74-106); HDL CHOLESTEROL 44 mg/dL (40-60); LDL, DIRECT 63 mg/dL (30-100); MAGNESIUM 2.3 mg/dL (1.6-2.3); Potassium 5.4 mmol/L (3.5-5.1); Risk Ratio 3.3; SGOT/AST 20 U/L (17-59); SGPT/ALT 20 U/L (0-50); SODIUM 134 mmol/L (137-145); TRIGLYCERIDE 151 mg/dL (30-150); Total Protein 7.3 g/dL (6.3-8.2)
[2022-08-14] MEDS ORDERED: HUMALOG ONE (07:14)
[2022-08-14] MEDS: PATIENT OWN MEDICATION IH SCH ×2 (07:30→21:52)
[2022-08-14] MEDS: Hydromorphone 1 mg/ml Injection IV PRN ×4 (07:41→21:25)
[2022-08-14] MEDS: HUMULIN R SQ PRN ×4 (08:53→21:25)
[2022-08-14] MEDS: Ecotrin 325 MG PO SCH (09:10)
[2022-08-14] MEDS: Flomax 0.4 MG PO SCH (09:10)
[2022-08-14] MEDS: ENOXAPARIN SODIUM SQ SCH (09:11)
[2022-08-14] MEDS: Lotensin PO SCH (09:21)
[2022-08-14] MEDS ORDERED: Zithromax 500 MG/ 250 ML NaCl Premix 500 MG/250 ML IVPB IV SCH (10:00)
[2022-08-14] MEDS ORDERED: NORVASC 5 MG PO SCH (10:00)
[2022-08-14] MEDS ORDERED: CLARITIN 10 MG PO PRN (14:10)
[2022-08-14] MEDS ORDERED: NON-FORMULARY ITEM (Cyanocobalamin (Vitamin B-12) [Vitamin B-12] 1,000 MCG Capsule) PO SCH (14:15)
[2022-08-14] MEDS ORDERED: Vitamin B-12 500 MCG PO SCH (14:30)
--- NOTE | 2022-08-14 17:26 | PCM.HP ---
History of Present Illness - Chief Complaint Chief Complaint: Pneumonia History of Present Illness: is a 61 year old male pt of Dr. Taylor with CAD, COPD, HLD, adrenal insufficiency, HTN, DMII, NICOL, and PUD who was admitted through ER with CP and PNA. CXR showed R lung ground glass opacities - pt was started on zithromax and IV solumedrol, 60mg q6h. WBC 17.1. Troponins have been neg x 2. EKG without acute ST changes. Pt saw Dr. Coyne, pulmonology, 5d ago after being on steroids x 2 weeks - said he sounded great and that it was OK for Dr. Doyle to do stents. Then early Tue morning the pt hurt all over, was SOB, had a "brain fog" and couldn't recognize his qife. He quickly improved, but had substernal/L sided chest pain radiating to his back, 8/10. Had N/diaphoresis/BIRD and SOB. He has SOB daily, related to walking. He has breath issues for months, GUSMAN with 10-15 steps. Has been told his color is bad recently. - Review of Systems Constitutional: Other (sweating here in hospital) Ears, Nose, & Throat: Hoarse Cardiac: Edema (chronic, LE (s/p total knee bilat)) Genitourinary Symptoms: Dysuria Neurological: Other (memory worse x 6 mo) All Other Systems: Reviewed and Negative Medications & Allergies Home Medications: Home Medication List Amlodipine Besylate 5 mg [Norvasc 5 mg] 10 mg PO HS 05/22/19 [History Confirmed 08/13/22] Citalopram Hydrobromide 20 mg* [ceLEXa 20 MG] 40 mg PO HS 05/22/19 [History Confirmed 08/13/22] Gabapentin 600 mg PO BID 05/22/19 [History Confirmed 08/13/22] Oxycodone / APAP 10/325 mg [Oxycodone-Acetaminophen 10-325] 1 tab PO QID PRN PRN 05/22/19 [History Confirmed 08/13/22] Simvastatin 40 mg PO HS 05/22/19 [History Confirmed 08/13/22] Tamsulosin HCl 0.4 mg [Flomax 0.4 MG] 0.4 mg PO DAILY 05/22/19 [History Confirmed 08/13/22] Amitriptyline HCl 25 mg [Amitriptyline 25 mg Tablet] 25 mg PO HS 06/23/22 [History Confirmed 08/13/22] Carvedilol [Coreg] 12.5 mg PO BID 06/29/22 [History Confirmed 08/13/22] Dutasteride 0.5 MG [Avodart 0.5 MG] 0.5 mg PO HS 06/29/22 [History Confirmed 08/13/22] Cyanocobalamin (Vitamin B-12) [Vitamin B-12] 1,000 mg PO UD 08/13/22 [History Confirmed 08/13/22] Dulaglutide [Trulicity] 0.75 mg SQ WEEKLY 08/13/22 [History Confirmed 08/13/22] Ferrous Sulfate [Iron] 325 mg PO BID 08/13/22 [History Confirmed 08/13/22] Loratadine 10 mg [Claritin 10 mg] 10 mg PO UD PRN 08/13/22 [History Confirmed 08/13/22] Testosterone Cypionate 200 mg IM UD 08/13/22 [History Confirmed 08/13/22] Allergies/Adverse Reactions: Allergies Allergy/AdvReac Type Severity Reaction Status Date / Time No Known Drug Allergies Allergy Verified 08/13/22 15:15 - Past Medical History Past Medical History: Yes Neurological History: No Pertinent History ENT History: No Pertinent History Cardiac History: Coronary Artery Disease, High Cholesterol, Hypertension Respiratory History: COPD, Sleep Apnea Endocrine Medical History: Adrenal Insufficiency, Diabetes Type II Musculoskelatal History: Osteoarthritis GI Medical History: Ulcer History: No Pertinent History Pyscho-Social History: Depression Male Reproductive Disorders: Prostate Problems Comment: minor heart blockage, no stints. Back surgery. - Past Surgical History Past Surgical History: Yes Neuro Surgical History: No Pertinent History Cardiac History: Cardiac Catheterization Respiratory Surgery: No Pertinent History GI Surgical History: Cholecystectomy Genitourinary Surgical Hx: No Pertinent History Musculskeletal Surgical Hx: Joint Replacement, Orthopedic Surgery Male Surgical History: No Pertinent History Other Surgical History: gastric bypass. rt knee arthroscopy and replacement, VINCENT - Social History Smoking Status: Never smoker Exposure to second hand smoke: No Alcohol: None Drug Use: none - Physical Exam Vital Signs: Vital Signs - 24 hr Temp Pulse Resp BP Pulse Ox 08/14/22 16:00 97.5 F 87 19 137/79 94 L 08/14/22 12:00 97.0 F 80 19 124/70 93 L 08/14/22 08:16 85 16 95 08/14/22 08:00 97 F 83 19 134/75 96 08/14/22 03:50 96.6 F 87 20 147/70 95 08/14/22 01:15 87 20 95 08/14/22 00:00 95 08/13/22 22:46 96.6 F 97 H 20 147/70 95 08/13/22 21:27 92 H 20 105/76 95 08/13/22 21:20 93 L 08/13/22 20:11 99 H 25 H 94/78 95 08/13/22 19:00 93 H 18 129/83 96 08/13/22 18:00 94 H 20 139/84 96 Oxygen-Last 24 hours Oxygen Flowrate (L/min)-RT 2 General Appearance: no apparent distress, alert, obese Neurologic Exam: oriented x 3, cooperative Eye Exam: eyes nml inspection Ears, Nose, Throat Exam: moist mucous membranes Neck Exam: normal inspection Respiratory Exam: normal breath sounds, diminished breath sounds (fair to good air exchange), crackles/rales (RUL, faint), No rhonchi, No wheezing Cardiovascular Exam: regular rate/rhythm, normal heart sounds, No murmur Gastrointestinal/Abdomen Exam: soft, normal bowel sounds, No tenderness, No distention, No mass, No guarding, No rebound Back Exam: normal inspection, No rash Extremity Exam: normal inspection, No pedal edema, No swelling Skin Exam: other (LUE with approx 5mm annular erythematous lesions (excoriated?)) Results - Labs Lab/Micro Results: Lab Results-Last 24 Hours 08/13/22 08/13/22 08/14/22 Range/Units 19:25 23:45 05:23 WBC 17.1 H (4.0-10.5) x10^3/uL RBC 4.26 (4.1-5.6) x10^6/uL Hgb 11.7 L (12.5-18.0) g/dL Hct 36.7 L (42-50) % MCV 86.2 (78-100) fL MCH 27.5 (26-32) pg MCHC 31.9 L (32-36) g/dL RDW 15.9 H (11.5-14.0) % Plt Count 239 (150-450) x10^3/uL MPV 11.7 H (7.5-11.0) fL Sodium (137-145) mmol/L Potassium (3.5-5.1) mmol/L Chloride (98-107) mmol/L Carbon Dioxide (22-30) mmol/L Anion Gap (5-15) MEQ/L BUN (9-20) mg/dL Creatinine (0.66-1.25) mg/dL Estimated GFR ML/MIN Glucose (74-106) mg/dL POC Glucometer (74 to 106) mg/dL Calcium (8.4-10.2) mg/dL Magnesium (1.6-2.3) mg/dL Total Bilirubin (0.2-1.3) mg/dL AST (17-59) U/L ALT (0-50) U/L Alkaline Phosphatase (38-126) U/L Troponin I < 0.012 < 0.012 (0.000-0.034) ng/mL Serum Total Protein (6.3-8.2) g/dL Albumin (3.5-5.0) g/dL Triglycerides (30-150) mg/dL Cholesterol (50-200) mg/dL LDL Cholesterol (30-100) mg/dL HDL Cholesterol (40-60) mg/dL Heart Disease Risk Ratio 08/14/22 08/14/22 08/14/22 Range/Units 05:23 06:32 11:46 WBC (4.0-10.5) x10^3/uL RBC (4.1-5.6) x10^6/uL Hgb (12.5-18.0) g/dL Hct (42-50) % MCV (78-100) fL MCH (26-32) pg MCHC (32-36) g/dL RDW (11.5-14.0) % Plt Count (150-450) x10^3/uL MPV (7.5-11.0) fL Sodium 134 L (137-145) mmol/L Potassium 5.4 H D (3.5-5.1) mmol/L Chloride 103 (98-107) mmol/L Carbon Dioxide 28 (22-30) mmol/L Anion Gap 8.4 (5-15) MEQ/L BUN 17 (9-20) mg/dL Creatinine 1.12 (0.66-1.25) mg/dL Estimated GFR > 60.0 ML/MIN Glucose 300 H (74-106) mg/dL POC Glucometer 289 H 318 H (74 to 106) mg/dL Calcium 9.0 (8.4-10.2) mg/dL Magnesium 2.3 (1.6-2.3) mg/dL Total Bilirubin 0.50 (0.2-1.3) mg/dL AST 20 (17-59) U/L ALT 20 (0-50) U/L Alkaline Phosphatase 115 (38-126) U/L Troponin I (0.000-0.034) ng/mL Serum Total Protein 7.3 (6.3-8.2) g/dL Albumin 3.9 (3.5-5.0) g/dL Triglycerides 151 H (30-150) mg/dL Cholesterol 146 (50-200) mg/dL LDL Cholesterol 63 (30-100) mg/dL HDL Cholesterol 44 (40-60) mg/dL Heart Disease Risk Ratio 3.3 08/14/22 Range/Units 16:25 WBC (4.0-10.5) x10^3/uL RBC (4.1-5.6) x10^6/uL Hgb (12.5-18.0) g/dL Hct (42-50) % MCV (78-100) fL MCH (26-32) pg MCHC (32-36) g/dL RDW (11.5-14.0) % Plt Count (150-450) x10^3/uL MPV (7.5-11.0) fL Sodium (137-145) mmol/L Potassium (3.5-5.1) mmol/L Chloride (98-107) mmol/L Carbon Dioxide (22-30) mmol/L Anion Gap (5-15) MEQ/L BUN (9-20) mg/dL Creatinine (0.66-1.25) mg/dL Estimated GFR ML/MIN Glucose (74-106) mg/dL POC Glucometer 305 H (74 to 106) mg/dL Calcium (8.4-10.2) mg/dL Magnesium (1.6-2.3) mg/dL Total Bilirubin (0.2-1.3) mg/dL AST (17-59) U/L ALT (0-50) U/L Alkaline Phosphatase (38-126) U/L Troponin I (0.000-0.034) ng/mL Serum Total Protein (6.3-8.2) g/dL Albumin (3.5-5.0) g/dL Triglycerides (30-150) mg/dL Cholesterol (50-200) mg/dL LDL Cholesterol (30-100) mg/dL HDL Cholesterol (40-60) mg/dL Heart Disease Risk Ratio Accuchecks Date 08/14/22 Date 08/14/22 Date 08/14/22 - Radiology Impressions Radiology Exams & Impressions: Radiology Procedures Category Date Time Status CHEST 1 VIEW (PORTABLE) Stat Exams 08/13/22 15:36 Completed HEAD W/WO CONTRAST [CT] Routine Exams 08/14/22 14:35 Ordered - Other Procedures and Tests Respiratory Therapy 08/13/22 22:33 Oxygen Nasal Cannula 2 lpm 08/14/22 01:00 Respiratory Therapy Assessment DAILY 08/14/22 07:00 Incentive Spirometry TID 08/15/22 05:00 EKG DAILY 08/16/22 05:00 EKG DAILY 08/17/22 05:00 EKG DAILY Assessment/Plan (1) Chest pain Current Visit: Yes Status: Acute Qualifiers: Chest pain type: unspecified Qualified Code(s): R07.9 - Chest pain, unspecified Assessment & Plan: Troponins are neg x 3; LA ruled out. Code(s): R07.9 - CHEST PAIN, UNSPECIFIED (2) Leukocytosis Current Visit: Yes Status: Acute Qualifiers: Leukocytosis type: unspecified Qualified Code(s): D72.829 - Elevated white blood cell count, unspecified Code(s): D72.829 - ELEVATED WHITE BLOOD CELL COUNT, UNSPECIFIED (3) Right middle lobe pneumonia Current Visit: Yes Status: Acute Qualifiers: Pneumonia type: due to unspecified organism Qualified Code(s): J18.9 - Pneumonia, unspecified organism Assessment & Plan: treating for mycoplasma with zithromax. Code(s): J18.9 - PNEUMONIA, UNSPECIFIED ORGANISM (4) Hyperkalemia Current Visit: No Status: Acute Code(s): E87.5 - HYPERKALEMIA (5) Hyponatremia Current Visit: No Status: Acute Code(s): E87.1 - HYPO-OSMOLALITY AND HYPONATREMIA (6) Altered mental status Current Visit: No Status: Resolved Qualifiers: Altered mental status type: disorientation Qualified Code(s): R41.0 - Disorientation, unspecified Assessment & Plan: check CT head Code(s): R41.82 - ALTERED MENTAL STATUS, UNSPECIFIED
--- NOTE | 2022-08-14 20:27 | XRAY ---
Indication: Lightheaded, headache, dizziness, acute mental status change, short of breath, and chest pain. Multiple contiguous axial images obtained through the head prior to and following 80 cc Isovue 370 contrast. Comparison: June 23, 2022 Stable age-appropriate global atrophy and minimal periventricular degenerative micro-ischemia. No acute intracranial hemorrhage, abnormal extra-axial fluid collection, or mass effect. Postcontrast images are negative for abnormal enhancing intra or extra-axial mass. Fourth ventricle is midline without hydrocephalus. Bony calvarium intact. Visualized paranasal sinuses and mastoid air cells remain clear. Impression: Continued nonacute senile brain. Negative contrast exam. Comment: Preliminary interpretation made by [facility]. No critical discrepancy.
[2022-08-14] MEDS: AMITRIPTYLINE 25 MG TABLET PO SCH (20:37)
[2022-08-14] MEDS: Avodart 0.5 MG PO SCH (20:37)
[2022-08-14] MEDS: ZOCOR 20MG PO SCH (20:38)
[2022-08-14] MEDS: ceLEXa 20 MG PO SCH (20:38)
[2022-08-14 21:01] LABS: Appearance Cloudy (Clear); Bacteria None Seen /HPF (None Seen); Bilirubin Negative (Negative); Blood Negative (Negative); Epithelial Cells None Seen /HPF (None Seen); Glucose, Urine >=1000 mg/dL (Negative); Hyaline Casts NONE SEEN /LPF (0-2); Ketones Trace (Negative); Leukocyte Esterase Negative (Negative); Nitrite Negative (Negative); Protein,Urine Dip Negative (Negative); RBC 0-2 /HPF (0-5); Specific Gravity >=1.030 (1.005-1.030); Urobilinogen 0.2 mg/dL (0.2); WBC 0-2 /HPF (0-5)
[2022-08-14 21:29] LABS: ADD URINE CULTURE? NO (NO)
[2022-08-14] MEDS ORDERED: NON-FORMULARY ITEM (Simvastatin [Simvastatin] 40 MG Tablet) PO SCH (22:00)
[2022-08-15] MEDS: solu-MEDROL 60 MG, Sterile H2O 10 ml 2 ML IV SCH ×8 (00:50→17:02)
[2022-08-15 05:59] LABS: Hematocrit 37.9 % (42-50); Hemoglobin 11.7 g/dL (12.5-18.0); Mean Cell Volume 86.3 fL (78-100); Mean Corpuscular Hemoglobin 26.7 pg (26-32); Mean Corpuscular Hgb Concent. 30.9 g/dL (32-36); Mean Platelet Volume 11.1 fL (7.5-11.0); Platelet Count 269 x10^3/uL (150-450); Red Blood Count 4.39 x10^6/uL (4.1-5.6); Red Cell Distribution Width 14.9 % (11.5-14.0)
[2022-08-15 06:13] LABS: ALBUMIN 3.9 g/dL (3.5-5.0); ALKALINE PHOSPHATASE 111 U/L (38-126); ANION GAP 12.1 MEQ/L (5-15); BLOOD UREA NITROGEN 22 mg/dL (9-20); CHLORIDE 103 mmol/L (98-107); Calcium 9.1 mg/dL (8.4-10.2); Carbon Dioxide 26 mmol/L (22-30); Creatinine 1 1.07 mg/dL (0.66-1.25); EST GLOMERULAR FILTRATION RATE > 60.0 ML/MIN; Glucose 331 mg/dL (74-106); Potassium 4.7 mmol/L (3.5-5.1); SGOT/AST 20 U/L (17-59); SGPT/ALT 19 U/L (0-50); SODIUM 136 mmol/L (137-145); Total Protein 7.4 g/dL (6.3-8.2); White Blood Count 26.9 x10^3/uL (4.0-10.5)
[2022-08-15] MEDS: PATIENT OWN MEDICATION IH SCH ×2 (07:30→19:12)
[2022-08-15] MEDS: HUMULIN R SQ PRN ×4 (07:34→21:18)
[2022-08-15] MEDS: Levofloxacin 500MG/100ML D5W 500 MG/100 ML BAG IV SCH ×2 (07:35→09:11)
[2022-08-15 07:41] LABS: Lymphocytes 5 % (24-44); Monocyte 4 % (0.0-12.0); Neutrophils 91 % (36.-66.); Total Cells Counted 100
[2022-08-15 07:42] LABS: Platelet Estimate NORMAL (NORMAL)
--- NOTE | 2022-08-15 08:39 | XRAY ---
Indication: Follow-up pneumonia. Comparison: August 13, 2022 Portable chest unchanged again demonstrating minimal diffuse right lung interstitial alveolar opacities. Remaining heart and left lung unremarkable. No new cardiopulmonary abnormalities. Comment: Preliminary interpretation made by [facility]. No critical discrepancy.
[2022-08-15] MEDS: NEURONTIN PO SCH ×2 (09:09→21:21)
[2022-08-15] MEDS: ENOXAPARIN SODIUM SQ SCH (09:09)
[2022-08-15] MEDS: Pepcid 20 MG VIAL IV SCH ×2 (09:10→21:19)
[2022-08-15] MEDS: Flomax 0.4 MG PO SCH (09:10)
[2022-08-15] MEDS: Hydromorphone 1 mg/ml Injection IV PRN ×3 (09:10→20:15)
[2022-08-15] MEDS: Ecotrin 325 MG PO SCH (09:10)
[2022-08-15] MEDS: COREG 12.5 MG PO SCH ×2 (09:10→21:20)
[2022-08-15] MEDS: Lotensin PO SCH (09:11)
--- NOTE | 2022-08-15 10:42 | PCM.NOTE ---
Date and Time: 08/15/22 [facility] Subjective Assessment: With CPAP on, he slept well half the night. Woke up, pulled his IV out, pulled off the monitor, and has been grouchy since. Just "tired" and having back pain as usual. WBC up to 26.9 today from 17.1 yesterday. - Review of Systems Constitutional: No Fever Respiratory: Cough Objective Exam General Appearance: no apparent distress, alert, obese Neurologic Exam: oriented x 3, cooperative Skin Exam: normal color, warm, dry, No rash Eye Exam: eyes nml inspection Ears, Nose, Throat Exam: moist mucous membranes Neck Exam: normal inspection Respiratory Exam: diminished breath sounds (good air exchange), No crackles/rales, No rhonchi, No wheezing Cardiovascular Exam: regular rate/rhythm, normal heart sounds, No murmur Gastrointestinal/Abdomen Exam: soft, normal bowel sounds, No tenderness, No distention, No mass, No guarding, No rebound OBJECTIVE DATA Vital Signs: Vital Signs - 24 hr Temp Pulse Resp BP Pulse Ox 08/15/22 08:00 97.6 F 76 18 129/56 92 L 08/15/22 04:00 97.9 F 80 18 133/73 91 L 08/14/22 23:44 97.9 F 81 18 141/74 92 L 08/14/22 21:52 87 20 92 L 08/14/22 20:00 97.4 F 92 H 20 142/76 95 08/14/22 16:00 97.5 F 87 19 137/79 94 L 08/14/22 12:00 97.0 F 80 19 124/70 93 L Pain Assessment - Last Documented Pain Intensity 4 Pain Scale Used 0-10 Pain Scale Intake and Output: Intake & Output 08/12/22 08/13/22 08/14/22 08/15/22 11:59 11:59 11:59 11:59 Intake Total 1610 2481 Output Total 1175 Balance 435 2481 Weight 111.2 kg Lab Results: Lab Results-Last 24 Hours 08/14/22 08/14/22 08/14/22 Range/Units 11:46 16:25 20:51 WBC (4.0-10.5) x10^3/uL RBC (4.1-5.6) x10^6/uL Hgb (12.5-18.0) g/dL Hct (42-50) % MCV (78-100) fL MCH (26-32) pg MCHC (32-36) g/dL RDW (11.5-14.0) % Plt Count (150-450) x10^3/uL MPV (7.5-11.0) fL Segmented Neutrophils (36.-66.) % Lymphocytes (Manual) (24-44) % Monocytes (Manual) (0.0-12.0) % Platelet Estimate (NORMAL) RBC Morphology Sodium (137-145) mmol/L Potassium (3.5-5.1) mmol/L Chloride (98-107) mmol/L Carbon Dioxide (22-30) mmol/L Anion Gap (5-15) MEQ/L BUN (9-20) mg/dL Creatinine (0.66-1.25) mg/dL Estimated GFR ML/MIN Glucose (74-106) mg/dL POC Glucometer 318 H 305 H (74 to 106) mg/dL Calcium (8.4-10.2) mg/dL Total Bilirubin (0.2-1.3) mg/dL AST (17-59) U/L ALT (0-50) U/L Alkaline Phosphatase (38-126) U/L Serum Total Protein (6.3-8.2) g/dL Albumin (3.5-5.0) g/dL Procalcitonin (0.030-0.080) ng/mL Urine Color Yellow (Yellow) Urine Appearance Cloudy A (Clear) Urine pH 5.0 (4.6-8.0) Ur Specific Vernon >=1.030 A (1.005-1.030) Urine Protein Negative (Negative) Urine Glucose (UA) >=1000 A (Negative) mg/dL Urine Ketones Trace A (Negative) Urine Blood Negative (Negative) Urine Nitrite Negative (Negative) Urine Bilirubin Negative (Negative) Urine Urobilinogen 0.2 (0.2) mg/dL Ur Leukocyte Esterase Negative (Negative) U Hyaline Cast (Auto) NONE SEEN (0-2) /LPF Urine Microscopic RBC 0-2 (0-5) /HPF Urine Microscopic WBC 0-2 (0-5) /HPF Ur Epithelial Cells None Seen (None Seen) /HPF Urine Bacteria None Seen (None Seen) /HPF Urine Culture Reflexed NO (NO) 08/14/22 08/15/22 08/15/22 Range/Units 21:01 05:36 05:36 WBC 26.9 H* (4.0-10.5) x10^3/uL RBC 4.39 (4.1-5.6) x10^6/uL Hgb 11.7 L (12.5-18.0) g/dL Hct 37.9 L (42-50) % MCV 86.3 (78-100) fL MCH 26.7 (26-32) pg MCHC 30.9 L (32-36) g/dL RDW 14.9 H (11.5-14.0) % Plt Count 269 (150-450) x10^3/uL MPV 11.1 H (7.5-11.0) fL Segmented Neutrophils 91 H (36.-66.) % Lymphocytes (Manual) 5 L (24-44) % Monocytes (Manual) 4 (0.0-12.0) % Platelet Estimate NORMAL (NORMAL) RBC Morphology NORMAL Sodium 136 L (137-145) mmol/L Potassium 4.7 (3.5-5.1) mmol/L Chloride 103 (98-107) mmol/L Carbon Dioxide 26 (22-30) mmol/L Anion Gap 12.1 (5-15) MEQ/L BUN 22 H (9-20) mg/dL Creatinine 1.07 (0.66-1.25) mg/dL Estimated GFR > 60.0 ML/MIN Glucose 331 H (74-106) mg/dL POC Glucometer 270 H (74 to 106) mg/dL Calcium 9.1 (8.4-10.2) mg/dL Total Bilirubin 0.30 (0.2-1.3) mg/dL AST 20 (17-59) U/L ALT 19 (0-50) U/L Alkaline Phosphatase 111 (38-126) U/L Serum Total Protein 7.4 (6.3-8.2) g/dL Albumin 3.9 (3.5-5.0) g/dL Procalcitonin (0.030-0.080) ng/mL Urine Color (Yellow) Urine Appearance (Clear) Urine pH (4.6-8.0) Ur Specific Vernon (1.005-1.030) Urine Protein (Negative) Urine Glucose (UA) (Negative) mg/dL Urine Ketones (Negative) Urine Blood (Negative) Urine Nitrite (Negative) Urine Bilirubin (Negative) Urine Urobilinogen (0.2) mg/dL Ur Leukocyte Esterase (Negative) U Hyaline Cast (Auto) (0-2) /LPF Urine Microscopic RBC (0-5) /HPF Urine Microscopic WBC (0-5) /HPF Ur Epithelial Cells (None Seen) /HPF Urine Bacteria (None Seen) /HPF Urine Culture Reflexed (NO) 08/15/22 Range/Units 05:36 WBC (4.0-10.5) x10^3/uL RBC (4.1-5.6) x10^6/uL Hgb (12.5-18.0) g/dL Hct (42-50) % MCV (78-100) fL MCH (26-32) pg MCHC (32-36) g/dL RDW (11.5-14.0) % Plt Count (150-450) x10^3/uL MPV (7.5-11.0) fL Segmented Neutrophils (36.-66.) % Lymphocytes (Manual) (24-44) % Monocytes (Manual) (0.0-12.0) % Platelet Estimate (NORMAL) RBC Morphology Sodium (137-145) mmol/L Potassium (3.5-5.1) mmol/L Chloride (98-107) mmol/L Carbon Dioxide (22-30) mmol/L Anion Gap (5-15) MEQ/L BUN (9-20) mg/dL Creatinine (0.66-1.25) mg/dL Estimated GFR ML/MIN Glucose (74-106) mg/dL POC Glucometer (74 to 106) mg/dL Calcium (8.4-10.2) mg/dL Total Bilirubin (0.2-1.3) mg/dL AST (17-59) U/L ALT (0-50) U/L Alkaline Phosphatase (38-126) U/L Serum Total Protein (6.3-8.2) g/dL Albumin (3.5-5.0) g/dL Procalcitonin 0.132 H (0.030-0.080) ng/mL Urine Color (Yellow) Urine Appearance (Clear) Urine pH (4.6-8.0) Ur Specific Vernon (1.005-1.030) Urine Protein (Negative) Urine Glucose (UA) (Negative) mg/dL Urine Ketones (Negative) Urine Blood (Negative) Urine Nitrite (Negative) Urine Bilirubin (Negative) Urine Urobilinogen (0.2) mg/dL Ur Leukocyte Esterase (Negative) U Hyaline Cast (Auto) (0-2) /LPF Urine Microscopic RBC (0-5) /HPF Urine Microscopic WBC (0-5) /HPF Ur Epithelial Cells (None Seen) /HPF Urine Bacteria (None Seen) /HPF Urine Culture Reflexed (NO) Radiology Exams: Radiology Procedures Category Date Time Status CHEST 1 VIEW (PORTABLE) Stat Exams 08/13/22 15:36 Completed CHEST 2 VIEWS (PA AND LAT) Stat Exams 08/15/22 07:51 Completed HEAD W/WO CONTRAST [CT] Routine Exams 08/14/22 14:35 Completed Assessment/Plan (1) Right middle lobe pneumonia Current Visit: Yes Status: Acute Qualifiers: Pneumonia type: due to unspecified organism Qualified Code(s): J18.9 - Pneumonia, unspecified organism Assessment & Plan: was on zithromax day #2, but changed to levaquin (day #1). Code(s): J18.9 - PNEUMONIA, UNSPECIFIED ORGANISM (2) Leukocytosis Current Visit: Yes Status: Acute Qualifiers: Leukocytosis type: unspecified Qualified Code(s): D72.829 - Elevated white blood cell count, unspecified Assessment & Plan: increased; recheck in a.m. I don't think the steroids account for the increase in WBC. Code(s): D72.829 - ELEVATED WHITE BLOOD CELL COUNT, UNSPECIFIED (3) Hyperkalemia Current Visit: No Status: Resolved Code(s): E87.5 - HYPERKALEMIA (4) Hyponatremia Current Visit: No Status: Acute Assessment & Plan: much improved, 136 today, was 132 on admission. Code(s): E87.1 - HYPO-OSMOLALITY AND HYPONATREMIA (5) Altered mental status Current Visit: No Status: Resolved Qualifiers: Altered mental status type: disorientation Qualified Code(s): R41.0 - Disorientation, unspecified Assessment & Plan: appears to have had some disorientation last night as well. Likely delerium due to acute illness. Code(s): R41.82 - ALTERED MENTAL STATUS, UNSPECIFIED (6) Chest pain Current Visit: Yes Status: Resolved Qualifiers: Chest pain type: unspecified Qualified Code(s): R07.9 - Chest pain, unspecified Code(s): R07.9 - CHEST PAIN, UNSPECIFIED
[2022-08-15] MEDS ORDERED: solu-MEDROL ONE (16:07)
[2022-08-15] MEDS: AMITRIPTYLINE 25 MG TABLET PO SCH (21:19)
[2022-08-15] MEDS: Avodart 0.5 MG PO SCH (21:19)
[2022-08-15] MEDS: ceLEXa 20 MG PO SCH (21:20)
[2022-08-15] MEDS: ZOCOR 20MG PO SCH (21:21)
[2022-08-15] MEDS: Ativan 1 MG PO PRN (22:19)
[2022-08-16] MEDS: solu-MEDROL 60 MG, Sterile H2O 10 ml 2 ML IV SCH ×8 (00:22→18:25)
[2022-08-16] MEDS: Hydromorphone 1 mg/ml Injection IV PRN ×3 (05:00→16:05)
[2022-08-16 05:14] LABS: Hematocrit 33.9 % (42-50); Hemoglobin 10.9 g/dL (12.5-18.0); Mean Cell Volume 85.2 fL (78-100); Mean Corpuscular Hemoglobin 27.4 pg (26-32); Mean Corpuscular Hgb Concent. 32.2 g/dL (32-36); Mean Platelet Volume 11.3 fL (7.5-11.0); Platelet Count 314 x10^3/uL (150-450); Red Blood Count 3.98 x10^6/uL (4.1-5.6); Red Cell Distribution Width 15.1 % (11.5-14.0)
[2022-08-16 05:26] LABS: White Blood Count 27.7 x10^3/uL (4.0-10.5)
[2022-08-16 05:28] LABS: ALBUMIN 3.5 g/dL (3.5-5.0); ALKALINE PHOSPHATASE 93 U/L (38-126); ANION GAP 11.4 MEQ/L (5-15); BLOOD UREA NITROGEN 22 mg/dL (9-20); CHLORIDE 102 mmol/L (98-107); Calcium 8.7 mg/dL (8.4-10.2); Carbon Dioxide 26 mmol/L (22-30); EST GLOMERULAR FILTRATION RATE > 60.0 ML/MIN; Glucose 310 mg/dL (74-106); Potassium 4.4 mmol/L (3.5-5.1); SGOT/AST 17 U/L (17-59); SGPT/ALT 16 U/L (0-50); SODIUM 135 mmol/L (137-145); Total Protein 6.6 g/dL (6.3-8.2)
[2022-08-16 06:41] LABS: BAND 6 % (0.0-2.0); Lymphocytes 3 % (24-44); Monocyte 1 % (0.0-12.0); Neutrophils 90 % (36.-66.); Platelet Estimate NORMAL (NORMAL); Total Cells Counted 100
[2022-08-16 06:43] LABS: Dohle Bodies 1+
[2022-08-16] MEDS: PATIENT OWN MEDICATION IH SCH ×2 (07:41→19:15)
[2022-08-16] MEDS: HUMULIN R SQ PRN ×4 (08:15→21:16)
[2022-08-16] MEDS: Lantus Insulin SQ SCH (08:15)
[2022-08-16] MEDS: Flomax 0.4 MG PO SCH (10:31)
[2022-08-16] MEDS: Pepcid 20 MG VIAL IV SCH ×2 (10:31→21:21)
[2022-08-16] MEDS: Lotensin PO SCH (10:31)
[2022-08-16] MEDS: Ecotrin 325 MG PO SCH (10:31)
[2022-08-16] MEDS: ENOXAPARIN SODIUM SQ SCH (10:32)
[2022-08-16] MEDS: COREG 12.5 MG PO SCH ×2 (10:32→21:21)
[2022-08-16] MEDS: NEURONTIN PO SCH ×2 (10:32→21:20)
[2022-08-16] MEDS: TYLENOL 325 MG PO PRN ×2 (10:46→18:25)
[2022-08-16] MEDS: Levofloxacin 500MG/100ML D5W 500 MG/100 ML BAG IV SCH (10:46)
--- NOTE | 2022-08-16 12:46 | XRAY ---
Indication: Acute mental status change. Syncope. Multiple falls. Sagittal, coronal, and axial MRI brain performed using pre-and post T1, T2, FLAIR, diffusion, and ADC sequences. 20 cc Dotarem contrast used. Comparison: None Age appropriate global atrophy and mild periventricular degenerative micro-ischemia signal bilaterally. No acute intracranial hemorrhage, abnormal extra-axial fluid collection, or mass effect. Diffusion images are negative for restricted signal. Following gadolinium, there is no abnormal enhancing intra or extra-axial mass. Fourth ventricle is midline without hydrocephalus. 7/8 cranial nerve complex bilaterally symmetric. Normal flow void signal within the major intracerebral circulation. Normal appearing craniocervical junction and sella turcica. Paranasal sinuses are clear. Impression: 1. Atrophy and degenerative micro-ischemia within normal limits for patient's age. 2. No acute intracranial abnormalities or evidence for evolving large vessel territorial stroke. 3. Negative contrast exam.
--- NOTE | 2022-08-16 13:36 | PCM.NOTE ---
Date and Time: 08/16/22 1333 Subjective Assessment: Afebrile last night. Feeling much better than yesterday. WBC 27.7 this morning. Blood sugars 270-310. - Review of Systems Constitutional: No Fever Respiratory: Short Of Breath Objective Exam General Appearance: no apparent distress, obese Neurologic Exam: alert, oriented x 3, cooperative Skin Exam: normal color, warm, dry, No rash Eye Exam: eyes nml inspection Ears, Nose, Throat Exam: moist mucous membranes Neck Exam: normal inspection Respiratory Exam: diminished breath sounds, No crackles/rales, No rhonchi, No wheezing Cardiovascular Exam: regular rate/rhythm, normal heart sounds, No murmur Gastrointestinal/Abdomen Exam: soft, normal bowel sounds, No tenderness, No distention, No mass, No guarding, No rebound Extremity Exam: No pedal edema, No swelling Back Exam: normal inspection, No rash OBJECTIVE DATA Vital Signs: Vital Signs - 24 hr Temp Pulse Resp BP Pulse Ox 08/16/22 11:26 97.8 F 80 17 152/75 97 08/16/22 07:43 77 18 96 08/16/22 07:10 97.5 F 79 18 128/57 93 L 08/16/22 03:39 97.9 F 70 16 148/59 94 L 08/16/22 00:00 98.2 F 88 19 127/59 95 08/15/22 19:33 97.5 F 85 19 143/72 93 L 08/15/22 19:12 84 18 94 L 08/15/22 16:16 80 18 94 L 08/15/22 16:00 97.0 F 81 17 137/75 93 L Pain Assessment - Last Documented Pain Intensity 7 Pain Scale Used 0-10 Pain Scale Intake and Output: Intake & Output 08/14/22 08/15/22 08/16/22 08/17/22 11:59 11:59 11:59 11:59 Intake Total 1610 2481 3171 Output Total 1175 700 Balance 435 2481 2471 Weight 111.2 kg 111.4 kg Lab Results: Lab Results-Last 24 Hours 08/15/22 08/15/22 08/16/22 Range/Units 16:22 20:25 04:09 WBC 27.7 H* (4.0-10.5) x10^3/uL RBC 3.98 L (4.1-5.6) x10^6/uL Hgb 10.9 L (12.5-18.0) g/dL Hct 33.9 L (42-50) % MCV 85.2 (78-100) fL MCH 27.4 (26-32) pg MCHC 32.2 (32-36) g/dL RDW 15.1 H (11.5-14.0) % Plt Count 314 (150-450) x10^3/uL MPV 11.3 H (7.5-11.0) fL Segmented Neutrophils 90 H (36.-66.) % Band Neutrophils 6 H (0.0-2.0) % Lymphocytes (Manual) 3 L (24-44) % Monocytes (Manual) 1 (0.0-12.0) % Dohle Bodies 1+ Platelet Estimate NORMAL (NORMAL) RBC Morphology NORMAL Sodium (137-145) mmol/L Potassium (3.5-5.1) mmol/L Chloride (98-107) mmol/L Carbon Dioxide (22-30) mmol/L Anion Gap (5-15) MEQ/L BUN (9-20) mg/dL Creatinine (0.66-1.25) mg/dL Estimated GFR ML/MIN Glucose (74-106) mg/dL POC Glucometer 295 H 285 H (74 to 106) mg/dL Calcium (8.4-10.2) mg/dL Total Bilirubin (0.2-1.3) mg/dL AST (17-59) U/L ALT (0-50) U/L Alkaline Phosphatase (38-126) U/L Serum Total Protein (6.3-8.2) g/dL Albumin (3.5-5.0) g/dL 08/16/22 08/16/22 08/16/22 Range/Units 04:09 06:49 11:20 WBC (4.0-10.5) x10^3/uL RBC (4.1-5.6) x10^6/uL Hgb (12.5-18.0) g/dL Hct (42-50) % MCV (78-100) fL MCH (26-32) pg MCHC (32-36) g/dL RDW (11.5-14.0) % Plt Count (150-450) x10^3/uL MPV (7.5-11.0) fL Segmented Neutrophils (36.-66.) % Band Neutrophils (0.0-2.0) % Lymphocytes (Manual) (24-44) % Monocytes (Manual) (0.0-12.0) % Dohle Bodies Platelet Estimate (NORMAL) RBC Morphology Sodium 135 L (137-145) mmol/L Potassium 4.4 (3.5-5.1) mmol/L Chloride 102 (98-107) mmol/L Carbon Dioxide 26 (22-30) mmol/L Anion Gap 11.4 (5-15) MEQ/L BUN 22 H (9-20) mg/dL Creatinine 1.20 (0.66-1.25) mg/dL Estimated GFR > 60.0 ML/MIN Glucose 310 H (74-106) mg/dL POC Glucometer 310 H 325 H (74 to 106) mg/dL Calcium 8.7 (8.4-10.2) mg/dL Total Bilirubin 0.20 (0.2-1.3) mg/dL AST 17 (17-59) U/L ALT 16 (0-50) U/L Alkaline Phosphatase 93 (38-126) U/L Serum Total Protein 6.6 (6.3-8.2) g/dL Albumin 3.5 (3.5-5.0) g/dL Radiology Exams: Radiology Procedures Category Date Time Status CHEST 2 VIEWS (PA AND LAT) Stat Exams 08/15/22 07:51 Completed HEAD W/WO CONTRAST [CT] Routine Exams 08/14/22 14:35 Completed MRI BRAIN W & W/O CONTRAST [MRI] Routine Exams 08/16/22 09:00 Completed Assessment/Plan (1) Right middle lobe pneumonia Current Visit: Yes Status: Acute Qualifiers: Pneumonia type: due to unspecified organism Qualified Code(s): J18.9 - Pneumonia, unspecified organism Assessment & Plan: On day # 2 levaquin. I spoke with pharmacy. Will go ahead and leave on levaquin since he is clinically better (and WBC about the same as yesterday) - recheck procalcitonin in the morning. Can always change to wider coverage, likely meropenem, if needed. Code(s): J18.9 - PNEUMONIA, UNSPECIFIED ORGANISM (2) Leukocytosis Current Visit: Yes Status: Acute Qualifiers: Leukocytosis type: unspecified Qualified Code(s): D72.829 - Elevated white blood cell count, unspecified Code(s): D72.829 - ELEVATED WHITE BLOOD CELL COUNT, UNSPECIFIED (3) Hyperkalemia Current Visit: No Status: Resolved Code(s): E87.5 - HYPERKALEMIA (4) Hyponatremia Current Visit: No Status: Acute Code(s): E87.1 - HYPO-OSMOLALITY AND HYPONATREMIA (5) Altered mental status Current Visit: No Status: Resolved Qualifiers: Altered mental status type: disorientation Qualified Code(s): R41.0 - Disorientation, unspecified Assessment & Plan: currently fine. However has had intermittent issues, so will check carotid dopplers and MRI brain. Code(s): R41.82 - ALTERED MENTAL STATUS, UNSPECIFIED
[2022-08-16] MEDS: OXYCODONE-ACETAMINOPHEN 10-325 PO PRN (21:16)
[2022-08-16] MEDS: Ativan 1 MG PO PRN (21:16)
[2022-08-16] MEDS: ceLEXa 20 MG PO SCH (21:20)
[2022-08-16] MEDS: AMITRIPTYLINE 25 MG TABLET PO SCH (21:20)
[2022-08-16] MEDS: NORVASC 5 MG PO SCH (21:20)
[2022-08-16] MEDS: ZOCOR 20MG PO SCH (21:20)
[2022-08-16] MEDS: Avodart 0.5 MG PO SCH (21:20)
[2022-08-17] MEDS: solu-MEDROL 60 MG, Sterile H2O 10 ml 2 ML IV SCH ×8 (00:04→17:08)
[2022-08-17 05:33] LABS: Absolute Neutrophil Ct (ANC) 18.46 x10^3/uL (1.4-6.9); BASOPHIL % 0.2 % (0.0-0.4); Basophil (Absolute #) 0.04 x10^3/uL (0-0.4); Eosinophil (Absolute #) 0 x10^3/uL (0-0.5); Hemoglobin 11.4 g/dL (12.5-18.0); IMMATURE GRAN # 0.34 x10^3u/L (0.00-0.03); IMMATURE GRAN % 1.7 % (0.00-0.4); Lymphocytes % 4.5 % (24.0-44.0); Mean Cell Volume 85.1 fL (78-100); Mean Corpuscular Hgb Concent. 31.7 g/dL (32-36); Mean Platelet Volume 10.9 fL (7.5-11.0); Monocyte (Absolute #) 0.48 x10^3/uL (0.0-1.3); Monocytes % 2.4 % (0.0-12.0); Neutrophil % 91.2 % (36.0-66.0); Platelet Count 314 x10^3/uL (150-450); Red Blood Count 4.23 x10^6/uL (4.1-5.6); Red Cell Distribution Width 15.3 % (11.5-14.0); White Blood Count 20.2 x10^3/uL (4.0-10.5)
[2022-08-17 06:13] LABS: ALBUMIN 3.3 g/dL (3.5-5.0); ALKALINE PHOSPHATASE 85 U/L (38-126); BLOOD UREA NITROGEN 25 mg/dL (9-20); CHLORIDE 104 mmol/L (98-107); Calcium 8.7 mg/dL (8.4-10.2); Carbon Dioxide 30 mmol/L (22-30); Creatinine 1 1.12 mg/dL (0.66-1.25); EST GLOMERULAR FILTRATION RATE > 60.0 ML/MIN; Glucose 265 mg/dL (74-106); Potassium 5.1 mmol/L (3.5-5.1); SGOT/AST 22 U/L (17-59); SGPT/ALT 17 U/L (0-50); SODIUM 137 mmol/L (137-145); Total Protein 5.9 g/dL (6.3-8.2)
[2022-08-17] MEDS: PATIENT OWN MEDICATION IH SCH ×2 (07:29→17:50)
[2022-08-17] MEDS: HUMULIN R SQ PRN ×4 (08:10→21:16)
[2022-08-17] MEDS: Lantus Insulin SQ SCH (08:10)
[2022-08-17] MEDS: ENOXAPARIN SODIUM SQ SCH (09:17)
[2022-08-17] MEDS: OXYCODONE-ACETAMINOPHEN 10-325 PO PRN ×3 (09:17→21:20)
[2022-08-17] MEDS: COREG 12.5 MG PO SCH ×2 (09:17→21:22)
[2022-08-17] MEDS: Flomax 0.4 MG PO SCH (09:17)
[2022-08-17] MEDS: Ecotrin 325 MG PO SCH (09:17)
[2022-08-17] MEDS: Levofloxacin 500MG/100ML D5W 500 MG/100 ML BAG IV SCH (09:17)
[2022-08-17] MEDS: Lotensin PO SCH ×2 (09:17→09:23)
[2022-08-17] MEDS: NEURONTIN PO SCH ×2 (09:17→21:21)
[2022-08-17] MEDS: Pepcid 20 MG VIAL IV SCH ×2 (09:17→21:22)
[2022-08-17] MEDS ORDERED: solu-MEDROL ONE (11:20)
--- NOTE | 2022-08-17 13:04 | PCM.NOTE ---
Date and Time: 08/17/22 1255 Subjective Assessment: Pt feeling better today. Spent part of the day yesterday on room air! - Review of Systems Constitutional: No Fever Respiratory: Cough Objective Exam General Appearance: no apparent distress, alert Neurologic Exam: oriented x 3, cooperative Skin Exam: normal color, warm, dry, No rash Eye Exam: eyes nml inspection Ears, Nose, Throat Exam: moist mucous membranes Neck Exam: normal inspection Respiratory Exam: lungs clear, diminished breath sounds (good air exchange), No crackles/rales, No rhonchi, No wheezing Cardiovascular Exam: regular rate/rhythm, normal heart sounds, No murmur Gastrointestinal/Abdomen Exam: soft, normal bowel sounds, No tenderness, No distention, No mass, No guarding, No rebound Extremity Exam: normal inspection, No pedal edema, No swelling Back Exam: normal inspection, No rash OBJECTIVE DATA Vital Signs: Vital Signs - 24 hr Temp Pulse Resp BP BP Pulse Ox 08/17/22 11:37 98.4 F 82 20 128/65 92 L 08/17/22 09:44 73 16 95 08/17/22 07:54 98.1 F 78 20 139/63 97 08/17/22 04:00 97.9 F 66 16 105/52 93 L 08/17/22 00:00 97.6 F 73 16 97/51 93 L 08/16/22 19:38 98.6 F 80 17 128/60 92 L 08/16/22 19:15 80 18 93 L 08/16/22 16:00 98.2 F 66 16 187/81 93 L Oxygen-Last 24 hours Oxygen Flowrate (L/min)-RT 2 Pain Assessment - Last Documented Pain Intensity 8 Pain Scale Used 0-10 Pain Scale Intake and Output: Intake & Output 08/15/22 08/16/22 08/17/22 08/18/22 11:59 11:59 11:59 11:59 Intake Total 2481 5841 4418 Output Total 700 Balance 2481 2471 4418 Weight 111.4 kg 111.4 kg 112 kg Lab Results: Lab Results-Last 24 Hours 08/16/22 08/16/22 08/17/22 Range/Units 16:07 21:05 04:20 WBC 20.2 H (4.0-10.5) x10^3/uL RBC 4.23 (4.1-5.6) x10^6/uL Hgb 11.4 L (12.5-18.0) g/dL Hct 36.0 L (42-50) % MCV 85.1 (78-100) fL MCH 27.0 (26-32) pg MCHC 31.7 L (32-36) g/dL RDW 15.3 H (11.5-14.0) % Plt Count 314 (150-450) x10^3/uL MPV 10.9 (7.5-11.0) fL Gran % 91.2 H (36.0-66.0) % Immature Gran % (Auto) 1.7 H (0.00-0.4) % Nucleat RBC Rel Count 0.0 (0.00-0.1) % Eos # (Auto) 0 (0-0.5) x10^3/uL Immature Gran # (Auto) 0.34 H (0.00-0.03) x10^3u/L Absolute Lymphs (auto) 0.90 L (1.0-4.6) x10^3/uL Absolute Monos (auto) 0.48 (0.0-1.3) x10^3/uL Absolute Nucleated RBC 0.00 (0.00-0.01) x10^3u/L Lymphocytes % 4.5 L (24.0-44.0) % Monocytes % 2.4 (0.0-12.0) % Eosinophils % 0.0 (0.00-5.0) % Basophils % 0.2 (0.0-0.4) % Absolute Granulocytes 18.46 H (1.4-6.9) x10^3/uL Basophils # 0.04 (0-0.4) x10^3/uL Sodium (137-145) mmol/L Potassium (3.5-5.1) mmol/L Chloride (98-107) mmol/L Carbon Dioxide (22-30) mmol/L Anion Gap (5-15) MEQ/L BUN (9-20) mg/dL Creatinine (0.66-1.25) mg/dL Estimated GFR ML/MIN Glucose (74-106) mg/dL POC Glucometer 368 H 253 H (74 to 106) mg/dL Calcium (8.4-10.2) mg/dL Total Bilirubin (0.2-1.3) mg/dL AST (17-59) U/L ALT (0-50) U/L Alkaline Phosphatase (38-126) U/L Serum Total Protein (6.3-8.2) g/dL Albumin (3.5-5.0) g/dL Procalcitonin (0.030-0.080) ng/mL 08/17/22 08/17/22 08/17/22 Range/Units 04:20 04:20 06:54 WBC (4.0-10.5) x10^3/uL RBC (4.1-5.6) x10^6/uL Hgb (12.5-18.0) g/dL Hct (42-50) % MCV (78-100) fL MCH (26-32) pg MCHC (32-36) g/dL RDW (11.5-14.0) % Plt Count (150-450) x10^3/uL MPV (7.5-11.0) fL Gran % (36.0-66.0) % Immature Gran % (Auto) (0.00-0.4) % Nucleat RBC Rel Count (0.00-0.1) % Eos # (Auto) (0-0.5) x10^3/uL Immature Gran # (Auto) (0.00-0.03) x10^3u/L Absolute Lymphs (auto) (1.0-4.6) x10^3/uL Absolute Monos (auto) (0.0-1.3) x10^3/uL Absolute Nucleated RBC (0.00-0.01) x10^3u/L Lymphocytes % (24.0-44.0) % Monocytes % (0.0-12.0) % Eosinophils % (0.00-5.0) % Basophils % (0.0-0.4) % Absolute Granulocytes (1.4-6.9) x10^3/uL Basophils # (0-0.4) x10^3/uL Sodium 137 (137-145) mmol/L Potassium 5.1 (3.5-5.1) mmol/L Chloride 104 (98-107) mmol/L Carbon Dioxide 30 (22-30) mmol/L Anion Gap 8.0 (5-15) MEQ/L BUN 25 H (9-20) mg/dL Creatinine 1.12 (0.66-1.25) mg/dL Estimated GFR > 60.0 ML/MIN Glucose 265 H (74-106) mg/dL POC Glucometer 269 H (74 to 106) mg/dL Calcium 8.7 (8.4-10.2) mg/dL Total Bilirubin 0.30 (0.2-1.3) mg/dL AST 22 (17-59) U/L ALT 17 (0-50) U/L Alkaline Phosphatase 85 (38-126) U/L Serum Total Protein 5.9 L (6.3-8.2) g/dL Albumin 3.3 L (3.5-5.0) g/dL Procalcitonin 0.084 H (0.030-0.080) ng/mL 08/17/22 Range/Units 11:05 WBC (4.0-10.5) x10^3/uL RBC (4.1-5.6) x10^6/uL Hgb (12.5-18.0) g/dL Hct (42-50) % MCV (78-100) fL MCH (26-32) pg MCHC (32-36) g/dL RDW (11.5-14.0) % Plt Count (150-450) x10^3/uL MPV (7.5-11.0) fL Gran % (36.0-66.0) % Immature Gran % (Auto) (0.00-0.4) % Nucleat RBC Rel Count (0.00-0.1) % Eos # (Auto) (0-0.5) x10^3/uL Immature Gran # (Auto) (0.00-0.03) x10^3u/L Absolute Lymphs (auto) (1.0-4.6) x10^3/uL Absolute Monos (auto) (0.0-1.3) x10^3/uL Absolute Nucleated RBC (0.00-0.01) x10^3u/L Lymphocytes % (24.0-44.0) % Monocytes % (0.0-12.0) % Eosinophils % (0.00-5.0) % Basophils % (0.0-0.4) % Absolute Granulocytes (1.4-6.9) x10^3/uL Basophils # (0-0.4) x10^3/uL Sodium (137-145) mmol/L Potassium (3.5-5.1) mmol/L Chloride (98-107) mmol/L Carbon Dioxide (22-30) mmol/L Anion Gap (5-15) MEQ/L BUN (9-20) mg/dL Creatinine (0.66-1.25) mg/dL Estimated GFR ML/MIN Glucose (74-106) mg/dL POC Glucometer 292 H (74 to 106) mg/dL Calcium (8.4-10.2) mg/dL Total Bilirubin (0.2-1.3) mg/dL AST (17-59) U/L ALT (0-50) U/L Alkaline Phosphatase (38-126) U/L Serum Total Protein (6.3-8.2) g/dL Albumin (3.5-5.0) g/dL Procalcitonin (0.030-0.080) ng/mL Radiology Exams: Radiology Procedures Category Date Time Status MRI BRAIN W & W/O CONTRAST [MRI] Routine Exams 08/16/22 09:00 Completed Assessment/Plan (1) Right middle lobe pneumonia Current Visit: Yes Status: Acute Qualifiers: Pneumonia type: due to unspecified organism Qualified Code(s): J18.9 - Pneumonia, unspecified organism Assessment & Plan: Levaquin day #3.He is improving clinically and WBC are decreasing also. Lungs sound great and his O2 requirement is starting to decrease. Code(s): J18.9 - PNEUMONIA, UNSPECIFIED ORGANISM (2) Leukocytosis Current Visit: Yes Status: Chronic Qualifiers: Leukocytosis type: unspecified Qualified Code(s): D72.829 - Elevated white blood cell count, unspecified Assessment & Plan: Chronic; he will see hematology outpatient. Code(s): D72.829 - ELEVATED WHITE BLOOD CELL COUNT, UNSPECIFIED (3) Altered mental status Current Visit: No Status: Chronic Qualifiers: Altered mental status type: disorientation Qualified Code(s): R41.0 - Disorientation, unspecified Assessment & Plan: Has been intermittent. MRI brain, carotid dopplers. Will need to f/u outpatient. Code(s): R41.82 - ALTERED MENTAL STATUS, UNSPECIFIED
--- NOTE | 2022-08-17 14:30 | XRAY ---
Indication: Acute mental status change. Two-dimensional sonogram and color Doppler imaging of the carotid arteries of the neck performed. Comparison: None Examination of the right carotid circulation demonstrates very minimal eccentric calcified plaquing in the proximal internal carotid artery. Remaining common carotid, carotid bulb, and external carotid arteries are widely patent. PSV of the CCA is 70 cm/s. PSV of the ICA is 78 cm/s. ICA/CCA ratio is 1.1. Normal antegrade vertebral artery flow. Examination of the left carotid circulation demonstrates minimal soft plaquing at the level of the bulb with tiny eccentric calcification at the origin of the external carotid artery. Remaining common carotid and internal carotid arteries are widely patent. PSV of the CCA is 87 cm/s. PSV of the ICA is 65 cm/s. ICA/CCA ratio is 0.7. Normal antegrade vertebral artery flow. Impression: Very minimal arteriosclerotic plaquing bilaterally as detailed. Velocity measurements and ratios are negative for hemodynamically significant flow limiting stenosis.
[2022-08-17] MEDS: NORVASC 5 MG PO SCH (21:21)
[2022-08-17] MEDS: Avodart 0.5 MG PO SCH (21:21)
[2022-08-17] MEDS: AMITRIPTYLINE 25 MG TABLET PO SCH (21:21)
[2022-08-17] MEDS: ZOCOR 20MG PO SCH (21:21)
[2022-08-17] MEDS: Ativan 1 MG PO PRN (21:21)
[2022-08-17] MEDS: ceLEXa 20 MG PO SCH (21:22)
[2022-08-18] MEDS: solu-MEDROL 60 MG, Sterile H2O 10 ml 2 ML IV SCH ×8 (00:30→17:02)
[2022-08-18 05:12] LABS: BASOPHIL % 0.2 % (0.0-0.4); Basophil (Absolute #) 0.04 x10^3/uL (0-0.4); Eosinophil (Absolute #) 0 x10^3/uL (0-0.5); Hematocrit 35.5 % (42-50); Hemoglobin 11.4 g/dL (12.5-18.0); IMMATURE GRAN # 0.37 x10^3u/L (0.00-0.03); Lymphocyte (Absolute #) 1.15 x10^3/uL (1.0-4.6); Lymphocytes % 6.2 % (24.0-44.0); Mean Cell Volume 84.3 fL (78-100); Mean Corpuscular Hemoglobin 27.1 pg (26-32); Mean Corpuscular Hgb Concent. 32.1 g/dL (32-36); Mean Platelet Volume 10.6 fL (7.5-11.0); Monocyte (Absolute #) 0.38 x10^3/uL (0.0-1.3); Neutrophil % 89.6 % (36.0-66.0); Platelet Count 276 x10^3/uL (150-450); Red Blood Count 4.21 x10^6/uL (4.1-5.6); Red Cell Distribution Width 15.1 % (11.5-14.0); White Blood Count 18.6 x10^3/uL (4.0-10.5)
[2022-08-18 06:18] LABS: ALBUMIN 3.4 g/dL (3.5-5.0); ALKALINE PHOSPHATASE 82 U/L (38-126); BLOOD UREA NITROGEN 24 mg/dL (9-20); CHLORIDE 101 mmol/L (98-107); Calcium 8.4 mg/dL (8.4-10.2); Carbon Dioxide 33 mmol/L (22-30); Creatinine 1 1.11 mg/dL (0.66-1.25); EST GLOMERULAR FILTRATION RATE > 60.0 ML/MIN; Glucose 283 mg/dL (74-106); SGOT/AST 24 U/L (17-59); SGPT/ALT 22 U/L (0-50); SODIUM 138 mmol/L (137-145); Total Protein 6.4 g/dL (6.3-8.2)
[2022-08-18 06:20] LABS: Potassium 4.7 mmol/L (3.5-5.1)
[2022-08-18 06:47] LABS: ANION GAP 8.7 MEQ/L (5-15)
[2022-08-18] MEDS: PATIENT OWN MEDICATION IH SCH ×2 (07:20→18:02)
[2022-08-18] MEDS: Lantus Insulin SQ SCH (07:31)
[2022-08-18] MEDS: HUMULIN R SQ PRN ×4 (07:32→21:41)
[2022-08-18] MEDS: OXYCODONE-ACETAMINOPHEN 10-325 PO PRN ×3 (07:33→21:36)
[2022-08-18] MEDS: NEURONTIN PO SCH ×2 (09:13→21:38)
[2022-08-18] MEDS: COREG 12.5 MG PO SCH ×2 (09:13→21:38)
[2022-08-18] MEDS: Ecotrin 325 MG PO SCH (09:13)
[2022-08-18] MEDS: Lotensin PO SCH (09:14)
[2022-08-18] MEDS: Flomax 0.4 MG PO SCH (09:15)
[2022-08-18] MEDS: Pepcid 20 MG VIAL IV SCH (09:16)
[2022-08-18] MEDS: ENOXAPARIN SODIUM SQ SCH (09:16)
[2022-08-18] MEDS: Levofloxacin 500MG/100ML D5W 500 MG/100 ML BAG IV SCH (09:20)
[2022-08-18] MEDS ORDERED: solu-MEDROL ONE ×2 (16:55→22:56)
--- NOTE | 2022-08-18 21:32 | PCM.NOTE ---
Date and Time: 08/18/222129 Subjective Assessment: Continues to feel better daily. Was off of O2 part of the day yesterday, this a.m.'s exam it is back on temporarily. Kal po. - Review of Systems Constitutional: No Fever Respiratory: Cough, Short Of Breath Objective Exam General Appearance: no apparent distress, alert Neurologic Exam: oriented x 3, cooperative Skin Exam: normal color, warm, dry, No rash Eye Exam: eyes nml inspection Ears, Nose, Throat Exam: moist mucous membranes Neck Exam: normal inspection Respiratory Exam: diminished breath sounds (good air exchange), No crackles/rales, No rhonchi, No wheezing Cardiovascular Exam: regular rate/rhythm, normal heart sounds, No murmur Gastrointestinal/Abdomen Exam: soft, normal bowel sounds, No tenderness Extremity Exam: normal inspection, No pedal edema, No swelling Back Exam: normal inspection, No rash OBJECTIVE DATA Vital Signs: Vital Signs - 24 hr Temp Pulse Resp BP Pulse Ox 08/18/22 20:00 97.9 F 90 19 161/85 94 L 08/18/22 18:02 72 18 94 L 08/18/22 16:00 97.3 F 76 18 157/70 91 L 08/18/22 10:57 97.1 F 77 17 157/74 94 L 08/18/22 07:48 97.1 F 81 18 144/85 90 L 08/18/22 07:21 61 16 93 L 08/18/22 04:43 98.5 F 68 18 138/76 95 08/18/22 04:00 97.8 F 71 16 145/72 95 08/18/22 00:00 97.8 F 71 16 95 Pain Assessment - Last Documented Pain Intensity 0 Pain Scale Used 0-10 Pain Scale Intake and Output: Intake & Output 08/16/22 08/17/22 08/18/22 08/19/22 11:59 11:59 11:59 11:59 Intake Total 3171 4418 1700 540 Output Total 700 Balance 2471 4418 1700 540 Weight 111.4 kg 112 kg 111.3 kg Lab Results: Lab Results-Last 24 Hours 08/18/22 08/18/22 08/18/22 Range/Units 05:12 05:12 07:09 WBC 18.6 H (4.0-10.5) x10^3/uL RBC 4.21 (4.1-5.6) x10^6/uL Hgb 11.4 L (12.5-18.0) g/dL Hct 35.5 L (42-50) % MCV 84.3 (78-100) fL MCH 27.1 (26-32) pg MCHC 32.1 (32-36) g/dL RDW 15.1 H (11.5-14.0) % Plt Count 276 (150-450) x10^3/uL MPV 10.6 (7.5-11.0) fL Gran % 89.6 H (36.0-66.0) % Immature Gran % (Auto) 2.0 H (0.00-0.4) % Nucleat RBC Rel Count 0.0 (0.00-0.1) % Eos # (Auto) 0 (0-0.5) x10^3/uL Immature Gran # (Auto) 0.37 H (0.00-0.03) x10^3u/L Absolute Lymphs (auto) 1.15 (1.0-4.6) x10^3/uL Absolute Monos (auto) 0.38 (0.0-1.3) x10^3/uL Absolute Nucleated RBC 0.00 (0.00-0.01) x10^3u/L Lymphocytes % 6.2 L (24.0-44.0) % Monocytes % 2.0 (0.0-12.0) % Eosinophils % 0.0 (0.00-5.0) % Basophils % 0.2 (0.0-0.4) % Absolute Granulocytes 16.70 H (1.4-6.9) x10^3/uL Basophils # 0.04 (0-0.4) x10^3/uL Sodium 138 (137-145) mmol/L Potassium 4.7 (3.5-5.1) mmol/L Chloride 101 (98-107) mmol/L Carbon Dioxide 33 H (22-30) mmol/L Anion Gap 8.7 (5-15) MEQ/L BUN 24 H (9-20) mg/dL Creatinine 1.11 (0.66-1.25) mg/dL Estimated GFR > 60.0 ML/MIN Glucose 283 H (74-106) mg/dL POC Glucometer 334 H (74 to 106) mg/dL Calcium 8.4 (8.4-10.2) mg/dL Total Bilirubin 0.20 (0.2-1.3) mg/dL AST 24 (17-59) U/L ALT 22 (0-50) U/L Alkaline Phosphatase 82 (38-126) U/L Serum Total Protein 6.4 (6.3-8.2) g/dL Albumin 3.4 L (3.5-5.0) g/dL 08/18/22 08/18/22 08/18/22 Range/Units 11:12 16:11 20:43 WBC (4.0-10.5) x10^3/uL RBC (4.1-5.6) x10^6/uL Hgb (12.5-18.0) g/dL Hct (42-50) % MCV (78-100) fL MCH (26-32) pg MCHC (32-36) g/dL RDW (11.5-14.0) % Plt Count (150-450) x10^3/uL MPV (7.5-11.0) fL Gran % (36.0-66.0) % Immature Gran % (Auto) (0.00-0.4) % Nucleat RBC Rel Count (0.00-0.1) % Eos # (Auto) (0-0.5) x10^3/uL Immature Gran # (Auto) (0.00-0.03) x10^3u/L Absolute Lymphs (auto) (1.0-4.6) x10^3/uL Absolute Monos (auto) (0.0-1.3) x10^3/uL Absolute Nucleated RBC (0.00-0.01) x10^3u/L Lymphocytes % (24.0-44.0) % Monocytes % (0.0-12.0) % Eosinophils % (0.00-5.0) % Basophils % (0.0-0.4) % Absolute Granulocytes (1.4-6.9) x10^3/uL Basophils # (0-0.4) x10^3/uL Sodium (137-145) mmol/L Potassium (3.5-5.1) mmol/L Chloride (98-107) mmol/L Carbon Dioxide (22-30) mmol/L Anion Gap (5-15) MEQ/L BUN (9-20) mg/dL Creatinine (0.66-1.25) mg/dL Estimated GFR ML/MIN Glucose (74-106) mg/dL POC Glucometer 293 H 341 H 406 H (74 to 106) mg/dL Calcium (8.4-10.2) mg/dL Total Bilirubin (0.2-1.3) mg/dL AST (17-59) U/L ALT (0-50) U/L Alkaline Phosphatase (38-126) U/L Serum Total Protein (6.3-8.2) g/dL Albumin (3.5-5.0) g/dL Radiology Exams: Radiology Procedures Category Date Time Status CAROTID BILATERAL [US] Routine Exams 08/17/22 13:08 Completed Assessment/Plan (1) Right middle lobe pneumonia Current Visit: Yes Status: Acute Qualifiers: Pneumonia type: due to unspecified organism Qualified Code(s): J18.9 - Pneumonia, unspecified organism Assessment & Plan: improving- feels better, WBC down (18.6). Will have some elevated WBC d/t steroid. On levaquin IV day #4. May be able to d/c tomorrow or in the next few days. Code(s): J18.9 - PNEUMONIA, UNSPECIFIED ORGANISM (2) Leukocytosis Current Visit: Yes Status: Chronic Qualifiers: Leukocytosis type: unspecified Qualified Code(s): D72.829 - Elevated white blood cell count, unspecified Code(s): D72.829 - ELEVATED WHITE BLOOD CELL COUNT, UNSPECIFIED (3) Altered mental status Current Visit: No Status: Chronic Qualifiers: Altered mental status type: disorientation Qualified Code(s): R41.0 - Disorientation, unspecified Code(s): R41.82 - ALTERED MENTAL STATUS, UNSPECIFIED
[2022-08-18] MEDS: Ativan 1 MG PO PRN (21:36)
[2022-08-18] MEDS: ceLEXa 20 MG PO SCH (21:37)
[2022-08-18] MEDS: Avodart 0.5 MG PO SCH (21:37)
[2022-08-18] MEDS: AMITRIPTYLINE 25 MG TABLET PO SCH (21:38)
[2022-08-18] MEDS: NORVASC 5 MG PO SCH (21:38)
[2022-08-18] MEDS: Pepcid 20 MG PO SCH (21:38)
[2022-08-18] MEDS: ZOCOR 20MG PO SCH (21:38)
[2022-08-18] MEDS: solu-MEDROL 40 MG, Sterile H2O 10 ml 1 ML IV SCH ×2 (22:56)
[2022-08-19 05:08] LABS: Absolute Neutrophil Ct (ANC) 18.36 x10^3/uL (1.4-6.9); BASOPHIL % 0.1 % (0.0-0.4); Basophil (Absolute #) 0.03 x10^3/uL (0-0.4); Eosinophil (Absolute #) 0 x10^3/uL (0-0.5); Hematocrit 36.6 % (42-50); Hemoglobin 11.4 g/dL (12.5-18.0); IMMATURE GRAN # 0.39 x10^3u/L (0.00-0.03); IMMATURE GRAN % 1.9 % (0.00-0.4); Lymphocyte (Absolute #) 1.35 x10^3/uL (1.0-4.6); Lymphocytes % 6.4 % (24.0-44.0); Mean Cell Volume 85.1 fL (78-100); Mean Corpuscular Hemoglobin 26.5 pg (26-32); Mean Corpuscular Hgb Concent. 31.1 g/dL (32-36); Mean Platelet Volume 10.3 fL (7.5-11.0); Monocyte (Absolute #) 0.86 x10^3/uL (0.0-1.3); Monocytes % 4.1 % (0.0-12.0); Neutrophil % 87.5 % (36.0-66.0); Platelet Count 286 x10^3/uL (150-450); Red Cell Distribution Width 14.7 % (11.5-14.0)
[2022-08-19] MEDS: OXYCODONE-ACETAMINOPHEN 10-325 PO PRN ×4 (05:16→22:02)
[2022-08-19 05:31] LABS: ALBUMIN 3.4 g/dL (3.5-5.0); ALKALINE PHOSPHATASE 75 U/L (38-126); ANION GAP 8.7 MEQ/L (5-15); BLOOD UREA NITROGEN 27 mg/dL (9-20); CHLORIDE 100 mmol/L (98-107); Calcium 8.4 mg/dL (8.4-10.2); Carbon Dioxide 30 mmol/L (22-30); Creatinine 1 1.09 mg/dL (0.66-1.25); EST GLOMERULAR FILTRATION RATE > 60.0 ML/MIN; Glucose 271 mg/dL (74-106); Potassium 4.2 mmol/L (3.5-5.1); SGOT/AST 20 U/L (17-59); SGPT/ALT 22 U/L (0-50); SODIUM 135 mmol/L (137-145); Total Protein 6.2 g/dL (6.3-8.2)
[2022-08-19] MEDS: PATIENT OWN MEDICATION IH SCH ×2 (06:58→19:18)
[2022-08-19] MEDS: HUMULIN R SQ PRN ×4 (07:31→21:39)
[2022-08-19] MEDS: Lantus Insulin SQ SCH (07:32)
[2022-08-19] MEDS: Ecotrin 325 MG PO SCH (09:21)
[2022-08-19] MEDS: ENOXAPARIN SODIUM SQ SCH (09:21)
[2022-08-19] MEDS: COREG 12.5 MG PO SCH ×2 (09:21→21:37)
[2022-08-19] MEDS: solu-MEDROL 40 MG, Sterile H2O 10 ml 1 ML IV SCH ×4 (09:21→21:38)
[2022-08-19] MEDS: NEURONTIN PO SCH ×2 (09:21→21:36)
[2022-08-19] MEDS: Flomax 0.4 MG PO SCH (09:21)
[2022-08-19] MEDS: Pepcid 20 MG PO SCH ×2 (09:21→21:37)
[2022-08-19] MEDS: Levofloxacin 500MG/100ML D5W 500 MG/100 ML BAG IV SCH (09:22)
--- NOTE | 2022-08-19 13:25 | PCM.NOTE ---
Date and Time: 08/19/22 1321 Subjective Assessment: He is feeling better. This morning, was sitting up on side of bed eating breakfast. Wearing O2 off and on. - Review of Systems Constitutional: No Fever Respiratory: Cough, Short Of Breath Objective Exam General Appearance: no apparent distress, alert, obese Neurologic Exam: oriented x 3, cooperative Skin Exam: normal color, warm, dry, No rash Eye Exam: eyes nml inspection Ears, Nose, Throat Exam: moist mucous membranes Neck Exam: normal inspection Respiratory Exam: diminished breath sounds (Fair AE), No crackles/rales, No rhonchi, No wheezing Cardiovascular Exam: regular rate/rhythm, normal heart sounds, No murmur Gastrointestinal/Abdomen Exam: soft, normal bowel sounds Extremity Exam: normal inspection, No pedal edema, No swelling Back Exam: normal inspection, No rash OBJECTIVE DATA Vital Signs: Vital Signs - 24 hr Temp Pulse Resp BP Pulse Ox 08/19/22 11:31 97.7 F 71 17 122/54 93 L 08/19/22 07:38 97.1 F 71 17 143/82 91 L 08/19/22 06:59 73 16 93 L 08/19/22 04:55 97.1 F 80 18 136/77 94 L 08/19/22 00:00 97.8 F 72 19 137/73 94 L 08/18/22 20:00 97.9 F 90 19 161/85 94 L 08/18/22 18:02 72 18 94 L 08/18/22 16:00 97.3 F 76 18 157/70 91 L Pain Assessment - Last Documented Pain Intensity 7 Pain Scale Used 0-10 Pain Scale Intake and Output: Intake & Output 08/17/22 08/18/22 08/19/22 08/20/22 11:59 11:59 11:59 11:59 Intake Total 4418 1700 780 Balance 4418 1700 780 Weight 112 kg 111.3 kg 110.2 kg Lab Results: Lab Results-Last 24 Hours 08/18/22 08/18/22 08/19/22 Range/Units 16:11 20:43 04:55 WBC 21.0 H (4.0-10.5) x10^3/uL RBC 4.30 (4.1-5.6) x10^6/uL Hgb 11.4 L (12.5-18.0) g/dL Hct 36.6 L (42-50) % MCV 85.1 (78-100) fL MCH 26.5 (26-32) pg MCHC 31.1 L (32-36) g/dL RDW 14.7 H (11.5-14.0) % Plt Count 286 (150-450) x10^3/uL MPV 10.3 (7.5-11.0) fL Gran % 87.5 H (36.0-66.0) % Immature Gran % (Auto) 1.9 H (0.00-0.4) % Nucleat RBC Rel Count 0.0 (0.00-0.1) % Eos # (Auto) 0 (0-0.5) x10^3/uL Immature Gran # (Auto) 0.39 H (0.00-0.03) x10^3u/L Absolute Lymphs (auto) 1.35 (1.0-4.6) x10^3/uL Absolute Monos (auto) 0.86 (0.0-1.3) x10^3/uL Absolute Nucleated RBC 0.00 (0.00-0.01) x10^3u/L Lymphocytes % 6.4 L (24.0-44.0) % Monocytes % 4.1 (0.0-12.0) % Eosinophils % 0.0 (0.00-5.0) % Basophils % 0.1 (0.0-0.4) % Absolute Granulocytes 18.36 H (1.4-6.9) x10^3/uL Basophils # 0.03 (0-0.4) x10^3/uL Sodium (137-145) mmol/L Potassium (3.5-5.1) mmol/L Chloride (98-107) mmol/L Carbon Dioxide (22-30) mmol/L Anion Gap (5-15) MEQ/L BUN (9-20) mg/dL Creatinine (0.66-1.25) mg/dL Estimated GFR ML/MIN Glucose (74-106) mg/dL POC Glucometer 341 H 406 H (74 to 106) mg/dL Calcium (8.4-10.2) mg/dL Total Bilirubin (0.2-1.3) mg/dL AST (17-59) U/L ALT (0-50) U/L Alkaline Phosphatase (38-126) U/L Serum Total Protein (6.3-8.2) g/dL Albumin (3.5-5.0) g/dL 08/19/22 08/19/22 08/19/22 Range/Units 04:55 07:13 11:25 WBC (4.0-10.5) x10^3/uL RBC (4.1-5.6) x10^6/uL Hgb (12.5-18.0) g/dL Hct (42-50) % MCV (78-100) fL MCH (26-32) pg MCHC (32-36) g/dL RDW (11.5-14.0) % Plt Count (150-450) x10^3/uL MPV (7.5-11.0) fL Gran % (36.0-66.0) % Immature Gran % (Auto) (0.00-0.4) % Nucleat RBC Rel Count (0.00-0.1) % Eos # (Auto) (0-0.5) x10^3/uL Immature Gran # (Auto) (0.00-0.03) x10^3u/L Absolute Lymphs (auto) (1.0-4.6) x10^3/uL Absolute Monos (auto) (0.0-1.3) x10^3/uL Absolute Nucleated RBC (0.00-0.01) x10^3u/L Lymphocytes % (24.0-44.0) % Monocytes % (0.0-12.0) % Eosinophils % (0.00-5.0) % Basophils % (0.0-0.4) % Absolute Granulocytes (1.4-6.9) x10^3/uL Basophils # (0-0.4) x10^3/uL Sodium 135 L (137-145) mmol/L Potassium 4.2 (3.5-5.1) mmol/L Chloride 100 (98-107) mmol/L Carbon Dioxide 30 (22-30) mmol/L Anion Gap 8.7 (5-15) MEQ/L BUN 27 H (9-20) mg/dL Creatinine 1.09 (0.66-1.25) mg/dL Estimated GFR > 60.0 ML/MIN Glucose 271 H (74-106) mg/dL POC Glucometer 271 H 316 H (74 to 106) mg/dL Calcium 8.4 (8.4-10.2) mg/dL Total Bilirubin 0.30 (0.2-1.3) mg/dL AST 20 (17-59) U/L ALT 22 (0-50) U/L Alkaline Phosphatase 75 (38-126) U/L Serum Total Protein 6.2 L (6.3-8.2) g/dL Albumin 3.4 L (3.5-5.0) g/dL Radiology Exams: Radiology Procedures Category Date Time Status CAROTID BILATERAL [US] Routine Exams 08/17/22 13:08 Completed Multi-Disciplinary Progress Notes: Multi-Disciplinary Progress Notes 08/19/22 10:10 Case Management Note by Tiera Sanders S/W PATIENT- HE CONTINUES TO DENY ANY NEW NEEDS AT TIME OF DC Initialized on 08/19/22 10:10 - END OF NOTE Assessment/Plan (1) Right middle lobe pneumonia Current Visit: Yes Status: Acute Qualifiers: Pneumonia type: due to unspecified organism Qualified Code(s): J18.9 - Pneumonia, unspecified organism Assessment & Plan: Improved. On day #5 of Levaquin. Will likely discharge to home tomorrow. Code(s): J18.9 - PNEUMONIA, UNSPECIFIED ORGANISM (2) Leukocytosis Current Visit: Yes Status: Chronic Qualifiers: Leukocytosis type: unspecified Qualified Code(s): D72.829 - Elevated white blood cell count, unspecified Assessment & Plan: This is somewhat chronic for him, so will need to follow clinical course more than these numbers. He will have outpatient appt set up with Dr. Pathak by airline stewardess. Code(s): D72.829 - ELEVATED WHITE BLOOD CELL COUNT, UNSPECIFIED (3) Altered mental status Current Visit: No Status: Chronic Qualifiers: Altered mental status type: disorientation Qualified Code(s): R41.0 - Disorientation, unspecified Assessment & Plan: has seemed fine the past few days. Code(s): R41.82 - ALTERED MENTAL STATUS, UNSPECIFIED
[2022-08-19] MEDS: Avodart 0.5 MG PO SCH (21:36)
[2022-08-19] MEDS: AMITRIPTYLINE 25 MG TABLET PO SCH (21:37)
[2022-08-19] MEDS: ceLEXa 20 MG PO SCH (21:38)
[2022-08-19] MEDS: NORVASC 5 MG PO SCH (21:46)
[2022-08-19] MEDS: ZOCOR 20MG PO SCH (22:02)
[2022-08-19] MEDS: Ativan 1 MG PO PRN (22:03)
[2022-08-20 01:23] VITALS: BP 129/66
[2022-08-20 05:28] VITALS: O2SAT 96
[2022-08-20] MEDS: OXYCODONE-ACETAMINOPHEN 10-325 PO PRN (06:06)
[2022-08-20 07:06] LABS: Hematocrit 37.8 % (42-50); Hemoglobin 11.9 g/dL (12.5-18.0); Mean Cell Volume 85.3 fL (78-100); Mean Corpuscular Hemoglobin 26.9 pg (26-32); Mean Corpuscular Hgb Concent. 31.5 g/dL (32-36); Mean Platelet Volume 10.3 fL (7.5-11.0); Platelet Count 296 x10^3/uL (150-450); Red Blood Count 4.43 x10^6/uL (4.1-5.6); Red Cell Distribution Width 14.7 % (11.5-14.0); White Blood Count 21.4 x10^3/uL (4.0-10.5)
[2022-08-20] MEDS: PATIENT OWN MEDICATION IH SCH (07:12)
[2022-08-20 07:17] VITALS: PULSE 76
[2022-08-20] MEDS: HUMULIN R SQ PRN (07:26)
[2022-08-20] MEDS: Lantus Insulin SQ SCH (07:27)
--- NOTE | 2022-08-20 07:44 | PCM.DS ---
Discharge Summary Date of Admission: 08/14/22 17:20 Admitting Physician: GAB MOLINA Primary Care Provider: LAWANDA ELMORE Allergies Allergies No Known Drug Allergies Allergy (Verified 08/13/22 15:15) Hospital Summary - Hospital Course Hospital Course: is a 61 year old male pt of Dr. Elmore's with CAD, COPD, HLD, adrenal insufficiency, HTN, DMII, NICOL, and PUD who was admitted through ER with CP and PNA. CXR showed R lung ground glass opacities - pt was started on zithromax and IV solumedrol, 60mg q6h. WBC 17.1. Troponins were negative and EKG without acute ST changes. After 2 days his WBC count had elevated to and was persistent at 27,000. His antibiotics were changed to IV levaquin and he started improving clinically. The WBC have remained elevated - lowest was 18,600, and today they are 21,400. He states his WBC have been elevated for some time, and I see from his medical record that most of his CBCs show leukocytosis back to 2017. He will be seeing hematology after discharge (08/30/22). Today, his breathing is "great," and the best he's had in some time. Tolerating po well. He will be discharged to home on po levaquin x4d (10d total levaquin) and 6 days of po prednisone. F/u with Dr. Elmore in 1 week. - Vitals & Intake/Output Vital Signs: Vital Signs Temperature 98.4 F 08/20/22 00:00 Pulse Rate 76 08/20/22 07:12 Respiratory Rate 16 08/20/22 07:12 Blood Pressure 129/66 08/20/22 00:00 O2 Sat by Pulse Oximetry 96 08/20/22 07:12 Intake & Output: Intake & Output 08/17/22 08/18/22 08/19/22 08/20/22 11:59 11:59 11:59 11:59 Intake Total 4418 9532 363 1618 Balance 4418 2674 714 6462 Weight 112 kg 111.3 kg 110.2 kg 110.1 kg - Lab Result Diagrams: 08/20/22 06:46 08/19/22 04:55 Lab Results-Last 24 Hrs: Lab Results-Last 24 Hours 08/19/22 08/19/22 08/19/22 Range/Units 11:25 16:12 20:46 WBC (4.0-10.5) x10^3/uL RBC (4.1-5.6) x10^6/uL Hgb (12.5-18.0) g/dL Hct (42-50) % MCV (78-100) fL MCH (26-32) pg MCHC (32-36) g/dL RDW (11.5-14.0) % Plt Count (150-450) x10^3/uL MPV (7.5-11.0) fL POC Glucometer 316 H 244 H 357 H (74 to 106) mg/dL 08/20/22 08/20/22 Range/Units 06:46 07:06 WBC 21.4 H (4.0-10.5) x10^3/uL RBC 4.43 (4.1-5.6) x10^6/uL Hgb 11.9 L (12.5-18.0) g/dL Hct 37.8 L (42-50) % MCV 85.3 (78-100) fL MCH 26.9 (26-32) pg MCHC 31.5 L (32-36) g/dL RDW 14.7 H (11.5-14.0) % Plt Count 296 (150-450) x10^3/uL MPV 10.3 (7.5-11.0) fL POC Glucometer 271 H (74 to 106) mg/dL Micro Results-Entire Visit: Microbiology 08/15/22 08:38 Blood Culture Gram Stain - Final Blood Not Reportable Blood Culture - Final NO GROWTH 08/15/22 08:30 Blood Culture Gram Stain - Final Blood Not Reportable Blood Culture - Final NO GROWTH 08/14/22 20:51 Gram Stain - Final Sputum - Expectorant Sputum Culture - Final Escherichia Coli Accuchecks Date 08/20/22 Date 08/19/22 Date 08/19/22 Time 07:34 - Procedures and Test Procedures and Tests throughout Hospitalization: Therapy Orders & Screens 08/13/22 22:33 EKG Q8HX2,QAMX3,PRN Comment: Oxygen Nasal Cannula 2 lpm Comment: Respiratory Therapy Consult ONCE Comment: Reason For Exam: 08/13/22 23:13 RT Screen per Nursing Assess ONCE Comment: Protocol Order Physician Instructions: Greater than 3 points order RT Admission Screen Reason For Exam: Triggered on Admission Diagnosis: Pneumonia Diagnosis: Pneumonia Pneumonia: Yes Home O2: No Asthma: Yes CHF: Yes Home CPAP/BIPAP: Yes Home Nebs/MDI: Yes Total Points: 20 08/14/22 01:00 Respiratory Therapy Assessment DAILY Comment: Diagnosis: Pneumonia 08/14/22 05:00 EKG DAILY Comment: Diagnosis: Pneumonia 08/14/22 07:00 Incentive Spirometry TID Comment: Diagnosis: Pneumonia 08/14/22 21:52 BiPap/CPAP ROUTINE Comment: Diagnosis: Pneumonia 08/15/22 05:00 EKG DAILY Comment: Diagnosis: Pneumonia 08/15/22 07:00 Respiratory MDI BID Comment: Diagnosis: Pneumonia 08/16/22 05:00 EKG DAILY Comment: Diagnosis: Pneumonia 08/17/22 05:00 EKG DAILY Comment: Diagnosis: Pneumonia Discharge Exam General Appearance: no apparent distress, obese Neurologic Exam: oriented x 3, cooperative Eye Exam: eyes nml inspection Ears, Nose, Throat Exam: moist mucous membranes Neck Exam: normal inspection Respiratory Exam: normal breath sounds, lungs clear, No crackles/rales, No rhonchi, No wheezing Cardiovascular Exam: regular rate/rhythm, normal heart sounds, No murmur Gastrointestinal/Abdomen Exam: soft, normal bowel sounds, No tenderness, No mass, No guarding, No rebound Back Exam: normal inspection, No rash Final Diagnosis/Problem List - Final Discharge Diagnosis/Problem (1) Right middle lobe pneumonia Current Visit: Yes Status: Acute Assessment & Plan: On Levaquin day #6 today and will have him finish 10 d total levaquin. Discharge to home today. Code(s): J18.9 - PNEUMONIA, UNSPECIFIED ORGANISM (2) Leukocytosis Current Visit: Yes Status: Chronic Assessment & Plan: Acute on chronic, and likely increased somewhat due to steroids. Seeing Dr. Pinzon on 08/30/22. Code(s): D72.829 - ELEVATED WHITE BLOOD CELL COUNT, UNSPECIFIED (3) Altered mental status Current Visit: No Status: Chronic Assessment & Plan: Family says he has some disorientation intermittently. MRI brain and carotid dopplers were wnl. F/u with Dr. Elmore. Code(s): R41.82 - ALTERED MENTAL STATUS, UNSPECIFIED - Discharge Disposition: Home, Self-Care Condition: Good Prescriptions: New Lactobacillus Acidophilus [Acidophilus TABLET] 1 tab PO BID #10 tablet Albuterol Sulfate [Albuterol Sulfate Hfa] 8.5 gm IH QID PRN 30 Days #1 unit PRN Reason: shortness of breath Prednisone 20 mg [Deltasone 20 mg] 20 mg PO DAILY #15 tablet Levofloxacin [Levofloxacin 500 MG Tablet] 500 mg PO DAILY #4 tablet Continue Oxycodone / APAP 10/325 mg [Oxycodone-Acetaminophen 10-325] 1 tab PO QID PRN PRN PRN Reason: Pain Tamsulosin HCl 0.4 mg [Flomax 0.4 MG] 0.4 mg PO DAILY Citalopram Hydrobromide 20 mg* [ceLEXa 20 MG] 40 mg PO HS Amlodipine Besylate 5 mg [Norvasc 5 mg] 10 mg PO HS Simvastatin 40 mg PO HS Gabapentin 600 mg PO BID Amitriptyline HCl 25 mg [Amitriptyline 25 mg Tablet] 25 mg PO HS Dutasteride 0.5 MG [Avodart 0.5 MG] 0.5 mg PO HS Carvedilol [Coreg] 12.5 mg PO BID Ferrous Sulfate [Iron] 325 mg PO BID Cyanocobalamin (Vitamin B-12) [Vitamin B-12] 1,000 mg PO UD Testosterone Cypionate 200 mg IM UD Loratadine 10 mg [Claritin 10 mg] 10 mg PO UD PRN PRN Reason: Allergies Dulaglutide [Trulicity] 0.75 mg SQ WEEKLY Instructions: Pneumonia, Adult (DC) Additional Instructions: . Follow up with: TOMMY PINZON [COURTESY STAFF] - 08/30/22 2:30 pm LAWANDA ELMORE [Primary Care Provider] -
[2022-08-20 08:52] LABS: ALBUMIN 3.5 g/dL (3.5-5.0); ALKALINE PHOSPHATASE 78 U/L (38-126); ANION GAP 4.7 MEQ/L (5-15); BLOOD UREA NITROGEN 24 mg/dL (9-20); CHLORIDE 100 mmol/L (98-107); Calcium 8.3 mg/dL (8.4-10.2); Carbon Dioxide 33 mmol/L (22-30); Creatinine 1 1.12 mg/dL (0.66-1.25); EST GLOMERULAR FILTRATION RATE > 60.0 ML/MIN; Glucose 271 mg/dL (74-106); Potassium 4.4 mmol/L (3.5-5.1); SGOT/AST 29 U/L (17-59); SGPT/ALT 30 U/L (0-50); SODIUM 133 mmol/L (137-145); Total Protein 6.2 g/dL (6.3-8.2)
== END 2022-08-20 08:30 | disposition home or self-care (01) | DRG 194 ==
LOC: ED 15:03 → MED SURG 22:27 → OBSVTOIN 08-14 17:20
PROVIDERS: ADMIT Family Medicine; ATTEND Family Medicine
DX: J18.9 Pneumonia, unspecified organism (principal); E87.1 Hypo-osmolality and hyponatremia; D72.829 Elevated white blood cell count, unspecified; R41.82 Altered mental status, unspecified; I25.10 Atherosclerotic heart disease of native coronary artery without angina pectoris; J44.9 Chronic obstructive pulmonary disease, unspecified; I10 Essential (primary) hypertension; E11.9 Type 2 diabetes mellitus without complications; R07.9 Chest pain, unspecified; E87.5 Hyperkalemia; M54.9 Dorsalgia, unspecified; Z79.899 Other long term (current) drug therapy; Z20.828 Contact with and (suspected) exposure to other viral communicable diseases
CPT/HCPCS: 0241U; 36000; 36415; 70470; 70553; 71045; 71046; 80053; 80061; 81001; 82947; 83721; 83735; 83880; 84145; 84484; 85025; 85027; 85379; 87040; 87070; 87077; 87186; 93005; 93041; 93268; 93880; 94640; 94760; 96365; 96374; 96375; 99284; G0378; J0456; J0696; J1170; J1650; J1815; J1817; J1956; J2270; J2920; J2930; A9270-GY

== ENCOUNTER 2022-09-22 10:32 | Emergency (ER) | payer MEDICARE ==
--- NOTE | 2022-09-22 11:20 | XRAY ---
Indication: Cough. Comparison: August 15, 2022 Portable chest is now clear again with incidental left hemidiaphragm elevation. Heart not enlarged. Bony thorax intact again with mild degenerative changes. No acute findings.
[2022-09-22 11:21] LABS: Group A Strep DETECTED (NEGATIVE)
--- NOTE | 2022-09-22 11:35 | ERPHSYRPT ---
- History of Present Illness Time Seen by Provider: 09/22/22 11:37 Source: patient Exam Limitations: no limitations Patient Subjective Stated Complaint: Pt states "I have a sore throat, cough, short of breath." Triage Nursing Assessment: PT presented alert and oriented X 3, skin pwd. Pt ambulates with an uprght steady gait, able to speak in clear full sentences pt in no apparent respiratroy distress. Pt has intermittant hoarse barking cough Physician History: Patient is a 61-year-old male presents to our ED with his via private vehicle for evaluation of sore throat cough shortness of breath and pain between his scapula. Patient states he has a recent history of a pneumonia. Patient treated with a course of antibiotics and steroids. Patient thinks that he may have recurrence of his pneumonia. Patient's symptoms are progressive. Symptoms are moderate in intensity. No specific worsening or improving factors. No trauma. No fever. No rash. Patient voices no other complaints or concerns at this time. Portions of this note were created with voice recognition technology. There may be grammatical, spelling, punctuation or sound alike errors Timing/Duration: today Severity: moderate Modifying Factors: Improves With: nothing Associated Symptoms: shortness of breath, cough, other (Upper back pain) Allergies/Adverse Reactions: No Known Drug Allergies Allergy (Verified 08/13/22 15:15) Home Medications: Amlodipine Besylate 5 mg [Norvasc 5 mg] 10 mg PO HS 05/22/19 [History] Citalopram Hydrobromide 20 mg* [ceLEXa 20 MG] 40 mg PO HS 05/22/19 [History] Oxycodone / APAP 10/325 mg [Oxycodone-Acetaminophen 10-325] 1 tab PO QID PRN PRN 05/22/19 [History] Simvastatin 40 mg PO HS 05/22/19 [History] Tamsulosin HCl 0.4 mg [Flomax 0.4 MG] 0.4 mg PO DAILY 05/22/19 [History] Amitriptyline HCl 25 mg [Amitriptyline 25 mg Tablet] 25 mg PO HS 06/23/22 [History] Carvedilol [Coreg] 12.5 mg PO BID 06/29/22 [History] Dutasteride 0.5 MG [Avodart 0.5 MG] 0.5 mg PO HS 06/29/22 [History] Cyanocobalamin (Vitamin B-12) [Vitamin B-12] 1,000 mg PO UD 08/13/22 [History] Dulaglutide [Trulicity] 0.75 mg SQ WEEKLY 08/13/22 [History] Ferrous Sulfate [Iron] 325 mg PO BID 08/13/22 [History] Loratadine 10 mg [Claritin 10 mg] 10 mg PO UD PRN 08/13/22 [History] Testosterone Cypionate 200 mg IM UD 08/13/22 [History] Pregabalin [Lyrica] 75 mg PO BID 09/22/22 [History] Hx Tetanus, Diphtheria Vaccination/Date Given: No Hx Influenza Vaccination/Date Given: Yes Hx Pneumococcal Vaccination/Date Given: Yes Immunizations Up to Date: Yes Travel Risk - International Travel Have you traveled outside of the country in past 3 weeks: No - Coronavirus Screening Are you exhibiting any of the following symptoms?: Yes Symptoms: Cough: New Onset, Shortness of Breath, Headaches/Body Aches/Fatigue Close contact with a COVID-19 positive Pt in past 14-21 Days: No - Vaccine Status Have you recieved a Covid-19 vaccination: Yes 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: [employer] - Vaccination Dates Date of 2cond Vaccination (if applicable): 10/27/20 - Review of Systems Constitutional: No Symptoms, No Fever, No Chills Eyes: No Symptoms Ears, Nose, & Throat: No Symptoms Respiratory: No Symptoms, No Cough, No Dyspnea Cardiac: No Symptoms, No Chest Pain, No Edema, No Syncope Abdominal/Gastrointestinal: No Symptoms, No Abdominal Pain, No Nausea, No Vomiting, No Diarrhea Genitourinary Symptoms: No Symptoms, No Dysuria Musculoskeletal: No Symptoms, No Back Pain, No Neck Pain Skin: No Symptoms, No Rash Neurological: No Symptoms, No Dizziness, No Focal Weakness, No Sensory Changes Psychological: No Symptoms Endocrine: No Symptoms Hematologic/Lymphatic: No Symptoms Immunological/Allergic: No Symptoms All Other Systems: Reviewed and Negative - Past Medical History Pertinent Past Medical History: Yes Neurological History: No Pertinent History ENT History: No Pertinent History Cardiac History: Coronary Artery Disease, High Cholesterol, Hypertension Respiratory History: COPD, Sleep Apnea Endocrine Medical History: Adrenal Insufficiency, Diabetes Type II Musculoskeletal History: Osteoarthritis GI Medical History: Ulcer History: No Pertinent History Psycho-Social History: Depression Male Reproductive Disorders: Prostate Problems Other Medical History: minor heart blockage, no stints. Back surgery. - Past Surgical History Past Surgical History: Yes Neuro Surgical History: No Pertinent History Cardiac: Cardiac Catheterization Respiratory: No Pertinent History Gastrointestinal: Cholecystectomy Genitourinary: No Pertinent History Musculoskeletal: Joint Replacement, Orthopedic Surgery Male Surgical History: No Pertinent History Other Surgical History: gastric bypass. rt knee arthroscopy and replacement, VINECNT - Social History Smoking Status: Never smoker Exposure to second hand smoke: No Drug Use: none Patient Lives Alone: No - Nursing Vital Signs Nursing Vital Signs: Initial Vital Signs Temperature 97.2 F 09/22/22 10:38 Pulse Rate 114 H 09/22/22 10:38 Respiratory Rate 22 09/22/22 10:38 Blood Pressure 133/86 09/22/22 10:38 O2 Sat by Pulse Oximetry 95 09/22/22 10:38 Pain Scale Pain Intensity 4 - Physical Exam General Appearance: no apparent distress, alert Eye Exam: PERRL/EOMI, eyes nml inspection Ears, Nose, Throat Exam: normal ENT inspection, TMs normal, pharynx normal, moist mucous membranes Neck Exam: normal inspection, non-tender, supple, full range of motion, other (Slightly enlarged appearing thyroid gland. We will check TSH) Respiratory Exam: normal breath sounds, lungs clear, airway intact, No respiratory distress Cardiovascular Exam: regular rate/rhythm, normal heart sounds, normal peripheral pulses Gastrointestinal/Abdomen Exam: soft, normal bowel sounds, No tenderness, No mass Back Exam: normal inspection, normal range of motion, No CVA tenderness, No vertebral tenderness Extremity Exam: normal inspection, normal range of motion, pelvis stable Neurologic Exam: alert, oriented x 3, cooperative, normal mood/affect, nml cerebellar function, nml station & gait, sensation nml, No motor deficits Skin Exam: normal color, warm, dry, No rash Lymphatic Exam: No adenopathy SpO2 Interpretation: normal SpO2: 97 O2 Delivery: Room Air - Course Nursing assessment & vital signs reviewed: Yes - Radiology Exams Chest X-ray Interpretation: Teleradiologist Report (No acute findings) - CT Exams Chest CT Interpretation: Tele-radiologist Report (No central PE. No acute cardiopulmonary abnormalities. Clinical findings include left hemidiaphragm elevation, flowing thoracic osteophytes fatty liver and a right renal cyst.) Ordered Tests: Active Orders 24 hr Category Date Time Status CHEST 1 VIEW (PORTABLE) Stat Exams 09/22/22 10:49 Completed CHEST WITH CONTRAST [CT] Stat Exams 09/22/22 12:20 Completed BLOOD CULTURE Stat Lab 09/22/22 11:45 Received CBC W DIFF Stat Lab 09/22/22 11:37 Completed CMP Stat Lab 09/22/22 11:37 Completed D-DIMER QUANTITATIVE Stat Lab 09/22/22 11:37 Completed Manual Differential NC Stat Lab 09/22/22 11:37 Completed NT PRO BNPII Stat Lab 09/22/22 11:00 Completed TROPONIN Q4H Lab 09/22/22 11:37 Completed TROPONIN Q4H Lab 09/22/22 15:30 Ordered TROPONIN Q4H Lab 09/22/22 19:30 Ordered TSH [TSH, 3RD Generation] Stat Lab 09/22/22 11:00 Completed Medication Summary Discontinued Medications Generic Name Dose Route Start Last Admin Trade Name Freq PRN Reason Stop Dose Admin Nitrofurantoin Macrocrystals 100 mg 09/22/22 13:43 09/22/22 13:47 Nitrofurantoin Macro 100 Mg Capsule PO 09/22/22 13:44 100 mg STAT ONE Administration Nitrofurantoin Macrocrystals Confirm 09/22/22 13:46 Nitrofurantoin Macro 100 Mg Capsule Administered 09/22/22 13:47 Dose 100 mg .ROUTE .[employer] ONE Lab/Rad Data: Laboratory Result Diagrams 09/22/22 11:37 09/22/22 11:37 Laboratory Results 09/22/22 09/22/22 09/22/22 Range/Units 11:37 11:37 11:37 WBC 24.2 H (4.0-10.5) x10^3/uL RBC 4.84 (4.1-5.6) x10^6/uL Hgb 13.2 (12.5-18.0) g/dL Hct 42.6 (42-50) % MCV 88.0 (78-100) fL MCH 27.3 (26-32) pg MCHC 31.0 L (32-36) g/dL RDW 15.6 H (11.5-14.0) % Plt Count 266 (150-450) x10^3/uL MPV 10.9 (7.5-11.0) fL Segmented Neutrophils 92 H (36.-66.) % Lymphocytes (Manual) 4 L (24-44) % Monocytes (Manual) 3 (0.0-12.0) % Eosinophils (Manual) 1 (0.00-3.0) % Toxic Granulation 1+ Platelet Estimate NORMAL (NORMAL) RBC Morphology ABNORMAL Anisocytosis 1+ D-Dimer (0.0-0.50) mg/L Sodium 137 (137-145) mmol/L Potassium 3.9 (3.5-5.1) mmol/L Chloride 101 (98-107) mmol/L Carbon Dioxide 26 (22-30) mmol/L Anion Gap 14.9 (5-15) MEQ/L BUN 15 (9-20) mg/dL Creatinine 1.16 (0.66-1.25) mg/dL Estimated GFR > 60.0 ML/MIN Glucose 182 H (74-106) mg/dL Calcium 9.0 (8.4-10.2) mg/dL Total Bilirubin 0.50 (0.2-1.3) mg/dL AST 29 (17-59) U/L ALT 24 (0-50) U/L Alkaline Phosphatase 151 H (38-126) U/L Troponin I 0.014 (0.000-0.034) ng/mL NT-Pro-B Natriuret Pep (<300) pg/mL Serum Total Protein 7.3 (6.3-8.2) g/dL Albumin 4.1 (3.5-5.0) g/dL TSH 3rd Generation (0.47-4.68) mIU/L Influenza Type A Ag (NEGATIVE) Influenza Type B Ag (NEGATIVE) RSV (PCR) (NEGATIVE) SARS-CoV-2 (PCR) (NEGATIVE) Group A Strep Antibody (NEGATIVE) 09/22/22 09/22/22 09/22/22 Range/Units 11:37 11:00 10:57 WBC (4.0-10.5) x10^3/uL RBC (4.1-5.6) x10^6/uL Hgb (12.5-18.0) g/dL Hct (42-50) % MCV (78-100) fL MCH (26-32) pg MCHC (32-36) g/dL RDW (11.5-14.0) % Plt Count (150-450) x10^3/uL MPV (7.5-11.0) fL Segmented Neutrophils (36.-66.) % Lymphocytes (Manual) (24-44) % Monocytes (Manual) (0.0-12.0) % Eosinophils (Manual) (0.00-3.0) % Toxic Granulation Platelet Estimate (NORMAL) RBC Morphology Anisocytosis D-Dimer 0.65 H* (0.0-0.50) mg/L Sodium (137-145) mmol/L Potassium (3.5-5.1) mmol/L Chloride (98-107) mmol/L Carbon Dioxide (22-30) mmol/L Anion Gap (5-15) MEQ/L BUN (9-20) mg/dL Creatinine (0.66-1.25) mg/dL Estimated GFR ML/MIN Glucose (74-106) mg/dL Calcium (8.4-10.2) mg/dL Total Bilirubin (0.2-1.3) mg/dL AST (17-59) U/L ALT (0-50) U/L Alkaline Phosphatase (38-126) U/L Troponin I (0.000-0.034) ng/mL NT-Pro-B Natriuret Pep 265 (<300) pg/mL Serum Total Protein (6.3-8.2) g/dL Albumin (3.5-5.0) g/dL TSH 3rd Generation 2.250 (0.47-4.68) mIU/L Influenza Type A Ag NEGATIVE (NEGATIVE) Influenza Type B Ag NEGATIVE (NEGATIVE) RSV (PCR) NEGATIVE (NEGATIVE) SARS-CoV-2 (PCR) NEGATIVE (NEGATIVE) Group A Strep Antibody DETECTED (NEGATIVE) - Progress Progress: improved Progress Note: Patient reassessed. He feels well. Work-up reveals a leukocytosis. Patient states that he chronically runs elevated WBC. Patient states his last outpatient WBC was 23. Patient has an appointment scheduled with hematology oncology Dr. Quiros for this abnormality. Patient is a diabetic. Patient glucose 182. Positive strep throat. Other test ordered include chest x-ray. CT a chest was ordered due to positive D-dimer. CTA chest negative for PE. Blood culture obtained due to leukocytosis. CBC CMP ordered as well. As stated previously. Leukocytosis observed on CBC. COVID test negative. BNP normal. Troponin negative. Patient appears to have a large thyroid on exam. TSH within normal limits. Will discharge home. Patient received a dose of Augmentin in our ED. A prescription for the same was forwarded to patient's pharmacy. Patient states that patient's hematology oncologist wants patient off of steroids for a prolonged period of time to reassess patient's leukocytosis. Patient's a 61-year-old male presents to our ED with sore throat shortness of breath pain radiating to posterior scapula and body aches. Patient has a his tory of diabetes. Patient has a history of leukocytosis for which she is following up with a hematology oncologist. Patient's complaint is acute. Physical exam showed a mildly erythematous oropharynx. Complexity of problems addressed is low. Patient's problem is acute uncomplicated. No critical care time. Complexity of data reviewed and analyzed is moderate. Test ordered. Test reviewed. Patient served as independent historian however his at bedside provided significant information towards HPI. Patient EKG reviewed and interpreted by Dr. Trent. Risk of complication and or morbidity/mortality of patient management is moderate. Patient received a prescription for Augmentin. Patient agrees to follow-up with his primary care doctor within 48 hours for reevaluation. Diagnoses strep throat. Vital stable. Patient voices no other complaints or concerns at this time. Dictation disclaimer 09/22/22 13:51 Counseled pt/family regarding: lab results, diagnosis, need for follow-up, rad results - Departure Departure Disposition: Home Clinical Impression: Strep throat, Renal cyst, Fatty liver Condition: Stable Critical Care Time: No Referrals: LAWANDA ELMORE [Primary Care Provider] - Follow up/PCP as directed Additional Instructions: Discharge/Care Plan MONA SAUER was seen on 09/22/22 in the Emergency Room. The patient was counseled regarding Diagnosis,Lab results, Imaging studies, need for follow up and when to return to the Emergency Room. Prescriptions given: Discharge Note I have spoken with the patient and/or caregivers. I have explained the patient's condition, diagnosis and treatment plan based on the information available to me at this time. I have answered the patient's and/or caregiver's questions and addressed any concerns. The patient and/or caregivers have as good understanding of the patient's diagnosis, condition and treatment plan as can be expected at this point. The vital signs have been stable. The patient's condition is stable and appropriate for discharge from the emergency department. The patient will pursue further outpatient evaluation with the primary care physician or other designated or consulting physician as outlined in the discharge instructions. The patient and/or caregivers are agreeable to this plan of care and follow-up instructions have been explained in detail. The patient and/or caregivers have received these instruction. The patient/and or caregivers are aware that any significant change in condition or worsening of symptoms should prompt an immediate return to this or the closest emergency department or call 911. Prescriptions: Amox Tr/Potass Clav. 875 mg [Augmentin 875-125 Tablet] 875 mg PO BID 7 Days #14 tablet
[2022-09-22 11:37] LABS: INFLUENZA A NEGATIVE (NEGATIVE); INFLUENZA B NEGATIVE (NEGATIVE); RESPIRATORY SYNCTIAL VIRUS NEGATIVE (NEGATIVE); SARS-CoV-2 Xpert Express NEGATIVE (NEGATIVE)
[2022-09-22 12:02] LABS: Hematocrit 42.6 % (42-50); Hemoglobin 13.2 g/dL (12.5-18.0); Mean Corpuscular Hemoglobin 27.3 pg (26-32); Mean Platelet Volume 10.9 fL (7.5-11.0); Platelet Count 266 x10^3/uL (150-450); Red Blood Count 4.84 x10^6/uL (4.1-5.6); Red Cell Distribution Width 15.6 % (11.5-14.0); White Blood Count 24.2 x10^3/uL (4.0-10.5)
[2022-09-22 12:07] LABS: ALBUMIN 4.1 g/dL (3.5-5.0); ALKALINE PHOSPHATASE 151 U/L (38-126); ANION GAP 14.9 MEQ/L (5-15); BLOOD UREA NITROGEN 15 mg/dL (9-20); CHLORIDE 101 mmol/L (98-107); Carbon Dioxide 26 mmol/L (22-30); Creatinine 1 1.16 mg/dL (0.66-1.25); EST GLOMERULAR FILTRATION RATE > 60.0 ML/MIN; Glucose 182 mg/dL (74-106); Potassium 3.9 mmol/L (3.5-5.1); SGOT/AST 29 U/L (17-59); SGPT/ALT 24 U/L (0-50); SODIUM 137 mmol/L (137-145); Total Protein 7.3 g/dL (6.3-8.2)
[2022-09-22 12:23] LABS: TSH, 3RD Generation 2.25 mIU/L (0.47-4.68)
[2022-09-22 13:00] LABS: ANISOCYTOSIS 1+; Eosinophil 1 % (0.00-3.0); Lymphocytes 4 % (24-44); Monocyte 3 % (0.0-12.0); Neutrophils 92 % (36.-66.); Platelet Estimate NORMAL (NORMAL); Total Cells Counted 100; Toxic Granulation 1+
--- NOTE | 2022-09-22 13:10 | XRAY ---
Indication: Short of breath. Elevated d-dimer. Pulmonary embolus. Multiple contiguous axial images obtained through the chest using 100 cc Isovue 370 contrast and PE protocol. Comparison: None Poor opacification of the pulmonary arteries limits evaluation for pulmonary embolus. No obvious central pulmonary embolus. Heart not enlarged with prominent epicardiac fat. Aorta is normal in course and caliber. No pathologic mediastinal/hilar lymphadenopathy. Lungs inflated and clear with incidental mild left hemidiaphragm elevation. Bony thorax intact with flowing osteophytes at the spine. Limited upper abdomen demonstrates fatty liver, a few small right renal cysts largest 1.1 cm, cholecystectomy, and gastric bypass surgery. Impression: 1. Pulmonary embolus evaluation limited due to suboptimal contrast opacification. No obvious central pulmonary embolus or acute cardiopulmonary abnormalities. 2. Chronic findings including left hemidiaphragm elevation, flowing thoracic osteophytes, fatty liver, and right renal cysts.
[2022-09-22] MEDS ORDERED: Macrobid 100MG Capsule PO ONE (13:43)
[2022-09-22] MEDS ORDERED: Macrobid 100MG Capsule ONE (13:46)
[2022-09-22 13:57] VITALS: BP 163/103; PULSE 90
[2022-09-22 13:58] VITALS: O2SAT 97
== END 2022-09-22 13:59 | disposition home or self-care (01) ==
LOC: ED 10:32
DX: J02.0 Streptococcal pharyngitis (principal); N28.1 Cyst of kidney, acquired; K76.0 Fatty (change of) liver, not elsewhere classified; R05.9 Cough, unspecified; R06.02 Shortness of breath; M54.6 Pain in thoracic spine; E11.9 Type 2 diabetes mellitus without complications; E78.5 Hyperlipidemia, unspecified; I10 Essential (primary) hypertension; Z79.85 Long-term (current) use of injectable non-insulin antidiabetic drugs; Z79.899 Other long term (current) drug therapy; Z20.828 Contact with and (suspected) exposure to other viral communicable diseases
CPT/HCPCS: 0241U; 36415; 71045; 71260; 80053; 83880; 84443; 84484; 85025; 85379; 87040; 87651; 99283; A9270-GY

== ENCOUNTER 2023-03-21 06:05 | Day surgery (SDC) | payer MEDICARE ==
[2023-03-21 06:52] VITALS: RESP 18
[2023-03-21] MEDS ORDERED: Lactated Ringers 1,000 ML IV ONE (07:01)
[2023-03-21] MEDS ORDERED: DIPRIVAN 200 MG/20 ML IV ONE ×2 (07:23→07:40)
[2023-03-21] MEDS ORDERED: Versed 2 MG/2 ML Injection ONE (07:23)
--- NOTE | 2023-03-21 08:28 | OP ---
SURGERY DATE/TIME: 03/21/2023 0733 PREOPERATIVE DIAGNOSES: 1) Epigastric and lower abdominal pain. 2) History of gastric bypass surgery. 3) History of colon polyps. POSTOPERATIVE DIAGNOSES: 1) Gastritis in the gastric remnant. 2) Sigmoid diverticulosis. PROCEDURES: 1) Esophagogastroduodenoscopy with cold forceps biopsy. 2) Colonoscopy. SURGEON: Dr. Hurtado. ANESTHESIA: Medications were given by the anesthesia department. HISTORY: The patient is a 62-year old white male patient presenting with complaints of epigastric pain and also lower abdominal pain. The patient has a history of having gastric bypass performed and he has been having trouble with constipation issues. The patient is felt to need to have endoscopic evaluation. He was appraised of the risks of the procedure including the risk of perforation, phlebitis, untoward reaction to medication, bleeding and missed lesions. The patient verbalized his understanding and desired to have the procedure performed. DESCRIPTION OF PROCEDURE: The patient was given the medications by the anesthesia department. He had continuous pulse oximetry, ECG monitoring and intermittent blood pressure monitoring during the examination. He was placed in the left lateral decubitus position. A bite block was placed and the flexible Olympus gastroscope was used to intubate the oropharynx. A view of the larynx was normal. The scope was easily introduced in the esophagus which appeared to be normal throughout its length. The gastric remnant was entered and appeared to be moderately erythematous. Biopsies were obtained in this area to rule out Helicobacter pylori organisms. The scope was then passed into the small bowel area which appeared to be essentially normal. The stomach was then withdrawn towards the stomach. Again, a retroflex view was obtained of lesser curvature, cardia and fundus regions of the stomach and these were all normal and other than the aforementioned gastritis, no mucosal lesions were encountered. The scope was removed from the patient. Next, a digital rectal examination was performed and revealed normal anal sphincter tone, no masses and normal prostate. The flexible Olympus pediatric colonoscope was used to intubate the rectum. A view of the colon was developed sequentially to the cecum. Upon insertion and withdrawal was noted fair amounts to large amounts of liquid and semi-solid stool remaining. We did our best to clean out the colon as best we could. No other mucosal lesions noted worse that sigmoid diverticula. The scope was removed from the patient who tolerated the procedure well and was sent to OP recovery in good condition. The prep was noted to be fair to poor.
[2023-03-21 08:36] VITALS: O2SAT 96
[2023-03-21 08:43] VITALS: BP 139/83; PULSE 63; TEMP 97.4
== END 2023-03-21 08:45 | disposition home or self-care (01) ==
LOC: SDC 06:05
PROVIDERS: ATTEND Family Medicine
DX: K29.70 Gastritis, unspecified, without bleeding (principal); R10.13 Epigastric pain; R10.30 Lower abdominal pain, unspecified; Z98.84 Bariatric surgery status; Z09 Encounter for follow-up examination after completed treatment for conditions other than malignant neoplasm; Z86.010 Personal history of colon polyps; E11.9 Type 2 diabetes mellitus without complications; K57.30 Diverticulosis of large intestine without perforation or abscess without bleeding
CPT/HCPCS: 82947; 88305; J2250; J2704

== ENCOUNTER 2023-07-03 15:39 | Emergency (ER) | payer MEDICARE ==
[2023-07-03] MEDS ORDERED: DUONEB 0.5-3 MG/3 ml Neb IH ONE ×2 (15:45→16:11)
[2023-07-03] MEDS ORDERED: solu-MEDROL 125 MG, Sterile H2O 10 ml 2 ML IV ONE ×2 (15:45)
[2023-07-03 15:48] VITALS: TEMP 97.6
[2023-07-03] MEDS ORDERED: solu-MEDROL ONE (16:10)
[2023-07-03] MEDS ORDERED: Sterile H2O 10 ml IJ ONE (16:10)
[2023-07-03 16:19] VITALS: PULSE 70; RESP 22
[2023-07-03 16:19] LABS: Absolute Neutrophil Ct (ANC) 9.26 x10^3/uL (1.4-6.9); BASOPHIL % 0.4 % (0.0-0.4); Basophil (Absolute #) 0.05 x10^3/uL (0-0.4); Eosinophil % 1.7 % (0.00-5.0); Hematocrit 40.5 % (42-50); Hemoglobin 12.6 g/dL (12.5-18.0); IMMATURE GRAN # 0.05 x10^3u/L (0.00-0.03); IMMATURE GRAN % 0.4 % (0.00-0.4); Lymphocyte (Absolute #) 1.25 x10^3/uL (1.0-4.6); Lymphocytes % 10.7 % (24.0-44.0); Mean Cell Volume 83.5 fL (78-100); Mean Corpuscular Hgb Concent. 31.1 g/dL (32-36); Mean Platelet Volume 10.8 fL (7.5-11.0); Monocyte (Absolute #) 0.82 x10^3/uL (0.0-1.3); Monocytes % 7.1 % (0.0-12.0); Neutrophil % 79.7 % (36.0-66.0); Platelet Count 271 x10^3/uL (150-450); Red Blood Count 4.85 x10^6/uL (4.1-5.6); Red Cell Distribution Width 15.3 % (11.5-14.0); White Blood Count 11.6 x10^3/uL (4.0-10.5)
[2023-07-03 16:34] LABS: ALBUMIN 4.5 g/dL (3.5-5.0); BILIRUBIN,TOTAL 0.3 mg/dL (0.2-1.3); Calcium 9.1 mg/dL (8.4-10.2); Creatinine 1 1.33 mg/dL (0.66-1.25); EST GLOMERULAR FILTRATION RATE 60.1 ML/MIN; MAGNESIUM 2.1 mg/dL (1.6-2.3); Potassium 4.1 mmol/L (3.5-5.1)
[2023-07-03 16:47] VITALS: O2SAT 94
[2023-07-03 17:00] LABS: INFLUENZA A NEGATIVE (NEGATIVE); INFLUENZA B NEGATIVE (NEGATIVE); SARS-CoV-2 Xpert Express NEGATIVE (NEGATIVE)
[2023-07-03 17:02] LABS: RESPIRATORY SYNCTIAL VIRUS POSITIVE (NEGATIVE)
--- NOTE | 2023-07-03 18:06 | ERPHSYRPT ---
- History of Present Illness Time Seen by Provider: 07/03/23 15:45 Source: patient, family Exam Limitations: no limitations Patient Subjective Stated Complaint: [facility] and diagnosed with sinusitis and was placed on an antibiotic and he is finishing it up, pt is having a hard time catching his breath Triage Nursing Assessment: Pt brought to the ER by his , hypertensive, rates chest pain as 4/10 when he coughs, pulses normal, skin n/w/d, walked into the ER with a stable gait, crackles in lungs Physician History: 62 years old male with history of hypertension, hyperlipidemia, diabetes mellitus presented in the ER with chief complaint of worsening cough and difficulty breathing with wheezing. Patient reports almost a week ago he started to have as a sinus congestion, drainage, was evaluated outpatient and was placed on doxycycline which he has been taking but it seems like everything is settling down in his lungs. He is coughing a lot with no phlegm and because of repeated coughing having lower bilateral rib cage pain. Patient reports he started taking neb treatments yesterday and has multiple rounds but unable to break lose his phlegm. He is also taking Mucinex as well. Denies any fever or chills but because of repeated coughing sometimes he gets out of breath. Denies any known sick contacts. Allergies/Adverse Reactions: levofloxacin [From Levaquin] Adverse Reaction (Intermediate, Verified 07/03/23 15:47) nausea Home Medications: Citalopram Hydrobromide 20 mg* [ceLEXa 20 MG] 40 mg PO HS 05/22/19 [History] Tamsulosin HCl 0.4 mg [Flomax 0.4 MG] 0.4 mg PO DAILY 05/22/19 [History] Amitriptyline HCl 25 mg [Amitriptyline 25 mg Tablet] 25 mg PO HS 06/23/22 [History] carvediloL [Coreg] 3.125 mg PO BID 06/29/22 [History] Cyanocobalamin (Vitamin B-12) [Vitamin B-12] 1,000 mg PO UD 08/13/22 [History] Loratadine 10 mg [Claritin 10 mg] 10 mg PO UD PRN 08/13/22 [History] Testosterone Cypionate 200 mg IM UD 08/13/22 [History] Pregabalin [Lyrica] 75 mg PO BID 09/22/22 [History] Atorvastatin Calcium 40 mg PO DAILY 02/03/23 [History] Budesonide/Glycopyr/Formoterol [Breztri Aerosphere Inhaler] 5.9 gm IH BID 02/03/23 [History] Ergocalciferol (Vitamin D2) [Drisdol] 1,250 mcg PO UD 02/03/23 [History] Hydrocodone/Acetaminophen [Hydrocodone-Acetamin 10-325 mg] 1 each PO QID PRN PRN 02/03/23 [History] Insulin Lispro [Humalog Kwikpen U-200] 200 unit SQ UD 02/03/23 [History] Omeprazole 20 mg PO DAILY 02/03/23 [History] glyBURIDE [Glyburide] 1.5 mg PO DAILY 02/03/23 [History] Hx Tetanus, Diphtheria Vaccination/Date Given: No Hx Influenza Vaccination/Date Given: Yes Hx Pneumococcal Vaccination/Date Given: Yes Travel Risk - International Travel Have you traveled outside of the country in past 3 weeks: No - Coronavirus Screening Are you exhibiting any of the following symptoms?: No Close contact with a COVID-19 positive Pt in past 14-21 Days: No - Vaccine Status Have you recieved a Covid-19 vaccination: Yes 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: [employer] - Vaccination Dates Date of 2cond Vaccination (if applicable): 10/27/20 - Review of Systems Constitutional: Fatigue, Weakness Eyes: No Symptoms Ears, Nose, & Throat: Nose Congestion, Sinus Drainage, Throat Swelling Respiratory: Cough, Dyspnea Cardiac: Chest Pain Abdominal/Gastrointestinal: No Symptoms Genitourinary Symptoms: No Symptoms Musculoskeletal: Myalgias Skin: No Symptoms Neurological: Headache Psychological: No Symptoms Endocrine: No Symptoms Hematologic/Lymphatic: No Symptoms Immunological/Allergic: No Symptoms - Past Medical History Pertinent Past Medical History: Yes Neurological History: No Pertinent History ENT History: No Pertinent History Cardiac History: Coronary Artery Disease, High Cholesterol, Hypertension Respiratory History: COPD, Sleep Apnea Endocrine Medical History: Adrenal Insufficiency, Diabetes Type II Musculoskeletal History: Osteoarthritis GI Medical History: Ulcer History: No Pertinent History Psycho-Social History: Depression Male Reproductive Disorders: Prostate Problems Other Medical History: minor heart blockage, no stents. Back surgery. - Past Surgical History Past Surgical History: Yes Neuro Surgical History: No Pertinent History Cardiac: Cardiac Catheterization Respiratory: No Pertinent History Gastrointestinal: Cholecystectomy Genitourinary: No Pertinent History Musculoskeletal: Joint Replacement, Orthopedic Surgery Male Surgical History: No Pertinent History Other Surgical History: gastric bypass. bilateral knee arthroscopy and replacement, V[facility] - Social History Smoking Status: Never smoker Exposure to second hand smoke: No Drug Use: none Patient Lives Alone: No - Nursing Vital Signs Nursing Vital Signs: Initial Vital Signs Pulse Rate 73 07/03/23 15:38 Respiratory Rate 21 07/03/23 15:38 Blood Pressure 148/63 07/03/23 15:38 O2 Sat by Pulse Oximetry 94 L 07/03/23 15:38 Pain Scale Pain Intensity 4 - Physical Exam General Appearance: no apparent distress, alert Eye Exam: PERRL/EOMI Ears, Nose, Throat Exam: nasal congestion, pharyngeal erythema Neck Exam: normal inspection, non-tender, supple, full range of motion Respiratory Exam: rhonchi, wheezing Cardiovascular/Chest Exam: normal heart sounds, regular rate/rhythm Abdominal/Gastrointestinal Exam: soft, normal bowel sounds, No tenderness Extremity Exam: non-tender, normal range of motion Neurologic Exam: alert, oriented x 3, cooperative, ticket speculator II-XII nml as tested Skin Exam: normal color SpO2 Interpretation: normal SpO2: 94 O2 Delivery: Room Air Ordered Tests: Active Orders 24 hr Category Date Time Status Training And Development Rep STAT Care 07/03/23 15:46 Active EKG-ER Only STAT Care 07/03/23 15:45 Active IV Insertion STAT Care 07/03/23 15:45 Active CHEST 1 VIEW (PORTABLE) Stat Exams 07/03/23 16:38 Taken BLOOD CULTURE Stat Lab 07/03/23 16:05 Received CBC W DIFF Stat Lab 07/03/23 16:15 Completed CMP Stat Lab 07/03/23 16:05 Completed Lactic Acid Stat Lab 07/03/23 16:05 Completed MAGNESIUM Stat Lab 07/03/23 16:05 Completed NT PRO BNPII Stat Lab 07/03/23 16:05 Completed TROPONIN Q4H Lab 07/03/23 16:05 Completed TROPONIN Q4H Lab 07/03/23 20:00 Ordered TROPONIN Q4H Lab 07/04/23 00:00 Ordered Respiratory Therapy Assessment DAILY RT 07/03/23 16:17 Active Medication Summary Discontinued Medications Generic Name Dose Route Start Last Admin Trade Name Freq PRN Reason Stop Dose Admin Albuterol/Ipratropium 3 ml 07/03/23 15:45 07/03/23 16:14 Ipratropium/Albuterol Sulfate 3 Ml Ampul.Neb IH 07/03/23 15:46 3 ml STAT ONE Administration Albuterol/Ipratropium Confirm 07/03/23 16:11 Ipratropium/Albuterol Sulfate 3 Ml Ampul.Neb Administered 07/03/23 16:12 Dose 3 ml IH .STK-MED ONE Methylprednisolone Sodium 0 mg 07/03/23 15:45 07/03/23 16:11 Succinate 125 mg/ Sterile IV 07/03/23 15:46 125 mg Water 2 ml STAT ONE Administration Methylprednisolone Sodium Succinate Confirm 07/03/23 16:10 Methylprednis Sod Succ 125 Mg/2 Ml Vial Administered 07/03/23 16:11 Dose 125 mg .ROUTE .STK-MED ONE Sterile Water Confirm 07/03/23 16:10 Water For Injection,Sterile 10 Ml Vial Administered 07/03/23 16:11 Dose 10 ml IJ .STK-MED ONE Lab/Rad Data: Laboratory Result Diagrams 07/03/23 16:15 07/03/23 16:05 Laboratory Results 07/03/23 07/03/23 07/03/23 Range/Units 16:15 16:05 16:05 WBC 11.6 H (4.0-10.5) x10^3/uL RBC 4.85 (4.1-5.6) x10^6/uL Hgb 12.6 (12.5-18.0) g/dL Hct 40.5 L (42-50) % MCV 83.5 (78-100) fL MCH 26.0 (26-32) pg MCHC 31.1 L (32-36) g/dL RDW 15.3 H (11.5-14.0) % Plt Count 271 (150-450) x10^3/uL MPV 10.8 (7.5-11.0) fL Gran % 79.7 H (36.0-66.0) % Immature Gran % (Auto) 0.4 (0.00-0.4) % Nucleat RBC Rel Count 0.0 (0.00-0.1) % Eos # (Auto) 0.20 (0-0.5) x10^3/uL Immature Gran # (Auto) 0.05 H (0.00-0.03) x10^3u/L Absolute Lymphs (auto) 1.25 (1.0-4.6) x10^3/uL Absolute Monos (auto) 0.82 (0.0-1.3) x10^3/uL Absolute Nucleated RBC 0.00 (0.00-0.01) x10^3u/L Lymphocytes % 10.7 L (24.0-44.0) % Monocytes % 7.1 (0.0-12.0) % Eosinophils % 1.7 (0.00-5.0) % Basophils % 0.4 (0.0-0.4) % Absolute Granulocytes 9.26 H (1.4-6.9) x10^3/uL Basophils # 0.05 (0-0.4) x10^3/uL Sodium (137-145) mmol/L Potassium (3.5-5.1) mmol/L Chloride (98-107) mmol/L Carbon Dioxide (22-30) mmol/L Anion Gap (5-15) MEQ/L BUN (9-20) mg/dL Creatinine (0.66-1.25) mg/dL Estimated GFR ML/MIN Glucose (74-106) mg/dL Lactic Acid (0.4-2.0) Calcium (8.4-10.2) mg/dL Magnesium (1.6-2.3) mg/dL Total Bilirubin (0.2-1.3) mg/dL AST (17-59) U/L ALT (0-50) U/L Alkaline Phosphatase (38-126) U/L Troponin I < 0.012 (0.000-0.034) ng/mL NT-Pro-B Natriuret Pep < 20.0 (<300) pg/mL Serum Total Protein (6.3-8.2) g/dL Albumin (3.5-5.0) g/dL Influenza Type A Ag (NEGATIVE) Influenza Type B Ag (NEGATIVE) RSV (PCR) (NEGATIVE) SARS-CoV-2 (PCR) (NEGATIVE) 07/03/23 07/03/23 07/03/23 Range/Units 16:05 16:05 15:50 WBC (4.0-10.5) x10^3/uL RBC (4.1-5.6) x10^6/uL Hgb (12.5-18.0) g/dL Hct (42-50) % MCV (78-100) fL MCH (26-32) pg MCHC (32-36) g/dL RDW (11.5-14.0) % Plt Count (150-450) x10^3/uL MPV (7.5-11.0) fL Gran % (36.0-66.0) % Immature Gran % (Auto) (0.00-0.4) % Nucleat RBC Rel Count (0.00-0.1) % Eos # (Auto) (0-0.5) x10^3/uL Immature Gran # (Auto) (0.00-0.03) x10^3u/L Absolute Lymphs (auto) (1.0-4.6) x10^3/uL Absolute Monos (auto) (0.0-1.3) x10^3/uL Absolute Nucleated RBC (0.00-0.01) x10^3u/L Lymphocytes % (24.0-44.0) % Monocytes % (0.0-12.0) % Eosinophils % (0.00-5.0) % Basophils % (0.0-0.4) % Absolute Granulocytes (1.4-6.9) x10^3/uL Basophils # (0-0.4) x10^3/uL Sodium 136 L (137-145) mmol/L Potassium 4.1 (3.5-5.1) mmol/L Chloride 104 (98-107) mmol/L Carbon Dioxide 21 L (22-30) mmol/L Anion Gap 16.0 H (5-15) MEQ/L BUN 23 H (9-20) mg/dL Creatinine 1.33 H (0.66-1.25) mg/dL Estimated GFR 60.1 ML/MIN Glucose 257 H (74-106) mg/dL Lactic Acid 1.8 (0.4-2.0) Calcium 9.1 (8.4-10.2) mg/dL Magnesium 2.1 (1.6-2.3) mg/dL Total Bilirubin 0.30 (0.2-1.3) mg/dL AST 28 (17-59) U/L ALT 22 (0-50) U/L Alkaline Phosphatase 137 H (38-126) U/L Troponin I (0.000-0.034) ng/mL NT-Pro-B Natriuret Pep (<300) pg/mL Serum Total Protein 8.0 (6.3-8.2) g/dL Albumin 4.5 (3.5-5.0) g/dL Influenza Type A Ag NEGATIVE (NEGATIVE) Influenza Type B Ag NEGATIVE (NEGATIVE) RSV (PCR) POSITIVE (NEGATIVE) SARS-CoV-2 (PCR) NEGATIVE (NEGATIVE) - Progress Progress: improved, re-examined Air Movement: good Progress Note: 07/03/23 18:04 62 years old is evaluated in the ER for worsening cough congestion despite taking doxycycline prescribed outpatient few days ago. Patient initially had symptoms in the upper respiratory but gradually having nonproductive cough with getting out of breath because of bouts of coughing and now having wheezing as well. He has been taking breathing treatment with no significant relief. Patient on exam has bilateral wheezing but not in any obvious distress. Oxygen saturation around 95% on room air. No tachypnea or tachycardia. He is given breathing treatment and Solu-Medrol, on reevaluation he is feeling much improved. Chest x-ray negative for any acute cardiopulmonary findings reviewed by me, official report is pending. Patient baseline workup fairly unremarkable including troponin. EKG is normal sinus rhythm with no acute ischemic changes. Patient has a positive RSV. Patient is on doxycycline which I have advised him to continue. I would give him a short course of steroid as well. I do not think patient needs to be admitted or needs any other workup and is being discharged with outpatient follow-up. Discussed signs symptoms of worsening needing return to ER which she seems understanding. Stable for discharge. Blood Culture(s) Obtained: Yes Antibiotics given: No Counseled pt/family regarding: lab results, diagnosis, need for follow-up, rad results Medical Desision Making - Independent Historian Additional History obtained from: Spouse - Diagnostic Testing Diagnostic test were ordered, analyzed, and reviewed by me: Yes Radiological Interpretation: Interpreted by me, Reviewed by me - Risk of complications The pt has a mod risk of morbidity or mortality based on: Need for prescription drug management - Departure Departure Disposition: Home Clinical Impression: Acute bronchitis due to respiratory syncytial virus (RSV) Condition: Stable Critical Care Time: No Referrals: CATARINA,LAWANDA F [Primary Care Provider] - Follow up with PCP 2 days Instructions: Respiratory Syncytial Virus, Adult (DC) Additional Instructions: Use neb treatments which you have at home as recommended. Continue with antibiotics. Use [id number] cough medications as needed. Monitor your blood sugar regularly while being on steroids. Follow-up with primary care physician for reevaluation. Return to ER for any worsening. Prescriptions: Prednisone 20 mg [Deltasone 20 mg] 10 mg PO DAILY 5 Days #10 tablet
[2023-07-03 18:08] VITALS: BP 145/68
--- NOTE | 2023-07-03 21:06 | XRAY ---
Indication: Cough and short of breath. Comparison: September 22, 2022 Portable chest again demonstrates normal heart and lungs with incidental mild left hemidiaphragm elevation. Bony thorax intact again with mild degenerative changes. No new/acute findings.
== END 2023-07-03 18:16 | disposition home or self-care (01) ==
LOC: ED 15:39
DX: J20.5 Acute bronchitis due to respiratory syncytial virus (principal); R05.9 Cough, unspecified; R06.02 Shortness of breath; I10 Essential (primary) hypertension; E78.5 Hyperlipidemia, unspecified; E11.9 Type 2 diabetes mellitus without complications; Z79.52 Long term (current) use of systemic steroids; Z79.4 Long term (current) use of insulin; Z79.84 Long term (current) use of oral hypoglycemic drugs; Z79.899 Other long term (current) drug therapy
CPT/HCPCS: 0241U; 36000; 36415; 71045; 80053; 83605; 83735; 83880; 84484; 85025; 87040; 93005; 93041; 94640; 96374; 99284; J2930; A9270-GY

== ENCOUNTER 2023-11-03 12:43 | Emergency (ER) | payer MEDICARE ==
[2023-11-03 12:53] VITALS: TEMP 98
[2023-11-03] MEDS ORDERED: BABY ASPIRIN 81 MG CHEW ONE (13:09)
[2023-11-03] MEDS ORDERED: Nitrostat 0.4 MG (ED) SL ONE (13:09)
[2023-11-03] MEDS: BABY ASPIRIN 81 MG CHEW PO ONE (13:10)
[2023-11-03] MEDS: Nitrostat 0.4 MG (ED) SL ONE (13:11)
[2023-11-03 13:21] LABS: BASOPHIL % 0.5 % (0.0-0.4); Basophil (Absolute #) 0.05 x10^3/uL (0-0.4); Eosinophil % 4.6 % (0.00-5.0); Eosinophil (Absolute #) 0.47 x10^3/uL (0-0.5); Hematocrit 41.1 % (42-50); Hemoglobin 13.1 g/dL (12.5-18.0); IMMATURE GRAN # 0.04 x10^3u/L (0.00-0.03); IMMATURE GRAN % 0.4 % (0.00-0.4); Lymphocyte (Absolute #) 1.77 x10^3/uL (1.0-4.6); Lymphocytes % 17.3 % (24.0-44.0); Mean Cell Volume 83.2 fL (78-100); Mean Corpuscular Hemoglobin 26.5 pg (26-32); Mean Corpuscular Hgb Concent. 31.9 g/dL (32-36); Mean Platelet Volume 11.2 fL (7.5-11.0); Monocytes % 5.9 % (0.0-12.0); Neutrophil % 71.3 % (36.0-66.0); Platelet Count 247 x10^3/uL (150-450); Red Blood Count 4.94 x10^6/uL (4.1-5.6); Red Cell Distribution Width 14.8 % (11.5-14.0); White Blood Count 10.2 x10^3/uL (4.0-10.5)
[2023-11-03 13:39] LABS: Erythrocyte Sedimentation Rate 53 mm/hr (0-15)
[2023-11-03 13:40] LABS: ALBUMIN 4.2 g/dL (3.5-5.0); ANION GAP 15.5 MEQ/L (5-15); BILIRUBIN,TOTAL 0.5 mg/dL (0.2-1.3); Calcium 9.4 mg/dL (8.4-10.2); Creatinine 1 1.56 mg/dL (0.66-1.25); EST GLOMERULAR FILTRATION RATE 49.3 ML/MIN; Potassium 4.1 mmol/L (3.5-5.1); Total Protein 7.3 g/dL (6.3-8.2)
[2023-11-03 13:43] LABS: D-DIMER QUANTITATIVE 0.51 mg/L (0.0-0.50); INR 0.97 (0.8-3.0); PROTIME 10.6 SECONDS (9.4-12.5); PTT 27.9 SECONDS (25.1-36.5)
--- NOTE | 2023-11-03 14:04 | XRAY ---
Indication: Chest pain. Comparison: July 03, 2024 Portable chest again demonstrates normal heart and lungs. Bony thorax intact again with mild degenerative changes. No new/acute findings.
[2023-11-03 14:07] LABS: INFLUENZA A NEGATIVE (NEGATIVE); INFLUENZA B NEGATIVE (NEGATIVE); RESPIRATORY SYNCTIAL VIRUS NEGATIVE (NEGATIVE); SARS-CoV-2 Xpert Express NEGATIVE (NEGATIVE)
[2023-11-03] MEDS ORDERED: TORAdol 30 mg Injection ONE (14:13)
[2023-11-03] MEDS: TORAdol 30 mg Injection IV ONE (14:17)
[2023-11-03] MEDS ORDERED: Hydromorphone 1 mg/ml Injection ONE (15:40)
[2023-11-03] MEDS: Hydromorphone 1 mg/ml Injection IV ONE (15:41)
--- NOTE | 2023-11-03 16:38 | ERPHSYRPT ---
- History of Present Illness Time Seen by Provider: 11/03/23 12:55 Patient Subjective Stated Complaint: C/O intermittent chest pain for the past 2- 3 days. 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 Staes the following are associated with his periods of pain: C/O nausea without vomitting and lightheadedness without dizziness or falls. Triage Nursing Assessment: Patient ambulated back to ER without difficulties. He is alert and oriented. No SOB. Skin tone normal. No edema. THEODORA HOBSON. Physician History: Patient is a 63-year-old white male who a few days ago while mowing developed some chest pain. These episodes of chest pain come and go they are associated with some nausea and vomiting occasional headache and lightheadedness he also has some radiation to the left shoulder. He has had cath and does have some coronary artery disease but no stents have ever been placed. He does complain of a headache. Timing/Duration: day(s) (3) Activities at Onset: other (Mowing the lawn) Quality: stabbing Location: substernal Chest Pain Radiation: arm Severity of Pain-Max: moderate Severity of Pain-Current: mild Associated Symptoms: nausea, headache Nitro Today/Relief: no nitro taken today Aspirin Treatment Today: no aspirin today Allergies/Adverse Reactions: levofloxacin [From Levaquin] Adverse Reaction (Intermediate, Verified 07/03/23 15:47) nausea Home Medications: Citalopram Hydrobromide 20 mg* [ceLEXa 20 MG] 40 mg PO HS 05/22/19 [History] Tamsulosin HCl 0.4 mg [Flomax 0.4 MG] 0.4 mg PO DAILY 05/22/19 [History] Amitriptyline HCl 25 mg [Amitriptyline 25 mg Tablet] 25 mg PO HS 06/23/22 [History] carvediloL [Coreg] 3.125 mg PO BID 06/29/22 [History] Cyanocobalamin (Vitamin B-12) [Vitamin B-12] 1,000 mg PO UD 08/13/22 [History] Loratadine 10 mg [Claritin 10 mg] 10 mg PO UD PRN 08/13/22 [History] Testosterone Cypionate 200 mg IM UD 08/13/22 [History] Pregabalin [Lyrica] 75 mg PO BID 09/22/22 [History] Atorvastatin Calcium 40 mg PO DAILY 02/03/23 [History] Budesonide/Glycopyr/Formoterol [Breztri Aerosphere Inhaler] 5.9 gm IH BID 02/03/23 [History] Ergocalciferol (Vitamin D2) [Drisdol] 1,250 mcg PO UD 02/03/23 [History] Hydrocodone/Acetaminophen [Hydrocodone-Acetamin 10-325 mg] 1 each PO QID PRN PRN 02/03/23 [History] Insulin Lispro [Humalog Kwikpen U-200] 200 unit SQ UD 02/03/23 [History] Omeprazole 20 mg PO DAILY 02/03/23 [History] glyBURIDE [Glyburide] 1.5 mg PO DAILY 02/03/23 [History] Hx Tetanus, Diphtheria Vaccination/Date Given: Yes Hx Influenza Vaccination/Date Given: Yes Hx Pneumococcal Vaccination/Date Given: Yes Immunizations Up to Date: Yes Travel Risk - International Travel Have you traveled outside of the country in past 3 weeks: No - Emerging Infectious Disease Are you exhibiting symptoms associated with any current EIDs: No - Review of Systems Constitutional: No Fever, No Chills Eyes: No Symptoms Ears, Nose, & Throat: No Symptoms Respiratory: No Cough, No Dyspnea Cardiac: No Chest Pain, No Edema, No Syncope Abdominal/Gastrointestinal: No Abdominal Pain, No Nausea, No Vomiting, No Diarrhea Genitourinary Symptoms: No Dysuria Musculoskeletal: No Back Pain, No Neck Pain Skin: No Rash Neurological: No Dizziness, No Focal Weakness, No Sensory Changes Psychological: No Symptoms Endocrine: No Symptoms All Other Systems: Reviewed and Negative - Past Medical History Pertinent Past Medical History: Yes Neurological History: No Pertinent History ENT History: No Pertinent History Cardiac History: Coronary Artery Disease, High Cholesterol, Hypertension Respiratory History: COPD, Sleep Apnea Endocrine Medical History: Adrenal Insufficiency, Diabetes Type II Musculoskeletal History: Osteoarthritis GI Medical History: Gallbladder Disease, Ulcer History: No Pertinent History Psycho-Social History: Depression Male Reproductive Disorders: Prostate Problems Other Medical History: minor heart blockage, no stents. 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 Doyle. - Past Surgical History Past Surgical History: Yes Neuro Surgical History: No Pertinent History Cardiac: Cardiac Catheterization Respiratory: No Pertinent History Gastrointestinal: Cholecystectomy Genitourinary: No Pertinent History Musculoskeletal: Joint Replacement, Orthopedic Surgery Male Surgical History: No Pertinent History Other Surgical History: gastric bypass. bilateral knee arthroscopy and replacement, VINCENT, Back Surgery - Social History Smoking Status: Never smoker Exposure to second hand smoke: No Drug Use: none Patient Lives Alone: No - Nursing Vital Signs Nursing Vital Signs: Initial Vital Signs Temperature 98 F 11/03/23 12:50 Pulse Rate 74 11/03/23 12:50 Respiratory Rate 16 11/03/23 12:50 Blood Pressure 150/83 11/03/23 12:50 O2 Sat by Pulse Oximetry 96 11/03/23 12:50 Pain Scale Pain Intensity 0 - Physical Exam General Appearance: mild distress Eye Exam: PERRL/EOMI, eyes nml inspection Ears, Nose, Throat Exam: normal ENT inspection, moist mucous membranes Neck Exam: normal inspection, non-tender, supple, full range of motion Respiratory Exam: normal breath sounds, lungs clear, No respiratory distress Cardiovascular Exam: regular rate/rhythm, normal heart sounds Gastrointestinal/Abdomen Exam: soft, No tenderness, No mass Back Exam: normal inspection, No CVA tenderness, No vertebral tenderness Extremity Exam: normal inspection, normal range of motion Neurologic Exam: alert, oriented x 3, cooperative, normal mood/affect, sensation nml, No motor deficits Skin Exam: normal color, warm, dry SpO2 Interpretation: normal SpO2: 91 O2 Delivery: Room Air - Course Nursing assessment & vital signs reviewed: Yes EKG Interpreted by Me: RATE (69), Sinus Rhythm, NORMAL AXIS, NORMAL INTERVALS, NORMAL QRS, NORMAL ST-T - Radiology Exams Chest X-ray Interpretation: Reviewed by me Ordered Tests: Active Orders 24 hr Category Date Time Status EKG-ER Only STAT Care 11/03/23 12:57 Active IV Insertion STAT Care 11/03/23 12:57 Active CHEST 1 VIEW (PORTABLE) Stat Exams 11/03/23 13:00 Completed HEAD WITHOUT CONTRAST [CT] Stat Exams 11/03/23 15:34 Completed CBC W DIFF Stat Lab 11/03/23 13:20 Completed CK-Creatinine Phosphokinase Stat Lab 11/03/23 13:20 Completed CMP Stat Lab 11/03/23 13:20 Completed D-DIMER QUANTITATIVE Stat Lab 11/03/23 13:20 Completed Erythrocyte Sedimentation Rate Stat Lab 11/03/23 13:20 Completed LIPASE Stat Lab 11/03/23 13:20 Completed Lactic Acid Stat Lab 11/03/23 13:10 Completed Lactic Acid Stat Lab 11/03/23 15:13 Completed MAGNESIUM Stat Lab 11/03/23 13:20 Completed PROTIME WITH INR Stat Lab 11/03/23 13:20 Completed PTT Stat Lab 11/03/23 13:20 Completed TROPONIN Q4H Lab 11/03/23 13:20 Completed TROPONIN Q4H Lab 11/03/23 17:25 Received TROPONIN Q4H Lab 11/03/23 21:00 Ordered UA W/RFX UR CULTURE Stat Lab 11/03/23 16:46 Completed Urine Triage Profile Stat Lab 11/03/23 16:46 Completed Medication Summary Discontinued Medications Generic Name Dose Route Start Last Admin Trade Name Freq PRN Reason Stop Dose Admin Aspirin 324 mg 11/03/23 12:57 11/03/23 13:10 Aspirin 81 Mg Tab.Chew PO 11/03/23 12:58 324 mg STAT ONE Administration Aspirin Confirm 11/03/23 13:09 Aspirin 81 Mg Tab.Chew Administered 11/03/23 13:10 Dose 324 mg .ROUTE .STK-MED ONE Hydromorphone HCl 1 mg 11/03/23 15:33 11/03/23 15:41 Hydromorphone 1 Mg/1ml Inj IV 11/03/23 15:34 1 mg STAT ONE Administration Hydromorphone HCl Confirm 11/03/23 15:40 Hydromorphone 1 Mg/1ml Inj Administered 11/03/23 15:41 Dose 1 mg .ROUTE .STK-MED ONE Ketorolac Tromethamine 30 mg 11/03/23 14:12 11/03/23 14:17 Ketorolac Tromethamine 30 Mg/Ml Inj IV 11/03/23 14:13 30 mg STAT ONE Administration Ketorolac Tromethamine Confirm 11/03/23 14:13 Ketorolac Tromethamine 30 Mg/Ml Inj Administered 11/03/23 14:14 Dose 30 mg .ROUTE .STK-MED ONE Nitroglycerin 0.4 mg 11/03/23 12:57 11/03/23 13:11 Nitroglycerin 0.4 Mg (Ed) 0.4 Mg Tab.Subl SL 11/03/23 12:58 0.4 mg STAT ONE Administration Nitroglycerin Confirm 11/03/23 13:09 Nitroglycerin 0.4 Mg (Ed) 0.4 Mg Tab.Subl Administered 11/03/23 13:10 Dose 0.4 mg SL .STK-MED ONE Lab/Rad Data: Laboratory Result Diagrams 11/03/23 13:20 11/03/23 13:20 Laboratory Results 11/03/23 11/03/23 11/03/23 Range/Units 16:46 16:46 15:13 WBC (4.0-10.5) x10^3/uL RBC (4.1-5.6) x10^6/uL Hgb (12.5-18.0) g/dL Hct (42-50) % MCV (78-100) fL MCH (26-32) pg MCHC (32-36) g/dL RDW (11.5-14.0) % Plt Count (150-450) x10^3/uL MPV (7.5-11.0) fL Gran % (36.0-66.0) % Immature Gran % (Auto) (0.00-0.4) % Nucleat RBC Rel Count (0.00-0.1) % Eos # (Auto) (0-0.5) x10^3/uL Immature Gran # (Auto) (0.00-0.03) x10^3u/L Absolute Lymphs (auto) (1.0-4.6) x10^3/uL Absolute Monos (auto) (0.0-1.3) x10^3/uL Absolute Nucleated RBC (0.00-0.01) x10^3u/L Lymphocytes % (24.0-44.0) % Monocytes % (0.0-12.0) % Eosinophils % (0.00-5.0) % Basophils % (0.0-0.4) % Absolute Granulocytes (1.4-6.9) x10^3/uL Basophils # (0-0.4) x10^3/uL ESR (0-15) mm/hr PT (9.4-12.5) SECONDS INR (0.8-3.0) APTT (25.1-36.5) SECONDS D-Dimer (0.0-0.50) mg/L Sodium (135-145) mmol/L Potassium (3.5-5.1) mmol/L Chloride (98-107) mmol/L Carbon Dioxide (22-30) mmol/L Anion Gap (5-15) MEQ/L BUN (9-20) mg/dL Creatinine (0.66-1.25) mg/dL Estimated GFR ML/MIN Glucose (74-106) mg/dL Lactic Acid 0.8 (0.4-2.0) Calcium (8.4-10.2) mg/dL Magnesium (1.6-2.3) mg/dL Total Bilirubin (0.2-1.3) mg/dL AST (17-59) U/L ALT (0-50) U/L Alkaline Phosphatase (38-126) U/L Creatine Kinase (55-170) U/L Troponin I (0.000-0.033) ng/mL Serum Total Protein (6.3-8.2) g/dL Albumin (3.5-5.0) g/dL Lipase (23-300) U/L Urine Color Yellow (Yellow) Urine Appearance Clear (Clear) Urine pH 5.5 (4.6-8.0) Ur Specific Energy >=1.030 A (1.005-1.030) Urine Protein 30 (Negative) Urine Glucose (UA) 500 A (Negative) mg/dL Urine Ketones Negative (Negative) Urine Blood Negative (Negative) Urine Nitrite Negative (Negative) Urine Bilirubin Negative (Negative) Urine Urobilinogen 1.0 A (0.2) mg/dL Ur Leukocyte Esterase Negative (Negative) U Hyaline Cast (Auto) 3-5 A (0-2) /LPF Urine Microscopic RBC 0-2 (0-5) /HPF Urine Microscopic WBC 0-2 (0-5) /HPF Ur Epithelial Cells None Seen (None Seen) /HPF Urine Bacteria None Seen (None Seen) /HPF Urine Culture Reflexed NO (NO) Urine Opiates Level POSITIVE A (NEGATIVE) Ur Methadone NEGATIVE (NEGATIVE) Urine Barbiturates NEGATIVE (NEGATIVE) Ur Phencyclidine (PCP) NEGATIVE (NEGATIVE) Urine Amphetamine NEGATIVE (NEGATIVE) U Benzodiazepine Level NEGATIVE (NEGATIVE) Urine Cocaine NEGATIVE (NEGATIVE) Urine Marijuana (THC) NEGATIVE (NEGATIVE) Influenza Type A Ag (NEGATIVE) Influenza Type B Ag (NEGATIVE) RSV (PCR) (NEGATIVE) SARS-CoV-2 (PCR) (NEGATIVE) 11/03/23 11/03/23 11/03/23 Range/Units 13:20 13:20 13:20 WBC (4.0-10.5) x10^3/uL RBC (4.1-5.6) x10^6/uL Hgb (12.5-18.0) g/dL Hct (42-50) % MCV (78-100) fL MCH (26-32) pg MCHC (32-36) g/dL RDW (11.5-14.0) % Plt Count (150-450) x10^3/uL MPV (7.5-11.0) fL Gran % (36.0-66.0) % Immature Gran % (Auto) (0.00-0.4) % Nucleat RBC Rel Count (0.00-0.1) % Eos # (Auto) (0-0.5) x10^3/uL Immature Gran # (Auto) (0.00-0.03) x10^3u/L Absolute Lymphs (auto) (1.0-4.6) x10^3/uL Absolute Monos (auto) (0.0-1.3) x10^3/uL Absolute Nucleated RBC (0.00-0.01) x10^3u/L Lymphocytes % (24.0-44.0) % Monocytes % (0.0-12.0) % Eosinophils % (0.00-5.0) % Basophils % (0.0-0.4) % Absolute Granulocytes (1.4-6.9) x10^3/uL Basophils # (0-0.4) x10^3/uL ESR (0-15) mm/hr PT 10.6 (9.4-12.5) SECONDS INR 0.97 (0.8-3.0) APTT 27.9 (25.1-36.5) SECONDS D-Dimer 0.51 H (0.0-0.50) mg/L Sodium (135-145) mmol/L Potassium (3.5-5.1) mmol/L Chloride (98-107) mmol/L Carbon Dioxide (22-30) mmol/L Anion Gap (5-15) MEQ/L BUN (9-20) mg/dL Creatinine (0.66-1.25) mg/dL Estimated GFR ML/MIN Glucose (74-106) mg/dL Lactic Acid (0.4-2.0) Calcium (8.4-10.2) mg/dL Magnesium (1.6-2.3) mg/dL Total Bilirubin (0.2-1.3) mg/dL AST (17-59) U/L ALT (0-50) U/L Alkaline Phosphatase (38-126) U/L Creatine Kinase (55-170) U/L Troponin I < 0.012 (0.000-0.033) ng/mL Serum Total Protein (6.3-8.2) g/dL Albumin (3.5-5.0) g/dL Lipase (23-300) U/L Urine Color (Yellow) Urine Appearance (Clear) Urine pH (4.6-8.0) Ur Specific Energy (1.005-1.030) Urine Protein (Negative) Urine Glucose (UA) (Negative) mg/dL Urine Ketones (Negative) Urine Blood (Negative) Urine Nitrite (Negative) Urine Bilirubin (Negative) Urine Urobilinogen (0.2) mg/dL Ur Leukocyte Esterase (Negative) U Hyaline Cast (Auto) (0-2) /LPF Urine Microscopic RBC (0-5) /HPF Urine Microscopic WBC (0-5) /HPF Ur Epithelial Cells (None Seen) /HPF Urine Bacteria (None Seen) /HPF Urine Culture Reflexed (NO) Urine Opiates Level (NEGATIVE) Ur Methadone (NEGATIVE) Urine Barbiturates (NEGATIVE) Ur Phencyclidine (PCP) (NEGATIVE) Urine Amphetamine (NEGATIVE) U Benzodiazepine Level (NEGATIVE) Urine Cocaine (NEGATIVE) Urine Marijuana (THC) (NEGATIVE) Influenza Type A Ag NEGATIVE (NEGATIVE) Influenza Type B Ag NEGATIVE (NEGATIVE) RSV (PCR) NEGATIVE (NEGATIVE) SARS-CoV-2 (PCR) NEGATIVE (NEGATIVE) 11/03/23 11/03/23 11/03/23 Range/Units 13:20 13:20 13:10 WBC 10.2 (4.0-10.5) x10^3/uL RBC 4.94 (4.1-5.6) x10^6/uL Hgb 13.1 (12.5-18.0) g/dL Hct 41.1 L (42-50) % MCV 83.2 (78-100) fL MCH 26.5 (26-32) pg MCHC 31.9 L (32-36) g/dL RDW 14.8 H (11.5-14.0) % Plt Count 247 (150-450) x10^3/uL MPV 11.2 H (7.5-11.0) fL Gran % 71.3 H (36.0-66.0) % Immature Gran % (Auto) 0.4 (0.00-0.4) % Nucleat RBC Rel Count 0.0 (0.00-0.1) % Eos # (Auto) 0.47 (0-0.5) x10^3/uL Immature Gran # (Auto) 0.04 H (0.00-0.03) x10^3u/L Absolute Lymphs (auto) 1.77 (1.0-4.6) x10^3/uL Absolute Monos (auto) 0.60 (0.0-1.3) x10^3/uL Absolute Nucleated RBC 0.00 (0.00-0.01) x10^3u/L Lymphocytes % 17.3 L (24.0-44.0) % Monocytes % 5.9 (0.0-12.0) % Eosinophils % 4.6 (0.00-5.0) % Basophils % 0.5 (0.0-0.4) % Absolute Granulocytes 7.30 H (1.4-6.9) x10^3/uL Basophils # 0.05 (0-0.4) x10^3/uL ESR 53 H (0-15) mm/hr PT (9.4-12.5) SECONDS INR (0.8-3.0) APTT (25.1-36.5) SECONDS D-Dimer (0.0-0.50) mg/L Sodium 141 (135-145) mmol/L Potassium 4.1 (3.5-5.1) mmol/L Chloride 106 (98-107) mmol/L Carbon Dioxide 23 (22-30) mmol/L Anion Gap 15.5 H (5-15) MEQ/L BUN 17 (9-20) mg/dL Creatinine 1.56 H (0.66-1.25) mg/dL Estimated GFR 49.3 ML/MIN Glucose 253 H (74-106) mg/dL Lactic Acid 2.1 H (0.4-2.0) Calcium 9.4 (8.4-10.2) mg/dL Magnesium 2.0 (1.6-2.3) mg/dL Total Bilirubin 0.50 (0.2-1.3) mg/dL AST 27 (17-59) U/L ALT 20 (0-50) U/L Alkaline Phosphatase 116 (38-126) U/L Creatine Kinase 229 H (55-170) U/L Troponin I (0.000-0.033) ng/mL Serum Total Protein 7.3 (6.3-8.2) g/dL Albumin 4.2 (3.5-5.0) g/dL Lipase 53 (23-300) U/L Urine Color (Yellow) Urine Appearance (Clear) Urine pH (4.6-8.0) Ur Specific Energy (1.005-1.030) Urine Protein (Negative) Urine Glucose (UA) (Negative) mg/dL Urine Ketones (Negative) Urine Blood (Negative) Urine Nitrite (Negative) Urine Bilirubin (Negative) Urine Urobilinogen (0.2) mg/dL Ur Leukocyte Esterase (Negative) U Hyaline Cast (Auto) (0-2) /LPF Urine Microscopic RBC (0-5) /HPF Urine Microscopic WBC (0-5) /HPF Ur Epithelial Cells (None Seen) /HPF Urine Bacteria (None Seen) /HPF Urine Culture Reflexed (NO) Urine Opiates Level (NEGATIVE) Ur Methadone (NEGATIVE) Urine Barbiturates (NEGATIVE) Ur Phencyclidine (PCP) (NEGATIVE) Urine Amphetamine (NEGATIVE) U Benzodiazepine Level (NEGATIVE) Urine Cocaine (NEGATIVE) Urine Marijuana (THC) (NEGATIVE) Influenza Type A Ag (NEGATIVE) Influenza Type B Ag (NEGATIVE) RSV (PCR) (NEGATIVE) SARS-CoV-2 (PCR) (NEGATIVE) - Progress Progress: improved Air Movement: good Blood Culture(s) Obtained: No Antibiotics given: No Medical Desision Making - Independent Historian Additional History obtained from: Spouse - Diagnostic Testing Diagnostic test were ordered, analyzed, and reviewed by me: Yes Radiological Interpretation: Reviewed by me - Risk of complications Low Risk: Low risk of morbidity from additional dx testing or treatment - Departure Departure Disposition: Home Clinical Impression: Headache, Atypical chest pain Condition: Stable Critical Care Time: No Referrals: LAWANDA ELMORE [Primary Care Provider] - Follow up/PCP as directed Instructions: Chest Pain (DC), Headache, Adult (DC) Prescriptions: Prednisone 10 mg [Deltasone 10 mg] 10 mg PO TID 5 Days #15 tablet
--- NOTE | 2023-11-03 16:47 | XRAY ---
Indication: Headache Multiple contiguous axial images obtained through the head without contrast. Comparison: August 14, 2022 Again age-appropriate global atrophy and mild periventricular degenerative micro-ischemia bilaterally. No acute intracranial hemorrhage, abnormal extra-axial fluid collection, or mass effect. Fourth ventricle is midline without hydrocephalus. Bony calvarium intact. Visualized paranasal sinuses and mastoid air cells are clear. Impression: Continued nonacute senile brain.
[2023-11-03 16:56] LABS: Appearance Clear (Clear); Bacteria None Seen /HPF (None Seen); Bilirubin Negative (Negative); Blood Negative (Negative); Epithelial Cells None Seen /HPF (None Seen); Glucose, Urine 500 mg/dL (Negative); Ketones Negative (Negative); Leukocyte Esterase Negative (Negative); Nitrite Negative (Negative); Ph 5.5 (4.6-8.0); Protein,Urine Dip 30 (Negative); RBC 0-2 /HPF (0-5); Specific Gravity >=1.030 (1.005-1.030); WBC 0-2 /HPF (0-5)
[2023-11-03 16:59] LABS: ADD URINE CULTURE? NO (NO)
[2023-11-03 17:09] LABS: Amphetamine,Urine NEGATIVE (NEGATIVE); Barbiturate,Urine NEGATIVE (NEGATIVE); Benzodiazepine,Urine NEGATIVE (NEGATIVE); Cocaine,Urine NEGATIVE (NEGATIVE); Methadone,Urine NEGATIVE (NEGATIVE); Opiate,Urine POSITIVE (NEGATIVE); PCP,Urine NEGATIVE (NEGATIVE); THC,Urine NEGATIVE (NEGATIVE)
[2023-11-03 17:32] VITALS: BP 143/71; PULSE 63; RESP 20
[2023-11-03 17:57] VITALS: O2SAT 91
== END 2023-11-03 18:05 | disposition home or self-care (01) ==
LOC: ED 12:43
DX: R51.9 Headache, unspecified (principal); R07.89 Other chest pain; R11.2 Nausea with vomiting, unspecified; R42 Dizziness and giddiness; E78.5 Hyperlipidemia, unspecified; I10 Essential (primary) hypertension; E11.9 Type 2 diabetes mellitus without complications; Z79.4 Long term (current) use of insulin; Z79.84 Long term (current) use of oral hypoglycemic drugs; Z79.899 Other long term (current) drug therapy
CPT/HCPCS: 0241U; 36000; 36415; 70450; 71045; 80053; 80307; 81001; 82550; 83605; 83690; 83735; 84484; 85025; 85379; 85610; 85652; 85730; 93005; 96374; 96375; 99284; J1170; J1885; A9270-GY

== ENCOUNTER 2023-12-05 12:35 | Emergency (ER) | payer MEDICARE ==
[2023-12-05 12:56] VITALS: TEMP 97
[2023-12-05] MEDS ORDERED: MORPHINE SULFATE 4 MG INJ ONE (13:18)
[2023-12-05] MEDS: MORPHINE SULFATE 4 MG INJ IM ONE (13:21)
--- NOTE | 2023-12-05 13:25 | ERPHSYRPT ---
- History of Present Illness Time Seen by Provider: 12/05/23 12:53 Source: patient Exam Limitations: no limitations Patient Subjective Stated Complaint: Left sided rib pain Triage Nursing Assessment: Patient ambulated back to ED and transferred self to bed. Patient A+O X 3. Patient's skin pink, warm and dry. Patient complains of left sided rib pain 02/17. Patient states that Tuesday he was cleaning his pool and slipped landing on his left side on the pool deck. No bruising noted to left side. Physician History: 63-year-old male presented in the ER with complaint of left anterolateral chest wall pain for the last 3 days after he slipped while cleaning his pool and hit his left elbow against the ribs while hitting the pool deck. Patient reports taking Monument for his chronic pain but does not seem helping a whole lot. No difficulty breathing but hurts to take a deep breath and twisting movements. Partial relief with being still. No palpitations. No cough fever or chills reported. Allergies/Adverse Reactions: levofloxacin [From Levaquin] Adverse Reaction (Intermediate, Verified 07/03/23 15:47) nausea Home Medications: Citalopram Hydrobromide 20 mg* [ceLEXa 20 MG] 40 mg PO HS 05/22/19 [History] Tamsulosin HCl 0.4 mg [Flomax 0.4 MG] 0.4 mg PO DAILY 05/22/19 [History] Amitriptyline HCl 25 mg [Amitriptyline 25 mg Tablet] 25 mg PO HS 06/23/22 [History] carvediloL [Coreg] 3.125 mg PO BID 06/29/22 [History] Cyanocobalamin (Vitamin B-12) [Vitamin B-12] 1,000 mg PO UD 08/13/22 [History] Loratadine 10 mg [Claritin 10 mg] 10 mg PO UD PRN 08/13/22 [History] Testosterone Cypionate 200 mg IM UD 08/13/22 [History] Pregabalin [Lyrica] 75 mg PO BID 09/22/22 [History] Atorvastatin Calcium 40 mg PO DAILY 02/03/23 [History] Budesonide/Glycopyr/Formoterol [Breztri Aerosphere Inhaler] 5.9 gm IH BID 02/03/23 [History] Ergocalciferol (Vitamin D2) [Drisdol] 1,250 mcg PO UD 02/03/23 [History] Hydrocodone/Acetaminophen [Hydrocodone-Acetamin 10-325 mg] 1 each PO QID PRN PRN 02/03/23 [History] Insulin Lispro [Humalog Kwikpen U-200] 200 unit SQ UD 02/03/23 [History] Omeprazole 20 mg PO DAILY 02/03/23 [History] glyBURIDE [Glyburide] 1.5 mg PO DAILY 02/03/23 [History] Hx Tetanus, Diphtheria Vaccination/Date Given: Yes Hx Influenza Vaccination/Date Given: Yes Hx Pneumococcal Vaccination/Date Given: Yes Travel Risk - International Travel Have you traveled outside of the country in past 3 weeks: No - Emerging Infectious Disease Are you exhibiting symptoms associated with any current EIDs: No - Review of Systems Constitutional: No Symptoms Ears, Nose, & Throat: No Symptoms Respiratory: No Symptoms Cardiac: Chest Pain Abdominal/Gastrointestinal: No Symptoms Genitourinary Symptoms: No Symptoms Musculoskeletal: Fall, Other (Chest wall pain) Skin: No Symptoms Neurological: No Symptoms - Past Medical History Pertinent Past Medical History: Yes Neurological History: No Pertinent History ENT History: No Pertinent History Cardiac History: Coronary Artery Disease, High Cholesterol, Hypertension Respiratory History: COPD, Sleep Apnea Endocrine Medical History: Adrenal Insufficiency, Diabetes Type II Musculoskeletal History: Osteoarthritis GI Medical History: Gallbladder Disease, Ulcer History: No Pertinent History Psycho-Social History: Depression Male Reproductive Disorders: Prostate Problems Other Medical History: minor heart blockage, no stents. 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 Samaniego; no longer sees Dr. Doyle. - Past Surgical History Past Surgical History: Yes Neuro Surgical History: No Pertinent History Cardiac: Cardiac Catheterization Respiratory: No Pertinent History Gastrointestinal: Cholecystectomy Genitourinary: No Pertinent History Musculoskeletal: Joint Replacement, Orthopedic Surgery Male Surgical History: No Pertinent History Other Surgical History: gastric bypass. bilateral knee arthroscopy and replacement, VINCENT, Back Surgery - Social History Smoking Status: Never smoker Exposure to second hand smoke: No Drug Use: none Patient Lives Alone: No - Nursing Vital Signs Nursing Vital Signs: Initial Vital Signs Temperature 97.0 F 12/05/23 12:48 Pulse Rate 79 12/05/23 12:48 Respiratory Rate 20 12/05/23 12:48 Blood Pressure 170/94 12/05/23 12:48 O2 Sat by Pulse Oximetry 96 12/05/23 12:48 Pain Scale Pain Intensity 9 - Blair Coma Score Best Eye Response (Blair): (4) open spontaneously Best Verbal Response (Blair): (5) oriented Best Motor Response (Jimmy): (6) obeys commands Jimmy Total: 15 - Physical Exam General Appearance: no apparent distress, alert Head Injury: no evidence of injury Eye Exam: eyes nml inspection ENT Exam: airway nml, No evidence of ENT injury, No dental injury Neck Exam: supple, trachea midline, full range of motion, normal alignment Respiratory/Chest Exam: chest tenderness (Left mid anterolateral chest wall tenderness. No bruising. No crepitus.), normal breath sounds, No respiratory distress Cardiovascular Exam: normal heart sounds, regular rate/rhythm Back Exam: normal inspection, normal range of motion Extremity Exam: normal inspection, normal range of motion Neurologic Exam: alert, oriented x 3, cooperative Skin Exam: normal color SpO2 Interpretation: normal SpO2: 96 O2 Delivery: Room Air Ordered Tests: Medication Summary Discontinued Medications Generic Name Dose Route Start Last Admin Trade Name Jacksonq PRN Reason Stop Dose Admin Morphine Sulfate 4 mg 12/05/23 13:16 12/05/23 13:21 Morphine Sulfate 4 Mg/Ml Injection IM 12/05/23 13:17 4 mg STAT ONE Administration Morphine Sulfate Confirm 12/05/23 13:18 Morphine Sulfate 4 Mg/Ml Injection Administered 12/05/23 13:19 Dose 4 mg .ROUTE .STK-MED ONE - Progress Progress: improved, pain not gone completely Progress Note: 12/05/23 14:29 63-year-old is evaluated in the ER for fall with injury to left chest wall. Patient has point tenderness in the mid anterior chest. No difficulty breathing otherwise. Pain is reproducible. Given morphine for symptomatic relief and feeling better. Lungs bilateral clear to auscultation. X-ray rib series reviewed by me with questionable rib fracture followed by official read. Since patient does have tenderness, I will treat as a nondisplaced fracture. Has no pneumothorax or any other acute cardiopulmonary findings. Does not seem cardiac etiology at all but more of a musculoskeletal. Do not think he needs any other workup. He is being discharged home with lidocaine patches and does have Monument at home which she is advised to continue. Discussed signs symptoms of worsening needing return to ER which she seems understanding. Counseled pt/family regarding: diagnosis, need for follow-up, rad results Medical Desision Making - Diagnostic Testing Diagnostic test were ordered, analyzed, and reviewed by me: Yes Radiological Interpretation: Interpreted by me, Reviewed by me, Teleradiologist Report - Risk of complications The pt has a mod risk of morbidity or mortality based on: Need for prescription drug management - Departure Departure Disposition: Home Clinical Impression: Closed rib fracture Condition: Stable Critical Care Time: No Referrals: LAWANDA ELMORE [Primary Care Provider] - Follow up with PCP 1 day Instructions: Rib Fracture (DC), Bruised Rib Additional Instructions: Take pain medications which you have at home as needed. Follow-up with primary care for reevaluation. Do deep breathing exercises. Return to ER for worsening pain or if having difficulty breathing etc. Prescriptions: Lidocaine HCl 5% Patch [Lidoderm Patch 5%] 1 patch TP DAILY 12 Days #12 patch
--- NOTE | 2023-12-05 14:11 | XRAY ---
CLINICAL HISTORY: fall, left lateral chest wall pain COMPARISON: None. TECHNIQUE: Plain film of the left ribswere obtained in AP, lateral and obliqueprojections(5 views). FINDINGS: A vertical radiolucent line is noted in the left 6th posterior rib arch, but only on the oblique view is seen, possibility of undisplaced fracture cannot be entirely excluded. Otherwise, the visualized osseous structures of the leftribs appear unremarkable. There is no evidence of rib fracture or other skeletal abnormality. No evidence of pneumothorax. The visualized soft tissues appear unremarkable. IMPRESSION: A vertical radiolucent line is noted in the left 6th posterior rib arch, but only on the oblique view is seen, possibility of undisplaced fracture cannot be entirely excluded, would recommend clinical correlation for focal tenderness in this region and CT scan for further evaluation. Otherwise, the visualized osseous structures of the leftribs appear unremarkable. DISCLAIMER:A subtle bone abnormality or fracture may not be readily apparent on x-rays, thus clinical correlation and further imaging including follow up CT, MRI, or follow up x-rays are advised as needed.ER was called at [phone] at 01:05 PM [facility], and the results were verbally communicated to Dr. Kelvin Agrawal. Electronically Signed by: Isaiah Rodriges MD. (12/05/2023 14:07:40 EDT)
[2023-12-05 14:32] VITALS: O2SAT 96
[2023-12-05 14:34] VITALS: BP 159/93; PULSE 72; RESP 16
== END 2023-12-05 14:38 | disposition home or self-care (01) ==
LOC: ED 12:35
DX: S22.32XA Fracture of one rib, left side, initial encounter for closed fracture (principal); W01.0XXA Fall on same level from slipping, tripping and stumbling without subsequent striking against object, initial encounter; Y93.H9 Activity, other involving exterior property and land maintenance, building and construction; Y92.095 Swimming-pool of other non-institutional residence as the place of occurrence of the external cause; E78.5 Hyperlipidemia, unspecified; I10 Essential (primary) hypertension; E11.9 Type 2 diabetes mellitus without complications; Z79.891 Long term (current) use of opiate analgesic; Z79.4 Long term (current) use of insulin; Z79.84 Long term (current) use of oral hypoglycemic drugs; Z79.899 Other long term (current) drug therapy
CPT/HCPCS: 71101; 96372; 99283; J2270

== ENCOUNTER 2024-01-12 16:40 | Emergency (ER) | payer MEDICARE ==
[2024-01-12 16:55] VITALS: TEMP 96.3
--- NOTE | 2024-01-12 17:15 | ERPHSYRPT ---
- History of Present Illness Time Seen by Provider: 01/12/24 17:06 Source: patient Exam Limitations: no limitations Patient Subjective Stated Complaint: painful urination, urgency, frequency Triage Nursing Assessment: Pt brought to the ER by his , hypertensive, rates pain as 8/10 when urinating, states that when he urinates a sharp pain goes us his chest and down his arms and into his back, pulses normal, skin n/w/d, denies difficulty with breathing, denies any other issues Physician History: 63-year-old male presented in the ER with complaint of increased urinary frequency, hesitancy, burning/dysuria. Patient described this as a razor blade while urinating with intensity of 8/10. No hematuria. Has chronic back pain which is not any worse than usual. No associated nausea or vomiting. While urinating hurts all over. No urethral discharge. No fever or chills reported. Denies any flank pain. Allergies/Adverse Reactions: levofloxacin [From Levaquin] Adverse Reaction (Intermediate, Verified 07/03/23 15:47) nausea Home Medications: Citalopram Hydrobromide 20 mg* [ceLEXa 20 MG] 40 mg PO HS 05/22/19 [History] Tamsulosin HCl 0.4 mg [Flomax 0.4 MG] 0.4 mg PO DAILY 05/22/19 [History] Amitriptyline HCl 25 mg [Amitriptyline 25 mg Tablet] 25 mg PO HS 06/23/22 [History] carvediloL [Coreg] 3.125 mg PO BID 06/29/22 [History] Cyanocobalamin (Vitamin B-12) [Vitamin B-12] 1,000 mg PO UD 08/13/22 [History] Loratadine 10 mg [Claritin 10 mg] 10 mg PO UD PRN 08/13/22 [History] Testosterone Cypionate 200 mg IM UD 08/13/22 [History] Pregabalin [Lyrica] 75 mg PO BID 09/22/22 [History] Atorvastatin Calcium 40 mg PO DAILY 02/03/23 [History] Budesonide/Glycopyr/Formoterol [Breztri Aerosphere Inhaler] 5.9 gm IH BID 02/03/23 [History] Ergocalciferol (Vitamin D2) [Drisdol] 1,250 mcg PO UD 02/03/23 [History] Hydrocodone/Acetaminophen [Hydrocodone-Acetamin 10-325 mg] 1 each PO QID PRN PRN 02/03/23 [History] Insulin Lispro [Humalog Kwikpen U-200] 200 unit SQ UD 02/03/23 [History] Omeprazole 20 mg PO DAILY 02/03/23 [History] glyBURIDE [Glyburide] 1.5 mg PO DAILY 02/03/23 [History] Baclofen 10 mg [Lioresal 10 mg] 10 mg PO HS 01/12/24 [History] Hx Tetanus, Diphtheria Vaccination/Date Given: Yes Hx Influenza Vaccination/Date Given: Yes Hx Pneumococcal Vaccination/Date Given: Yes Travel Risk - International Travel Have you traveled outside of the country in past 3 weeks: No - Emerging Infectious Disease Are you exhibiting symptoms associated with any current EIDs: No - Past Medical History Pertinent Past Medical History: Yes Neurological History: No Pertinent History ENT History: No Pertinent History Cardiac History: Coronary Artery Disease, High Cholesterol, Hypertension Respiratory History: COPD, Sleep Apnea Endocrine Medical History: Adrenal Insufficiency, Diabetes Type II Musculoskeletal History: Osteoarthritis GI Medical History: Gallbladder Disease, Ulcer History: No Pertinent History Psycho-Social History: Depression Male Reproductive Disorders: Prostate Problems Other Medical History: minor heart blockage, no stents. Current Pocket Stitcher is Dr. Samaniego; no longer sees Dr. Doyle. - Past Surgical History Past Surgical History: Yes Neuro Surgical History: No Pertinent History Cardiac: Cardiac Catheterization Respiratory: No Pertinent History Gastrointestinal: Cholecystectomy Genitourinary: No Pertinent History Musculoskeletal: Joint Replacement, Orthopedic Surgery Male Surgical History: No Pertinent History Other Surgical History: gastric bypass. bilateral knee arthroscopy and replacement, VINCENT, Back Surgery - Social History Smoking Status: Never smoker Exposure to second hand smoke: No Drug Use: none Patient Lives Alone: No - Social Determinants of Health Will the patient participate in the screening: Yes Do you worry about a steady place to live?: No Do you have any problems with any of the following?: No known problems In the past 12 months,have you had to go without utilities?: No Transportation Issues: No Has anyone in your support network made you feel unsafe?: No Have you or anyone in your house had to go without enough: No - Review of Systems Constitutional: No Symptoms Ears, Nose, & Throat: No Symptoms Respiratory: No Symptoms Cardiac: No Symptoms Abdominal/Gastrointestinal: Abdominal Pain Genitourinary Symptoms: Dysuria, Frequency, Flank Pain Musculoskeletal: Back Pain Skin: No Symptoms Neurological: No Symptoms Psychological: No Symptoms Endocrine: No Symptoms Hematologic/Lymphatic: No Symptoms - Nursing Vital Signs Nursing Vital Signs: Initial Vital Signs Temperature 96.3 F 01/12/24 16:47 Pulse Rate 95 H 01/12/24 16:47 Blood Pressure 153/94 01/12/24 16:47 O2 Sat by Pulse Oximetry 92 L 01/12/24 16:47 Pain Scale Pain Intensity 7 - Physical Exam General Appearance: no apparent distress, alert Eye Exam: PERRL/EOMI Neck Exam: normal inspection, full range of motion Respiratory Exam: normal breath sounds, lungs clear Cardiovascular Exam: regular rate/rhythm, normal heart sounds Gastrointestinal/Abdomen Exam: soft, normal bowel sounds, tenderness (Mild suprapubic tenderness to deep palpation. No guarding or rebound tenderness.) Back Exam: normal inspection, normal range of motion, No CVA tenderness Extremity Exam: normal inspection, normal range of motion Neurologic Exam: alert, oriented x 3, cooperative Skin Exam: normal color SpO2 Interpretation: normal SpO2: 92 O2 Delivery: Room Air Ordered Tests: Active Orders 24 hr Category Date Time Status IV Insertion STAT Care 01/12/24 17:54 Active ABDOMEN AND PELVIS W/0 CONTRAS [CT] Stat Exams 01/12/24 18:47 Taken CBC W DIFF Stat Lab 01/12/24 18:15 Completed CMP Stat Lab 01/12/24 18:15 Completed CULTURE,URINE Stat Lab 01/12/24 18:22 Received LIPASE Stat Lab 01/12/24 18:15 Completed Lactic Acid Stat Lab 01/12/24 20:08 Completed UA W/RFX UR CULTURE Stat Lab 01/12/24 18:22 Completed Medication Summary Discontinued Medications Generic Name Dose Route Start Last Admin Trade Name Freq PRN Reason Stop Dose Admin Sodium Chloride 1,000 mls @ 999 mls/hr 01/12/24 17:54 01/12/24 19:32 Sodium Chloride 0.9% 1000 Ml IV 01/12/24 18:54 Infused .Q1H1M STA Infusion Sodium Chloride Confirm 01/12/24 18:17 Sodium Chloride 0.9% 1000 Ml Administered 01/12/24 18:18 Dose 1,000 mls @ ud .ROUTE .STK-MED ONE Ceftriaxone Sodium 2 gm in 100 mls @ 200 mls/hr 01/12/24 18:46 01/12/24 20:27 Rocephin 2 Gm/100 Ml Nacl IV 01/12/24 19:15 Infused STAT ONE Infusion Ceftriaxone Sodium Confirm 01/12/24 19:08 Rocephin 2 Gm/100 Ml Nacl Administered 01/12/24 19:09 Dose 2 gm in 100 mls @ ud IV .STK-MED ONE Ketorolac Tromethamine 30 mg 01/12/24 17:54 01/12/24 18:20 Ketorolac Tromethamine 30 Mg/Ml Inj IV 01/12/24 17:55 30 mg STAT ONE Administration Ketorolac Tromethamine Confirm 01/12/24 18:17 Ketorolac Tromethamine 30 Mg/Ml Inj Administered 01/12/24 18:18 Dose 30 mg .ROUTE .STK-MED ONE Lab/Rad Data: Laboratory Result Diagrams 01/12/24 18:15 01/12/24 18:15 Laboratory Results 01/12/24 01/12/24 01/12/24 Range/Units 20:08 18:22 18:15 WBC (4.23-9.07) x10^3/uL RBC (4.63-6.08) x10^6/uL Hgb (13.7-17.5) g/dL Hct (40.1-51.0) % MCV (79.0-92.2) fL MCH (25.7-32.2) pg MCHC (32.3-36.5) g/dL RDW (11.6-14.4) % Plt Count (163-337) x10^3/uL MPV (9.4-12.4) fL Gran % (34.0-67.9) % Immature Gran % (Auto) (0.001-0.429) % Nucleat RBC Rel Count (0.00-0.2) % Eos # (Auto) (0.04-0.54) x10^3/uL Immature Gran # (Auto) (0.001-0.031) x10^3u/L Absolute Lymphs (auto) (1.32-3.57) x10^3/uL Absolute Monos (auto) (0.30-0.82) x10^3/uL Absolute Nucleated RBC (0.00-0.012) x10^3u/L Lymphocytes % (21.8-53.1) % Monocytes % (5.3-12.2) % Eosinophils % (0.8-7.0) % Basophils % (0.2-1.2) % Absolute Granulocytes (1.78-5.38) x10^3/uL Basophils # (0.01-0.08) x10^3/uL Sodium 135 (135-145) mmol/L Potassium 4.8 (3.5-5.1) mmol/L Chloride 103 (98-107) mmol/L Carbon Dioxide 24 (22-30) mmol/L Anion Gap 13.0 (5-15) MEQ/L BUN 19 (9-20) mg/dL Creatinine 1.44 H (0.66-1.25) mg/dL Estimated GFR 54.3 ML/MIN Glucose 232 H (74-106) mg/dL Lactic Acid 1.3 (0.4-2.0) Calcium 9.5 (8.4-10.2) mg/dL Total Bilirubin 0.90 (0.2-1.3) mg/dL AST 31 (17-59) U/L ALT 23 (0-50) U/L Alkaline Phosphatase 132 H (38-126) U/L Serum Total Protein 7.7 (6.3-8.2) g/dL Albumin 4.2 (3.5-5.0) g/dL Lipase 24 (23-300) U/L Urine Color Yellow (Yellow) Urine Appearance Clear (Clear) Urine pH 6.5 (4.6-8.0) Ur Specific Lincoln 1.010 (1.005-1.030) Urine Protein Trace A (Negative) Urine Glucose (UA) Negative (Negative) mg/dL Urine Ketones Negative (Negative) Urine Blood Small A (Negative) Urine Nitrite Positive A (Negative) Urine Bilirubin Negative (Negative) Urine Urobilinogen 1.0 A (0.2) mg/dL Ur Leukocyte Esterase Large A (Negative) U Hyaline Cast (Auto) NONE SEEN (0-2) /LPF Urine Microscopic RBC 0-2 (0-5) /HPF Urine Microscopic WBC >100 A (0-5) /HPF Ur Epithelial Cells None Seen (None Seen) /HPF Urine Bacteria Rare A (None Seen) /HPF Urine Culture Reflexed YES (NO) 01/12/24 Range/Units 18:15 WBC 22.0 H (4.23-9.07) x10^3/uL RBC 4.90 (4.63-6.08) x10^6/uL Hgb 12.7 L (13.7-17.5) g/dL Hct 39.9 L (40.1-51.0) % MCV 81.4 (79.0-92.2) fL MCH 25.9 (25.7-32.2) pg MCHC 31.8 L (32.3-36.5) g/dL RDW 15.1 H (11.6-14.4) % Plt Count 221 (163-337) x10^3/uL MPV 11.2 (9.4-12.4) fL Gran % 86.1 H (34.0-67.9) % Immature Gran % (Auto) 0.5 H (0.001-0.429) % Nucleat RBC Rel Count 0.0 (0.00-0.2) % Eos # (Auto) 0.22 (0.04-0.54) x10^3/uL Immature Gran # (Auto) 0.10 H (0.001-0.031) x10^3u/L Absolute Lymphs (auto) 1.33 (1.32-3.57) x10^3/uL Absolute Monos (auto) 1.34 H (0.30-0.82) x10^3/uL Absolute Nucleated RBC 0.00 (0.00-0.012) x10^3u/L Lymphocytes % 6.1 L (21.8-53.1) % Monocytes % 6.1 (5.3-12.2) % Eosinophils % 1.0 (0.8-7.0) % Basophils % 0.2 (0.2-1.2) % Absolute Granulocytes 18.91 H (1.78-5.38) x10^3/uL Basophils # 0.05 (0.01-0.08) x10^3/uL Sodium (135-145) mmol/L Potassium (3.5-5.1) mmol/L Chloride (98-107) mmol/L Carbon Dioxide (22-30) mmol/L Anion Gap (5-15) MEQ/L BUN (9-20) mg/dL Creatinine (0.66-1.25) mg/dL Estimated GFR ML/MIN Glucose (74-106) mg/dL Lactic Acid (0.4-2.0) Calcium (8.4-10.2) mg/dL Total Bilirubin (0.2-1.3) mg/dL AST (17-59) U/L ALT (0-50) U/L Alkaline Phosphatase (38-126) U/L Serum Total Protein (6.3-8.2) g/dL Albumin (3.5-5.0) g/dL Lipase (23-300) U/L Urine Color (Yellow) Urine Appearance (Clear) Urine pH (4.6-8.0) Ur Specific Lincoln (1.005-1.030) Urine Protein (Negative) Urine Glucose (UA) (Negative) mg/dL Urine Ketones (Negative) Urine Blood (Negative) Urine Nitrite (Negative) Urine Bilirubin (Negative) Urine Urobilinogen (0.2) mg/dL Ur Leukocyte Esterase (Negative) U Hyaline Cast (Auto) (0-2) /LPF Urine Microscopic RBC (0-5) /HPF Urine Microscopic WBC (0-5) /HPF Ur Epithelial Cells (None Seen) /HPF Urine Bacteria (None Seen) /HPF Urine Culture Reflexed (NO) - Progress Progress: improved Progress Note: 01/12/24 20:37 63-year-old is evaluated in the ER for UTI symptoms with razor blade sensation while urinating with some hesitancy and increased frequency. Does have some low back pain as well. He is given fluids and symptomatic treatment, workup showed white count of 22, normal lactate, chemistries fairly unremarkable with CKD creatinine 1.6 which is around baseline. CT abdomen pelvis per preliminary report has some fecal stasis but no other acute abdominal pelvic findings. He is given a dose of Rocephin as patient does have a UTI with urinalysis positive for nitrites and too many WBCs. Patient is feeling better on reevaluation. I have discussed with patient about observation versus going home and he is okay with going home. He is afebrile. Has no flank tenderness. No CT evidence of pyelonephritis. Patient is not septic. I would start him on cefpodoxime to go home and outpatient follow-up recommended. Discussed signs symptoms of worsening needing return to ER which he seems understanding. Stable for discharge. Counseled pt/family regarding: lab results, diagnosis, need for follow-up, rad results Medical Desision Making - Independent Historian Additional History obtained from: Spouse - Diagnostic Testing Diagnostic test were ordered, analyzed, and reviewed by me: Yes Radiological Interpretation: Reviewed by me, Teleradiologist Report - Risk of complications The pt has a mod risk of morbidity or mortality based on: Need for prescription drug management - Departure Departure Disposition: Home Clinical Impression: Acute UTI (urinary tract infection), Constipation, Leukocytosis Condition: Stable Critical Care Time: No Referrals: LAWANDA ELMORE [Primary Care Provider] - Follow up with PCP 1 day Instructions: Urinary Tract Infection, Adult (DC) Additional Instructions: Take Tylenol as needed. Follow-up with primary care for reevaluation. Drink pl enty of fluids. Return to ER for worsening of symptoms like difficulty urination, increasing pain while urinating, flank pain, nausea vomiting/fever chills etc. Take daily MiraLAX and stool softener. Prescriptions: Cefpodoxime Proxetil 200 mg [Vantin 200 mg] 200 mg PO BID 7 Days #14 tablet
[2024-01-12] MEDS ORDERED: Sodium Chloride 0.9% 1000 ML 1,000 ML ONE (18:17)
[2024-01-12] MEDS ORDERED: TORAdol 30 mg Injection ONE (18:17)
[2024-01-12 18:18] LABS: Absolute Neutrophil Ct (ANC) 18.91 x10^3/uL (1.78-5.38); BASOPHIL % 0.2 % (0.2-1.2); Basophil (Absolute #) 0.05 x10^3/uL (0.01-0.08); Eosinophil (Absolute #) 0.22 x10^3/uL (0.04-0.54); Hematocrit 39.9 % (40.1-51.0); Hemoglobin 12.7 g/dL (13.7-17.5); IMMATURE GRAN % 0.5 % (0.001-0.429); Lymphocyte (Absolute #) 1.33 x10^3/uL (1.32-3.57); Lymphocytes % 6.1 % (21.8-53.1); Mean Cell Volume 81.4 fL (79.0-92.2); Mean Corpuscular Hemoglobin 25.9 pg (25.7-32.2); Mean Corpuscular Hgb Concent. 31.8 g/dL (32.3-36.5); Mean Platelet Volume 11.2 fL (9.4-12.4); Monocyte (Absolute #) 1.34 x10^3/uL (0.30-0.82); Monocytes % 6.1 % (5.3-12.2); Neutrophil % 86.1 % (34.0-67.9); Platelet Count 221 x10^3/uL (163-337); Red Cell Distribution Width 15.1 % (11.6-14.4)
[2024-01-12] MEDS: Sodium Chloride 0.9% 1000 ML 1,000 ML IV STA (18:18)
[2024-01-12] MEDS: TORAdol 30 mg Injection IV ONE (18:20)
[2024-01-12 18:33] LABS: ALBUMIN 4.2 g/dL (3.5-5.0); BILIRUBIN,TOTAL 0.9 mg/dL (0.2-1.3); Calcium 9.5 mg/dL (8.4-10.2); Creatinine 1 1.44 mg/dL (0.66-1.25); EST GLOMERULAR FILTRATION RATE 54.3 ML/MIN; Potassium 4.8 mmol/L (3.5-5.1); Total Protein 7.7 g/dL (6.3-8.2)
[2024-01-12 18:43] LABS: ADD URINE CULTURE? YES (NO); Appearance Clear (Clear); Bacteria Rare /HPF (None Seen); Bilirubin Negative (Negative); Blood Small (Negative); Epithelial Cells None Seen /HPF (None Seen); Glucose, Urine Negative (Negative); Hyaline Casts NONE SEEN /LPF (0-2); Ketones Negative (Negative); Leukocyte Esterase Large (Negative); Nitrite Positive (Negative); Ph 6.5 (4.6-8.0); Protein,Urine Dip Trace (Negative); RBC 0-2 /HPF (0-5); WBC >100 /HPF (0-5)
[2024-01-12] MEDS ORDERED: ROCEPHIN 2 GM/100 ML NACL 2 GM/100 ML IVPB IV ONE (19:08)
[2024-01-12 19:11] VITALS: PULSE 71; RESP 18
[2024-01-12] MEDS: ROCEPHIN 2 GM/100 ML NACL 2 GM/100 ML IVPB IV ONE (19:11)
[2024-01-12 20:42] VITALS: O2SAT 92
[2024-01-12 20:52] VITALS: BP 131/71
--- NOTE | 2024-01-13 07:55 | XRAY ---
Indication: Painful urination. UTI. Back pain. Multiple contiguous axial images obtained through the abdomen and pelvis without contrast. Comparison: January 27, 2023 Lung bases clear. Heart not enlarged. Again previous gastric bypass surgery and cholecystectomy. Noncontrasted stomach and bowels appear nonobstructed. Normal appendix. Again mild diffuse scattered colonic fecal debris and descending/sigmoid diverticulosis. Stable small right lower renal cyst and fatty liver. No free fluid/air. Remaining liver, pancreas, spleen, adrenal glands, kidneys, ureters, and bladder are unremarkable for noncontrast exam. Again minimal scattered aortoiliac calcifications without AAA. Osseous structures intact again with mild/moderate degenerative changes throughout thoracolumbar spine again greatest at L3-L4. Impression: Again mild diffuse fecal stasis, colonic diverticulosis without diverticulitis, fatty liver, right renal cyst, and multilevel degenerative spondylosis. No new/acute findings on this noncontrast exam.
== END 2024-01-12 20:54 | disposition home or self-care (01) ==
LOC: ED 16:40
DX: N39.0 Urinary tract infection, site not specified (principal); K59.00 Constipation, unspecified; D72.829 Elevated white blood cell count, unspecified; R30.0 Dysuria; R35.0 Frequency of micturition; E78.5 Hyperlipidemia, unspecified; I10 Essential (primary) hypertension; E11.9 Type 2 diabetes mellitus without complications; Z79.891 Long term (current) use of opiate analgesic; Z79.4 Long term (current) use of insulin; Z79.84 Long term (current) use of oral hypoglycemic drugs; Z79.899 Other long term (current) drug therapy
CPT/HCPCS: 36000; 36415; 74176; 80053; 81001; 83605; 83690; 85025; 87077; 87086; 87186; 96360; 96365; 96374; 99284; J0696; J1885

== ENCOUNTER 2024-01-22 21:19 | Emergency (ER) | payer MEDICARE ==
--- NOTE | 2024-01-22 21:27 | ERPHSYRPT ---
- History of Present Illness Time Seen by Provider: 01/22/24 21:27 Historian: patient, family Exam Limitations: no limitations Physician History: This is a 63-year-old white male patient of Dr. Elmore, pain specialist Dr. Mauricio and manager drug safety Dr. Poon who presents to the emergency department with 4-day history of intermittent but worsening right suprapubic abdominal pain that he describes as intermittent and stabbing. Patient completed his most recent Bactrim DS antibiotic therapy on Tuesday prior to this evaluation. Since that time he has had the intermittent, worsening symptoms as described above. He has had no nausea vomiting. He denies chest pain. He denies shortness of breath. Patient has a history of hypertension, hyperlipidemia, coronary artery disease, COPD, diabetes, adrenal insufficiency, osteoarthritis, depression and peptic ulcer disease. Timing/Duration: day(s) (4), intermittent, worse Quality: sharpness, stabbing Abdominal Pain Onset Location: suprapubic (Right suprapubic), flank (Lateral) Pain Radiation: flank (Bilateral flank) Severity of Pain-Max: moderate Modifying Factors: Improves With: nothing Associated Symptoms: diarrhea (Had a few episodes) Previous symptoms: same symptoms as today, recently seen Allergies/Adverse Reactions: levofloxacin [From Levaquin] Adverse Reaction (Intermediate, Verified 01/22/24 21:30) nausea Home Medications: Citalopram Hydrobromide 20 mg* [ceLEXa 20 MG] 40 mg PO HS 05/22/19 [History] Tamsulosin HCl 0.4 mg [Flomax 0.4 MG] 0.4 mg PO DAILY 05/22/19 [History] Amitriptyline HCl 25 mg [Amitriptyline 25 mg Tablet] 25 mg PO HS 06/23/22 [History] carvediloL [Coreg] 3.125 mg PO BID 06/29/22 [History] Cyanocobalamin (Vitamin B-12) [Vitamin B-12] 1,000 mg PO UD 08/13/22 [History] Loratadine 10 mg [Claritin 10 mg] 10 mg PO UD PRN 08/13/22 [History] Testosterone Cypionate 200 mg IM UD 08/13/22 [History] Pregabalin [Lyrica] 75 mg PO BID 09/22/22 [History] Atorvastatin Calcium 40 mg PO DAILY 02/03/23 [History] Budesonide/Glycopyr/Formoterol [Breztri Aerosphere Inhaler] 5.9 gm IH BID 02/03/23 [History] Ergocalciferol (Vitamin D2) [Drisdol] 1,250 mcg PO UD 02/03/23 [History] Hydrocodone/Acetaminophen [Hydrocodone-Acetamin 10-325 mg] 1 each PO QID PRN PRN 02/03/23 [History] Insulin Lispro [Humalog Kwikpen U-200] 200 unit SQ UD 02/03/23 [History] Omeprazole 20 mg PO DAILY 02/03/23 [History] glyBURIDE [Glyburide] 1.5 mg PO DAILY 02/03/23 [History] Baclofen 10 mg [Lioresal 10 mg] 10 mg PO HS 01/12/24 [History] Hx Tetanus, Diphtheria Vaccination/Date Given: Yes Hx Influenza Vaccination/Date Given: Yes Hx Pneumococcal Vaccination/Date Given: Yes Travel Risk - International Travel Have you traveled outside of the country in past 3 weeks: No - Emerging Infectious Disease Are you exhibiting symptoms associated with any current EIDs: No - Review of Systems Constitutional: No Symptoms Eyes: No Symptoms Ears, Nose, & Throat: No Symptoms Respiratory: No Symptoms Cardiac: No Symptoms Abdominal/Gastrointestinal: Abdominal Pain (Right suprapubic) Genitourinary Symptoms: Frequency, Urgency, Flank Pain (Bilateral) Musculoskeletal: No Symptoms Skin: No Symptoms Neurological: No Symptoms Psychological: No Symptoms Endocrine: No Symptoms Hematologic/Lymphatic: No Symptoms Immunological/Allergic: No Symptoms All Other Systems: Reviewed and Negative - Past Medical History Pertinent Past Medical History: Yes Neurological History: No Pertinent History ENT History: No Pertinent History Cardiac History: Coronary Artery Disease, High Cholesterol, Hypertension Respiratory History: COPD, Sleep Apnea Endocrine Medical History: Adrenal Insufficiency, Diabetes Type II Musculoskeletal History: Osteoarthritis GI Medical History: Gallbladder Disease, Ulcer History: No Pertinent History Psycho-Social History: Depression Male Reproductive Disorders: Prostate Problems Other Medical History: minor heart blockage, no stents. 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 Samaniego; no longer sees Dr. Doyle. - Past Surgical History Past Surgical History: Yes Neuro Surgical History: No Pertinent History Cardiac: Cardiac Catheterization Respiratory: No Pertinent History Gastrointestinal: Cholecystectomy Genitourinary: No Pertinent History Musculoskeletal: Joint Replacement, Orthopedic Surgery Male Surgical History: No Pertinent History Other Surgical History: gastric bypass. bilateral knee arthroscopy and replacement, [facility], Back Surgery - Social History Smoking Status: Never smoker Exposure to second hand smoke: No Drug Use: none Patient Lives Alone: No - Social Determinants of Health Will the patient participate in the screening: Yes Do you worry about a steady place to live?: No In the past 12 months,have you had to go without utilities?: No Transportation Issues: No Has anyone in your support network made you feel unsafe?: No Have you or anyone in your house had to go without enough: No - Nursing Vital Signs Nursing Vital Signs: Initial Vital Signs Pulse Rate 68 01/22/24 21:30 Respiratory Rate 15 01/22/24 21:30 Blood Pressure 149/97 01/22/24 21:30 O2 Sat by Pulse Oximetry 93 L 01/22/24 21:30 Pain Scale Pain Intensity 4 - Physical Exam General Appearance: no apparent distress, alert, anxiety, obese Eye Exam: PERRL/EOMI, eyes nml inspection Ears, Nose, Throat Exam: normal ENT inspection, moist mucous membranes Neck Exam: normal inspection, non-tender, supple, full range of motion Respiratory Exam: normal breath sounds, lungs clear, airway intact, No chest tenderness, No respiratory distress Cardiovascular Exam: regular rate/rhythm, normal heart sounds, normal peripheral pulses Gastrointestinal/Abdomen Exam: soft, normal bowel sounds, tenderness (Mild right suprapubic), guarding (Mild right suprapubic), No rebound Rectal Exam: not done Back Exam: normal inspection, normal range of motion, CVA tenderness, No vertebral tenderness Extremity Exam: normal inspection, normal range of motion, pelvis stable Neurologic Exam: alert, oriented x 3, cooperative, public 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 teacher II-XII nml as tested, nml cerebellar function, nml station & gait, sensation nml Skin Exam: normal color, warm, dry Lymphatic Exam: No adenopathy SpO2 Interpretation: borderline oxygenation O2 Delivery: Room Air - Course Nursing assessment & vital signs reviewed: Yes Ordered Tests: Active Orders 24 hr Category Date Time Status IV Insertion STAT Care 01/22/24 21:44 Active Oxygen-ED Only Nasal Cannula 2 lpm Care 01/22/24 22:35 Active ABDOMEN AND PELVIS W/0 CONTRAS [CT] Stat Exams 01/22/24 21:46 Completed AMYLASE Stat Lab 01/22/24 21:35 Completed CBC W DIFF Stat Lab 01/22/24 21:35 Completed CMP Stat Lab 01/22/24 21:35 Completed CULTURE,URINE Stat Lab 01/22/24 21:48 Received LIPASE Stat Lab 01/22/24 21:35 Completed UA W/RFX UR CULTURE Stat Lab 01/22/24 21:48 Completed Medication Summary Discontinued Medications Generic Name Dose Route Start Last Admin Trade Name Vianey PRN Reason Stop Dose Admin Hydromorphone HCl 1 mg 01/22/24 21:44 01/22/24 21:59 Hydromorphone 1 Mg/1ml Inj IV 01/22/24 21:45 1 mg STAT ONE Administration Hydromorphone HCl Confirm 01/22/24 21:55 Hydromorphone 1 Mg/1ml Inj Administered 01/22/24 21:56 Dose 1 mg .ROUTE .STK-MED ONE Sodium Chloride 1,000 mls @ 999 mls/hr 01/22/24 21:44 01/22/24 22:59 Sodium Chloride 0.9% 1000 Ml IV 01/22/24 22:44 Infused .Q1H1M STA Infusion Sodium Chloride Confirm 01/22/24 21:55 Sodium Chloride 0.9% 1000 Ml Administered 01/22/24 21:56 Dose 1,000 mls @ ud .ROUTE .STK-MED ONE Ceftriaxone Sodium 1 gm in 100 mls @ 200 mls/hr 01/22/24 22:33 01/22/24 23:07 Rocephin 1 Gm / 100 Ml Nacl IV 01/22/24 23:02 Infused STAT ONE Infusion Ceftriaxone Sodium Confirm 01/22/24 22:35 Rocephin 1 Gm / 100 Ml Nacl Administered 01/22/24 22:36 Dose 1 gm in 100 mls @ ud IV .STK-MED ONE Ondansetron HCl 4 mg 01/22/24 21:44 01/22/24 21:59 Ondansetron Hcl 4 Mg/2 Ml Vial IV 01/22/24 21:45 4 mg STAT ONE Administration Ondansetron HCl Confirm 01/22/24 21:54 Ondansetron Hcl 4 Mg/2 Ml Vial Administered 01/22/24 21:55 Dose 4 mg .ROUTE .STK-MED ONE Lab/Rad Data: Laboratory Result Diagrams 01/22/24 21:35 01/22/24 21:35 Laboratory Results 01/22/24 01/22/24 01/22/24 Range/Units 21:48 21:35 21:35 WBC 12.9 H (4.23-9.07) x10^3/uL RBC 5.03 (4.63-6.08) x10^6/uL Hgb 13.0 L (13.7-17.5) g/dL Hct 41.4 (40.1-51.0) % MCV 82.3 (79.0-92.2) fL MCH 25.8 (25.7-32.2) pg MCHC 31.4 L (32.3-36.5) g/dL RDW 15.0 H (11.6-14.4) % Plt Count 332 (163-337) x10^3/uL MPV 11.0 (9.4-12.4) fL Gran % 72.3 H (34.0-67.9) % Immature Gran % (Auto) 0.4 (0.001-0.429) % Nucleat RBC Rel Count 0.0 (0.00-0.2) % Eos # (Auto) 0.50 (0.04-0.54) x10^3/uL Immature Gran # (Auto) 0.05 H (0.001-0.031) x10^3u/L Absolute Lymphs (auto) 2.09 (1.32-3.57) x10^3/uL Absolute Monos (auto) 0.88 H (0.30-0.82) x10^3/uL Absolute Nucleated RBC 0.00 (0.00-0.012) x10^3u/L Lymphocytes % 16.2 L (21.8-53.1) % Monocytes % 6.8 (5.3-12.2) % Eosinophils % 3.9 (0.8-7.0) % Basophils % 0.4 (0.2-1.2) % Absolute Granulocytes 9.35 H (1.78-5.38) x10^3/uL Basophils # 0.05 (0.01-0.08) x10^3/uL Sodium 137 (135-145) mmol/L Potassium 4.3 (3.5-5.1) mmol/L Chloride 102 (98-107) mmol/L Carbon Dioxide 27 (22-30) mmol/L Anion Gap 12.6 (5-15) MEQ/L BUN 19 (9-20) mg/dL Creatinine 1.46 H (0.66-1.25) mg/dL Estimated GFR 53.4 ML/MIN Glucose 244 H (74-106) mg/dL Calcium 9.7 (8.4-10.2) mg/dL Total Bilirubin 0.50 (0.2-1.3) mg/dL AST 34 (17-59) U/L ALT 32 (0-50) U/L Alkaline Phosphatase 158 H (38-126) U/L Serum Total Protein 7.8 (6.3-8.2) g/dL Albumin 4.4 (3.5-5.0) g/dL Amylase 66 (30-110) U/L Lipase 46 (23-300) U/L Urine Color Yellow (Yellow) Urine Appearance Turbid A (Clear) Urine pH 6.0 (4.6-8.0) Ur Specific Donnelly 1.020 (1.005-1.030) Urine Protein 30 (Negative) Urine Glucose (UA) 250 A (Negative) mg/dL Urine Ketones Negative (Negative) Urine Blood Trace (Negative) Urine Nitrite Negative (Negative) Urine Bilirubin Negative (Negative) Urine Urobilinogen 1.0 A (0.2) mg/dL Ur Leukocyte Esterase Large A (Negative) U Hyaline Cast (Auto) NONE SEEN (0-2) /LPF Urine Microscopic RBC 3-5 (0-5) /HPF Urine Microscopic WBC >100 A (0-5) /HPF Ur Epithelial Cells None Seen (None Seen) /HPF Urine Bacteria None Seen (None Seen) /HPF Urine Culture Reflexed YES (NO) - Progress Progress: improved, pain not gone completely, re-examined Progress Note: 01/22/24 22:09 My medical decision making and the assignment of moderate complexity to this patient's medical issue today is based on review of the patient's past medical history, review the patient's medication list, review of patient drug allergy list, history present illness and physical findings on examination. The workup in this patient includes placement of intravenous line, infusion normal saline solution, infusion of Dilaudid, infusion of Zofran, CBC, CMP, amylase, lipase, urinalysis, CT scan of the abdomen pelvis without contrast. The differential diagnosis includes but is not limited to urinary tract infection, pyelonephritis, pancreatitis, intra-abdominal/intrapelvic acute bowel abnormality 01/23/24 00:07 I interpreted this patient's laboratory data results. Patient has a leukocytosis as well as hyperglycemia and significant urinary tract infection. There are no other acute, emergent medical issues based on the laboratory data results. CT scan of the abdomen pelvis without contrast was interpreted by the radiologist and I reviewed the impression. The impression states there is mild wall thickening with perivesical fat stranding suggesting cystitis. The appendix is unremarkable. There is uncomplicated colonic diverticulosis. Counseled pt/family regarding: lab results, diagnosis, need for follow-up, rad results Medical Desision Making - Independent Historian Additional History obtained from: Spouse - Diagnostic Testing Diagnostic test were ordered, analyzed, and reviewed by me: Yes Radiological Interpretation: Reviewed by me, Teleradiologist Report - Risk of complications The pt has a mod risk of morbidity or mortality based on: Need for prescription drug management - Departure Departure Disposition: Home Clinical Impression: UTI (urinary tract infection) Condition: Stable Critical Care Time: No Referrals: LAWANDA ELMORE [Primary Care Provider] - Follow up/PCP as directed Additional Instructions: Drink plenty of clear liquids. Take your antibiotics and other medications as prescribed. Call your primary care provider, your manager drug safety, your urologist tomorrow, 01/23/2024, to make arrangements for follow-up appointment and to be seen in the next 3 to 5 days. Prescriptions: Cefdinir 300 mg PO BID #14 cap
[2024-01-22 21:36] VITALS: TEMP 97.8
[2024-01-22] MEDS ORDERED: Zofran 4 MG/2 ML VIAL ONE (21:54)
[2024-01-22] MEDS ORDERED: Sodium Chloride 0.9% 1000 ML 1,000 ML ONE (21:55)
[2024-01-22] MEDS ORDERED: Hydromorphone 1 mg/ml Injection ONE (21:55)
[2024-01-22 21:58] LABS: Absolute Neutrophil Ct (ANC) 9.35 x10^3/uL (1.78-5.38); BASOPHIL % 0.4 % (0.2-1.2); Basophil (Absolute #) 0.05 x10^3/uL (0.01-0.08); Eosinophil % 3.9 % (0.8-7.0); Hematocrit 41.4 % (40.1-51.0); IMMATURE GRAN # 0.05 x10^3u/L (0.001-0.031); IMMATURE GRAN % 0.4 % (0.001-0.429); Lymphocyte (Absolute #) 2.09 x10^3/uL (1.32-3.57); Lymphocytes % 16.2 % (21.8-53.1); Mean Cell Volume 82.3 fL (79.0-92.2); Mean Corpuscular Hemoglobin 25.8 pg (25.7-32.2); Mean Corpuscular Hgb Concent. 31.4 g/dL (32.3-36.5); Monocyte (Absolute #) 0.88 x10^3/uL (0.30-0.82); Monocytes % 6.8 % (5.3-12.2); Neutrophil % 72.3 % (34.0-67.9); Platelet Count 332 x10^3/uL (163-337); Red Blood Count 5.03 x10^6/uL (4.63-6.08); White Blood Count 12.9 x10^3/uL (4.23-9.07)
[2024-01-22] MEDS: Sodium Chloride 0.9% 1000 ML 1,000 ML IV STA (21:58)
[2024-01-22] MEDS: Zofran 4 MG/2 ML VIAL IV ONE (21:59)
[2024-01-22] MEDS: Hydromorphone 1 mg/ml Injection IV ONE (21:59)
[2024-01-22 22:04] LABS: Appearance Turbid (Clear); Bacteria None Seen /HPF (None Seen); Bilirubin Negative (Negative); Blood Trace (Negative); Epithelial Cells None Seen /HPF (None Seen); Glucose, Urine 250 mg/dL (Negative); Hyaline Casts NONE SEEN /LPF (0-2); Ketones Negative (Negative); Leukocyte Esterase Large (Negative); Nitrite Negative (Negative); Protein,Urine Dip 30 (Negative); WBC >100 /HPF (0-5)
[2024-01-22 22:05] LABS: ADD URINE CULTURE? YES (NO)
[2024-01-22 22:10] LABS: ALBUMIN 4.4 g/dL (3.5-5.0); ANION GAP 12.6 MEQ/L (5-15); BILIRUBIN,TOTAL 0.5 mg/dL (0.2-1.3); Calcium 9.7 mg/dL (8.4-10.2); Creatinine 1 1.46 mg/dL (0.66-1.25); EST GLOMERULAR FILTRATION RATE 53.4 ML/MIN; Potassium 4.3 mmol/L (3.5-5.1); Total Protein 7.8 g/dL (6.3-8.2)
[2024-01-22] MEDS ORDERED: ROCEPHIN 1 GM / 100 ML NaCl 1 GM/100 ML IVPB IV ONE (22:35)
[2024-01-22] MEDS: ROCEPHIN 1 GM / 100 ML NaCl 1 GM/100 ML IVPB IV ONE (22:37)
[2024-01-23 00:02] VITALS: BP 126/72; PULSE 65; RESP 18; O2SAT 96
--- NOTE | 2024-01-23 00:02 | XRAY ---
CLINICAL HISTORY: Suprapubic ABD and B flank pain COMPARISON: None TECHNIQUE: CT scan of the abdomen and pelvis was performed without IV contrast. Coronal and sagittal reconstructive images were also obtained. One of the following dose reduction techniques were utilized for this exam: Automated exposure control, adjustment of the mA and/or kV according to patient size, and use of iterative reconstruction. FINDINGS: Abdomen: The liver is normal in size. No focal or diffuse parenchymal abnormality. The intrahepatic biliary radicals and the bile ducts are normal. Postcholecystectomy status. Pancreatic parenchymal atrophy noted. The spleen, adrenal glands are unremarkable. The kidneys are unremarkable. They are normal in size and shape. No calculi or hydronephrosis. Small right renal cortical cysts noted. Appendix appears unremarkable. Post gastric bypass surgery changes. Uncomplicated colonic diverticulosis noted. The visualized small bowel loops are unremarkable. Atherosclerotic changes in the abdominal aorta and its branches. Pelvis: The urinary bladder is underdistended however there is suggestion of mild wall thickening with Perivesical fat stranding, possible cystitis. The rectosigmoid colon is unremarkable. The prostate is unremarkable. Moderate spinal degenerative changes in lumbar spine. IMPRESSION: 1. Suggestion of cystitis. Recommended urinalysis and clinical correlation. 2. Uncomplicated colonic diverticulosis. Electronically Signed by: Isaiah Rodriges MD. (01/22/2024 23:57:44 EDT)
== END 2024-01-23 00:40 | disposition home or self-care (01) ==
LOC: ED 21:19
DX: N39.0 Urinary tract infection, site not specified (principal); R10.31 Right lower quadrant pain; I10 Essential (primary) hypertension; E78.5 Hyperlipidemia, unspecified; E11.9 Type 2 diabetes mellitus without complications; Z79.4 Long term (current) use of insulin; Z79.84 Long term (current) use of oral hypoglycemic drugs; Z79.899 Other long term (current) drug therapy
CPT/HCPCS: 36000; 36415; 74176; 80053; 81001; 82150; 83690; 85025; 87077; 87086; 87186; 96374; 96375; 99284; J0696; J1170; J2405

== ENCOUNTER 2025-02-06 07:21 | Day surgery (SDC) | payer MEDICARE ==
[2025-02-06] MEDS ORDERED: BUPIVACAINE 0.5% VIAL IJ ONE (07:22)
[2025-02-06] MEDS ORDERED: Depo-Medrol 40 MG/ML IM ONE (07:22)
[2025-02-06] MEDS ORDERED: Lactated Ringers 1,000 ML IV ONE (08:45)
[2025-02-06] MEDS ORDERED: propofoL IV ONE (08:49)
--- NOTE | 2025-02-06 11:31 | XRAY ---
Indication: Bilateral L4-S1 MBB. Intraoperative fluoroscopy provided for 14 seconds. Single digital spot image submitted for interpretation demonstrates posterior needle tips projecting over expected left and right L4-S1 nerve roots. Correlate with intraoperative findings/report.
--- NOTE | 2025-02-06 11:47 | XRAY ---
14 seconds of fluoroscopy was used in surgery for a bilateral L4-S1 MBB.
== END 2025-02-06 09:22 | disposition home or self-care (01) ==
LOC: SDC-PAIN 07:21
PROVIDERS: ATTEND Psychiatry & Neurology Pain Medicine
DX: M47.817 Spondylosis without myelopathy or radiculopathy, lumbosacral region (principal); E11.9 Type 2 diabetes mellitus without complications